=== PATIENT | male | born 1950 | race Caucasian/White ===

== ENCOUNTER 2024-09-27 13:03 | Inpatient (IN) ==
--- OUTSIDE RECORDS SUMMARY | 2024-09-27 13:09 | External Medical Summary | Summary of Care ---
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 documented in this encounter Nursing Notes * Taylor Bonilla NA - 09/12/2024 9:35 AM EST Rm Rothman presents for annual physical exam. Patient denies any concerns at this time. Medications & HM reviewed. documented in this encounter Plan of Treatment Upcoming Encounters Date Type Department Care Team (Late st Contact Info) Description 09/23/2024 8:20 AM EST Office Visit [facility] [address] [place] [id number] Lele Alanis MD [address] [place] [address] 09/25/2024 8:15 AM EST Cardiac Studies Cardiac Studies, [facility] [address] [place] [address] 12/29/2024 8:00 AM EDT Office Visit Cardiology, [facility] [address] [place] [address] Courtney Fonseca CRNP [address] [place] [address] 05/12/2025 10:30 AM EDT Appointment [facility] [address] [address] 05/12/2025 11:00 AM EDT Appointment Vascular Lab [address] [address] 05/12/2025 12:45 PM EDT Office Visit [facility] [address] [place] [address] Valentin Medina MD [address] [place] [address] Scheduled Procedures Name Priority Associated Diagnoses Date/Ti me COLONOSCOPY FLEXIBLE PROXIMAL DIAGNOSTIC Recall History of colon polyps Health Maintenance Due Date Last Done Comments Cologuard 1997 Fecal Occult Blood Test 1997 Sigmoidoscopy 1997 Adult Wellness Visit 2018 Colonoscopy 05/16/2021 05/16/2016, 05/01, 09/06/2007 COVID-19 Vaccine ( season) 2024 10/17/2021, 09/19/2021 Influenza Vaccine (FLU shot) (#1) 2024 Diabetic Eye Exam 12/18/2024 12/19/2023, (Done elsewhere), 11/16/2023, Additional history exists Diabetic Foot Exam 01/29/2025 01/30/2024, 1 , 08/13/2019, Additional history exists HbA1c 03/05/2025 09/04/2024, 01/29, 09/10/2023, Additional history exists Colorectal Cancer Screening 05/27/2025 Postponed from 1997 (Patient Declined After Education) DXA Scan 05/28/2025 Postponed from 1952 (Patient Declined After Education) Depression Screening 05/28/2025 05/28/2024 Zoster Vaccines (1 of 2) 05/28/2025 Pos tponed from 2002 (Patient Declined After Education) Albumin/Creatinine Ratio 09/04/2025 024, 06/11/2023, 11/21/2021, Additional history exists GFR 09/04/2025 09/04/2024, 01/31, 02/13/2024, Additional history exists DTap/Tdap Vaccines (3 - Td or Tdap) 03/07/2033 03/07/2023, 01/23/2013, 10/27/2002, Additional history exists RETIRED - COLONOSCOPY-EVERY 5 YRS AGES 18-100 Discontinued 05/16/2016, 05/16/2016, 09/06/2007 Pneumococcal Vaccine: 65+ Years Completed 11/21/2021, 09/12/2019, 12/27/2004 HPV (Gardasil) Vaccine Aged Out No lo nger eligible based on patient's age to complete this topic Hepatitis B Vaccine Aged Out No longe r eligible based on patient's age to complete this topic MENINGOCOCCAL (MENACTRA/MENVEO) Aged Out No longer eligible based on patient's age to complete this topic documented as of this encounter Medical Devices Not on filedocumented as of this encounter Procedures Procedure Name Priority Date/Time Associated Diagnosis Comments VISUAL ACUITY SCREEN, NURSE/TECH Routine 09/12/2024 Routine medical exam HEARING SCREEN Routine 09/12/2024 Routine medical exam documented in this encounter Results * VISUAL ACUITY SCREEN, NURSE/TECH (09/12/2024) 09/12/2024 Taylor Bradley NA - 09/12/2024 Vision: OD 20/20 OS 20/20 OU 20/20 Corrective Lenses readers Color Vision PASS Performed by LAM Quispe. us Valentin Poe III, MD MEDICINE Final Resul t * HEARING SCREEN (09/12/2024) 09/12/2024 Taylor Bradley NA - 09/12/2024 Hearing,Audiogram Results: Left Ear: 500Hz: No response 1000Hz: 20 decibels 2000Hz: 20 decibels 4000Hz: 20 decibels Right Ear: 500Hz: No response 1000Hz: 25 decibels 2000Hz: 25 decibels 4000Hz: No response Performed by LAM Quispe. us Valentin Poe III, MD MEDICINE Final Resul t documented in this encounter Visit Diagnoses Diagnosis Routine medical exam- Primary Routine general medical examination at a health care facility NSVT (nonsustained ventricular tachycardia) (HCC) Paroxysmal ventricular tachycardia Uncontrolled type 2 diabetes mellitus with hyperglycemia (HCC) DYSLIPIDEMIA, GOAL LDL BELOW 70 Other and unspecified hyperlipidemia Atherosclerosis of [place] coronary artery of [place] heart without angina pectoris Screening for tuberculosis Screening examination for pulmonary tuberculosis documented in this encounter Advance Directives * Full Code (Latest Code Status on File) Date Activated Date Inactivated Comments 03/27/2024 7:42 AM 03/27/2024 12:10 PM This order reflects the patients wishes and were consensually agreed upon. Question Answer Comments Discussion of Advance Directives occurred with: Patient * Full Code Date Activated Date Inactivated Comments 03/27/2024 6:06 AM 03/27/2024 7:42 AM This order r eflects the patients wishes and were consensually agreed upon. Question Answer Comments Discussion of Advance Directives occurred with: Patient * Full Code Date Activated Date Inactivated Comments 02/10/2019 11:15 PM 02/11/2019 6:39 PM This order reflects the patients wishes and were consensually agreed upon. Question Answer Comments Discussion of Advance Directives occurred with: Not Discussed Care Teams Oil Dispenser Relationship Specialty Start Date End Date Lele Alanis MD [address] [facility] [id number] PCP - General Family Medicine 11/09/18 documented as of this encounter
--- OUTSIDE RECORDS SUMMARY | 2024-09-27 13:09 | External Medical Summary | Summary of Care ---
Author Name Unknown Organization [facility] Address [address] [place] [address] Phone [phone] Care Team Providers Care String Top Sealer Name Role Phone Lele Alanis MD Primary Care Provider [phone] Reason for Referral * Evaluate & Treat - Unlimited Visits (Within 30 days (routine)) - Authorized Specialty Diagnoses / Procedures Referred By Michi young Referred To Contact Podiatry Diagnoses Type 2 diabetes mellitus with diabetic neuropathy, without long-term current use of insulin (HCC) Lele Alanis MD [address] [place] [address] [place] [address] Phone: tel: fax: Referral ID Status Reason Start Date Expiration Date Visits Requested Visits Authorized [id number] Authorized Specialty Services Required 4 [phone] Question Answer Referral Priority Within 30 days (routine) Where should this appointment be scheduled? [facility] Which condition are you referring this patient for? Diabetic foot care/pain Specific condition? Diabetic Foot care Medicare Patient? Yes Can Patient perform routine footcare without assistance? No Does patient have a chronic condition? Yes Has patient been seen in the past 6 months? Yes Date last seen for chronic condition: 09/23/2024 Who saw patient for chronic condition? Zeke Reason for Visit * Reason Comments Follow Up Pt states that he is here for a yearly visit Encounter Details Date Type Department Care Team (Late st Contact Info) Description 09/23/2024 8:20 AM EST [facility] [place] [facility] [address] [place] [phone] Lele Alanis MD [address] [place] [id number] Uncontrolled type 2 diabetes mellitus with hyperglycemia ([facility])*; Toe infection; PVD (peripheral vascular disease) ([facility]); OLD MYOCARDIAL INFARCT; Type 2 diabetes mellitus with diabetic neuropathy, without long-term current use of insulin ([facility]) Allergies Active Allergy Reactions Criticality Noted Date Comments Clarithromycin 02/22/2001 n/v Metformin Low 03/25/2013 Diarrhea documented as of this encounter (statuses as of 09/23/2024) Medications ASPIRIN 81 MG PO CHEW One pill by mouth once a day with food 100 5 01/20/20 08 Active ONETOUCH DELICA PLUS LANCETS MISC Use to test blood sugar up to 4 times daily dx e11.9 100 Each 5 06/13/20 19 Active Blood Glucose Monitoring Suppl (ACCU-CHEK GUIDE RI) w/Device KITIndications:Type 2 diabetes mellitus with hemoglobin A1c goal of less than 7.0% ([facility]) Use as directed. Use to check blood sugars up to 4 times a day DX:E11.9 1 Kit 06/16/20 19 Active Glucose Blood (ACCU-CHEK GUIDE) STRPIndications:Typ e 2 diabetes mellitus with hemoglobin A1c goal of less than 7.0% ([facility]) Use to check blood sugars up to [...] hemoglobin A1c goal of less than 7.0% ([facility]) Use with Lantus solostar pen up to 2 times daily e11.7 180 Each 3 11/27/19 24 Active Vitamin D3 50 MCG (1999 [place]) Oral CapsuleIndications: Vitamin D deficiency Take 1 Capsule by mouth in the morning. 90 Capsule 3 03/04/20 Active Additional Information Patient not taking.Reported on 09/23/2024 Clopidogrel Bisulfate 75 MG Oral Tablet (pLAVix)Indications :Atherosclerosis of [place] coronary artery of [place] heart without angina pectoris,Atheroscle rosis of coronary artery bypass graft of [place] heart with angina pectoris (HCC) Take 1 Tablet by mouth in the morning. 90 Tablet 1 04/15/20 Active Ranolazine ER 500 MG Oral Tablet Extended Release 12 Hour (Ranexa)Indications :Dyslipidemia, goal LDL below 70,DM type 2 nursing care encounter ([facility]),Type 2 diabetes mellitus with diabetic neuropathy, without long-term current use of insulin ([facility]),Atheroscleros is of coronary artery bypass graft of [place] heart with angina pectoris ([facility]) Take 1 Tablet by mouth in the morning and 1 Tablet before bedtime. 180 Tablet 1 04/15/20 Active Additional Information Patient taking differently:500 mg Oral,(No frequency reported), One tablet daily, every other day, Reported on 09/23/2024 Rosuvastatin Calcium 40 MG Oral Tablet (Crestor)Indication s:Dyslipidemia, goal LDL below 70,Atherosclerosis of coronary artery bypass graft of [place] heart with angina pectoris (HCC) Take 1 Tablet by mouth in the morning. 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 90 Tablet 3 04/15/20 Active Additional Information Patient taking differently:10 mg OralEVERY OTHER DAY, Reported on 09/23/2024 Gabapentin 300 MG Oral Capsule (Neurontin)Indicati ons:Type 2 diabetes mellitus with diabetic neuropathy, without long-term current use of insulin ([facility]) Take 1 Capsule by mouth in the morning and 1 Capsule before bedtime. E11.40. 180 Capsule 3 04/15/20 Active traMADol HCl 50 MG Oral Tablet (Ultram)Indications :Pain of toe, unspecified laterality Take 1 Tablet by mouth 3 times a day as needed for Pain, Moderate. 25 Tablet 07/16/20 24 Active Clotrimazole 1 % External Cream (Lotrimin) 02/28/20 24 Active Insulin Glargine Solostar 100 UNIT/ML Subcutaneous Solution Pen-injector (Lantus SoloStar)Indication s:Type 2 diabetes mellitus with hemoglobin A1c goal of less than 7.0% ([facility]) 44 units twice daily or as directed.E11.9 [...] goal LDL below 70,Coronary artery disease of [place] artery of [place] heart with stable angina pectoris ([facility]),HTN, goal below 130/80,NSVT (nonsustained ventricular tachycardia) ([facility]) Take 1 Tablet by mouth in the morning. 90 Tablet 3 08/29/20 24 Active Nitroglycerin 0.4 MG Sublingual Tablet Sublingual (Nitrostat)Indicati ons:Atherosclerosis of [place] coronary artery of [place] heart without angina pectoris Place 1 Tablet under the tongue every 5 minutes as needed for Pain, Chest. up to 3 doses in 15 minutes 25 Tablet 11 08/29/20 Active Potassium Chloride ER 10 MEQ Oral Capsule Extended ReleaseIndications: Old myocardial infarct Take 1 Capsule by mouth in the morning. 45 Capsule 3 09/23/20 24 Active documented as of this encounter (statuses as of 09/23/2024) Active Problems Problem Noted Date Diagnosed Date [...] INFARCT 04/22/2009 Overview (04/22/2009): Modified by [facility] Protocol [facility]5. 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 Study Titile: Genomic Markers for Patients with Cardiovascular Disease Project #[id number] PI: Kimmie Dubon MD Please call [phone] with study related questions Benign neoplasm of colon 09/06/2007 Overview (10/07/2007): adenomatous polyp--repeat 5 years EXAMINATION OF PARTICIPANT IN CLINICAL TRIAL 6 01/14/2010 Overview (01/14/2010): Renamed Per Clinical Trials Billing Project. [employer] Study #[id number] A clinical trial comparing treatment with cangrelor (in combination with usual care) to usual care, in subjects who require percutaneous coronary intervention Sales Advisor: Ephraim Bingham MD [phone] 1234ENTER Clinical Trial*[id number] 08/22/2006 02/15/2016 Overview (01/14/2010): Renamed Per Clinical Trials Billing Project. [employer] Study #[id number] A clinical trial comparing treatment with cangrelor (in combination with usual care) to usual care, in subjects who require percutaneous coronary intervention Sales Advisor: Ephraim Bingham MD [phone] ADVANCE DIRECTIVE INFORMATION 04/25/2005 08/04/2024 Overview (04/25/2005): Yes, Patient instructed to provide copy of advance directive for provider to review and to be scanned into Electronic Medical Record Mixed dyslipidemia 05/30/2002 9 Overview (09/15/2009): Per Lipid Taxonomy. Morbid obesity, BMI not known 05/30/2002 12/28/2009 Overview (12/28/2009): Per Obesity Taxonomy F/u of anterior myocardial infarction 05/30/2002 04/22/2009 Overview (04/22/2009): Modified by [facility] Protocol #5. Dyslipidemia, goal to be determined 05/15/2002 08/25/2009 Overview (08/25/2009): Per Lipid Taxonomy DM type 2, not at goal 02/17/200207/15 Overview (07/15/2009): Modified per Diabetes protocol #14. Type 2 diabetes mellitus wit h hemoglobin A1c goal of less than 7.0% 11/15/2007 Overview (01/25/2016): ICD-10 update of inactive term documented as of this encounter (statuses as of 09/23/2024) Immunizations Name Administration Dates Next Due COVID-19 mRNA, LNP-s, No Pre serve, 2-Dose Series (Moderna) 10/17/2021,09/19/2021 PPD 09/12/2024 Pneumococcal Conjugate Vacc, 13 Valent (Prevnar) 09/12/2019 Pneumococcal Polysaccharide PPV23 (Pneumovax) TDAP (age 10 and older)(Boostrix) 03/07/2023, documented as of this encounter Social History Tobacco Use Types Packs/Day Years Used Date Smoking Tobacco: Never Passive Smoke Exposure: Past Smokeless Tobacco: Never Tobacco Cessation:Counseling Given: Not Answered Alcohol Use Standard Drinks/Week Comments No 0 [...] 05/27/2024 Does the household have a re lar source of income? (Household - for ages [...] Sign Reading Time Taken Comments Blood Pressure 129/62 09/23/2024 7:40 AM EST Pulse 80 09/23/2024 7:40 AM EST Temperature 36.4 C (97.5 F) 09/23/2024 7:40 AM ES T Respiratory Rate 16 09/23/2024 7:40 AM EST Oxygen Saturation 96% 09/23/2024 7:40 AM EST Inhaled Oxygen Concentration - - Weight 101.2 kg (223 lb) 09/23/2024 7:40 AM EST Height 167.6 cm (5' 6") 09/23/2024 7:40 AM EST Body Mass Index 35.99 09/23/2024 7:40 AM EST documented in this encounter Functional [...] documented in this encounter Progress Notes * Lele Alanis MD - 09/23/2024 8:23 AM EST Subjective: Rm Rothman is a 74 year old male. Chief Complaint Patient presents with Follow Up Pt states that he is here for a yearly visit HPI: 74-year-old seen today for scheduled visit. When I saw him he was still having frequent episodes dizziness. That dizziness dates back to December of 2023. I let the dizziness was ultimately a result of a known cerebellar infarct it also had significant head trauma with the fall around November of 2023 in was thought to have suffered a significant concussion and postconcussion syndrome. The patientwas insistent that he will off of multiple medications in ultimately he did stop furosemide Jardiance vitamin-D and isosorbide. There was some question about him stopping metoprolol but ultimately Cardiology saw him in the end of August and documented that he was using the metoprolol and they wanted him to continue. He is scheduled for an echocardiogram as ordered by [facility] for in a few days time. Actually is doing quite well. The dizziness is not bothering him. His only concern is that his weight is up significantly today and he does not have a good explanation. His weight is up 7-9 lb. He is not aware of lower leg edema nor increased shortness of breath. His diabetes has not been controlled. His last hemoglobin A1c was over 10 and he has been off of Jardiance since last time I saw him. He worked with Dr. Thibodeaux in regards to an ulcer on the great toe of his right foot. Doing much better. He requests a referral for routine podiatry care in particular because of his history of diabetesas well as diabetic neuropathy. 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 ([facility]) Toe infection Aortocoronary bypass status Fall Poor historian Type 2 diabetes mellitus with diabetic neuropathy, without long-term current use of insulin ([facility]) Carotid stenosis, non-symptomatic, bilateral PVD (peripheral vascular disease) ([facility]) Cerebrovascular accident (CVA) ([facility]) NSVT (nonsustained ventricular tachycardia) ([facility]) Current Outpatient Medications Medication Sig Dispense Refill ASPIRIN 81 MG PO CHEW One pill by mouth once a day with food 100 5 ONETOUCH DELICA PLUS LANCETS [facility] Use to test blood sugar up to [...] 2 times daily e11.7 180 Each 3 Clopidogrel Bisulfate 75 MG Oral Tablet [...] doses in 15 minutes 25 Tablet 11 Vitamin D3 50 MCG (1999 [place]) Oral Capsule Take 1 Capsule by mouth in the morning. (Patient not taking: Reported on 09/23/2024) 90 Capsule 3 No current facility-administered medications for this visit. Review of patient's allergies indicates: Allergen Reactions Clarithromycin n/v Metformin Diarrhea Objective: BP 129/62 | Pulse 80 | Temp 97.5 F (36.4 C) (Tympanic) | Resp 16 | Ht 5' 6" (1.676 m) | Wt 223 lb (101.2 kg) | SpO2 96% | BMI 35.99 kg/m | BSA 2.17 m Physical Exam: His weight is up 9 lb compared to just 2 weeks ago. When we relayed him his weight was 221 that is still up 70 lb. CONST: alert, pleasant, no acute distress HEAD: normocephalic, atraumatic Eyes - PERRLA, EOM'I OROPHARYNX: clear, no swelling or erythema, moist CV: regular rate and rhythm, no murmur CHEST: clear to auscultation bilaterally, no rales or wheezing ABD: soft, non tender, non distended, no masses or hepatosplenomegaly EXT: no edema, no joint swelling or deformities, ASSESSMENT/PLAN: 1. Diabetes mellitus-suboptimal control. I recommended he start the Jardiance 25 mg once daily. If he develops same type of dizziness as before, will take him off the Jardiance and see if it resolves. If that is the case and will need to initiate more aggressive insulin Um treatment. 2. Weight gain-etiology is unclear although was such a quick rise in weight, fluid retention Um is thought most likely. He does not have a history of heart failure but he does have known ischemic heart disease and some decrease cardiac wall motion as well as grade 1 diastolic dysfunction. Will restart furosemide 20 mg but he will take it every other day along with potassium 10 mEq every other day. He will need to have a basic metabolic panel done as well as hemoglobin A1c before I see him againin 3 months Coronary artery disease-he is going to stay off of isosorbide as his blood pressure is at best marginal in Cardiology had already indicated the same Referral is made for [facility] for routine diabetic foot care. Check-out note: Please nikolai with [facility] Nurse visit for weight check about 1 week Lele Alanis MD documented in this encounter Nursing Notes * Ellie Solomon LPN - 09/23/2024 7:40 AM EST Rm Rothman is a 74 year old male who presents today for Chief Complaint Patient presents with Follow Up Pt states that he is here for a yearly visit documented in this encounter Plan of Treatment Upcoming Encounters Date Type Department Care Team (Late st Contact Info) Description 09/25/2024 8:15 AM EST Cardiac Studies Cardiac Studies, [facility] [address] [facility] [place] [address] 09/30/2024 1:30 PM EST Nurse Only Ancillary Department, Shayan Salazar [address] [facility] [place] [phone] Shayan, Nurse [address] [place] [address] 12/24/2024 7:40 AM EDT Office Visit [facility] [place] [facility] [address] [facility] [place] [phone] Lele Alanis MD [address] [facility] [place] [address] 12/29/2024 8:00 AM EDT Office Visit Cardiology, [facility] [address] [facility] [place] [address] Courtney Fonseca CRNP [address] [place] [address] [place] [address] 05/12/2025 10:30 AM EDT App[address]ment [facility] [address] [address] 05/12/2025 11:00 AM EDT Appointment Vascular Lab [place] [address] [place] [address] 05/12/2025 12:45 PM EDT Office Visit Vascular Surg [place] [address] [place] [address] Valentin Medina MD [address] [place] [address] Scheduled Orders Name Type Priority Associated Diagnoses Orde r Schedule HEMOGLOBIN A1C Lab Routine Uncontrolled type 2 diabetes mellitus with hyperglycemia (HCC) Expected: 09/23/2024 (Approximate), Expires: 09/23/2025 BASIC METABOLIC PANEL Lab Routine OLD MYOCARDIAL INFARCT Expected: 09/23/2024 (Approximate), Expires: 09/23/2025 Scheduled Procedures Name Priority Associated Diagnoses Date/Ti me COLONOSCOPY FLEXIBLE PROXIMAL DIAGNOSTIC Recall History of colon polyps Scheduled Referrals Name Type Priority Associated Diagnoses Orde r Schedule PODIATRY REFERRAL OP Referral Within 30 days (routine) Type 2 diabetes mellitus with diabetic neuropathy, without long-term current use of insulin (HCC) Ordered: 09/23/2024 Health Maintenance Due Date Last Done Comments [...] Not on filedocumented as of this encounter Visit Diagnoses Diagnosis Uncontrolled type 2 diabetes mellitus with hyperglycemia (HCC)- Primary Toe infection Unspecified local infection of skin and subcutaneous tissue PVD (peripheral vascular disease) (HCC) Peripheral vascular disease, unspecified OLD MYOCARDIAL INFARCT Old myocardial infarction Type 2 diabetes mellitus with diabetic neuropathy, without long-term current use of insulin (HCC) documented in this encounter Advance Directives * [...] Directives occurred with: Not Discussed Care Teams String Top Sealer Relationship Specialty Start Date End Date Lele Alanis MD PCP - General Family Medicine 11/09/18 documented as of this encounter
--- OUTSIDE RECORDS SUMMARY | 2024-09-27 13:10 | External Medical Summary | Summary of Care ---
Author Name Unknown Organization [facility] Address [address] [place] [address] Phone [phone] Care Team Providers Care Parole Board Member Name Role Phone Lele Alanis MD Primary Care Provider [phone] Reason for Visit * Reason Comments Follow Up Right foot plantar - -- left * Evaluate & Treat - Unlimited Visits (Within 10 days (routine)) - Authorized Specialty Diagnoses / Procedures Referred By Contac t Referred To Contact Wound Care Diagnoses Unspecified open wound, unspecified lower leg, initial encounter Lele Alanis MD [address] [place] [address] Phone: tel: fax: Referral ID Status Reason Start Date Expiration Date Visits Requested Visits Authorized [id number] Authorized Specialty Services Required 02/06/2024 [id number] Encounter Details Date Type Department Care Team (Late st Contact Info) Description 09/04/2024 1:20 PM EST Office Visit Wound Care, [facility] [address] [place] [address] Maria E Thibodeaux DPM [address] [place], [place] [id number] Diabetic ulcer of toe of right foot associated with type 2 diabetes mellitus, with fat layer exposed (HCC)*; Type 2 diabetes mellitus with diabetic neuropathy, without long-term current use of insulin ([facility]) Allergies Active Allergy Reactions Criticality Noted Date Comments Clarithromycin 02/22/2001 n/v Metformin Low 03/25/2013 Diarrhea documented as of this encounter (statuses as of 09/05/2024) Medications ASPIRIN 81 MG PO CHEW One pill by mouth once a day with food 100 5 01/20/20 08 Active ONETOUCH DELICA PLUS LANCETS [facility] Use to test blood sugar up to 4 times daily dx e11.9 100 Each 5 06/13/20 19 Active Blood Glucose Monitoring Suppl (ACCU-CHEK GUIDE OR) w/Device KITIndications:Type 2 diabetes mellitus with hemoglobin A1c goal of less than 7.0% ([facility]) Use as directed. Use to check blood sugars up to 4 times a day DX:E11.9 1 Kit 06/16/20 19 Active Glucose Blood (ACCU-CHEK GUIDE) STRPIndications:Typ e 2 diabetes mellitus with hemoglobin A1c goal of less than 7.0% ([facility]) Use to check blood sugars up to [...] hemoglobin A1c goal of less than 7.0% ([facility]) Use with Lantus solostar pen up to 2 times daily e11.7 180 Each 3 11/27/19 24 Active Vitamin D3 50 MCG (1999 UT) Oral CapsuleIndications: Vitamin D deficiency Take 1 Capsule by mouth in the morning. 90 Capsule 3 03/04/20 24 Active Clopidogrel Bisulfate 75 MG Oral Tablet (pLAVix)Indications :Atherosclerosis of kaibab coronary artery of kaibab heart without angina pectoris,Atheroscle rosis of coronary artery bypass graft of kaib[place] heart with angina pectoris ([facility]) Take 1 Tablet by mouth in the morning. 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 90 Tablet 3 08/29/20 24 Active Nitroglycerin 0.4 MG Sublingual Tablet Sublingual (Nitrostat)Indicati ons:Atherosclerosis of kaibab coronary artery of kaibab heart without angina pectoris Place 1 Tablet under the tongue every 5 minutes as needed for Pain, Chest. up to 3 doses in 15 minutes 25 Tablet 11 08/29/20 24 Active documented as of this encounter (statuses as of 09/05/2024) Active Problems Problem Noted Date Diagnosed Date Cerebrovascular accident (CVA) 08/29/2024 Carotid stenosis, non-symptomatic, [...] INFARCT 04/22/2009 Overview (04/22/2009): Modified by Acute CT Protocol #5. 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 Study Titile: Genomic Markers for Patients with Cardiovascular Disease Project #[id number] PI: Kimmie Dubon MD Please call [phone] with study related questions Benign neoplasm of colon 09/06/2007 Overview (10/07/2007): adenomatous polyp--repeat 5 years EXAMINATION OF PARTICIPANT IN CLINICAL TRIAL 6 01/14/2010 Overview (01/14/2010): Renamed Per Clinical Trials Billing Project. NUOFFER Study #[id number] A clinical trial comparing treatment with cangrelor (in combination with usual care) to usual care, in subjects who require percutaneous coronary intervention Chief Development Officer: Ephraim Bingham MD [phone] [employer] Clinical Trial*[id number] 08/22/2006 02/15/2016 Overview (01/14/2010): Renamed Per Clinical Trials Billing Project. NUOFFER Study # A clinical trial comparing treatment with cangrelor (in combination with usual care) to usual care, in subjects who require percutaneous coronary intervention Chief Development Officer: Ephraim Bingham MD [phone] ADVANCE DIRECTIVE INFORMATION 04/25/2005 08/04/2024 Overview (04/25/2005): Yes, Patient instructed to provide copy of advance directive for provider to review and to be scanned into Electronic Medical Record Mixed dyslipidemia 05/30/2002 9 Overview (09/15/2009): Per Lipid Taxonomy. Morbid obesity, BMI not known 05/30/2002 12/28/2009 Overview (12/28/2009): Per Obesity Taxonomy F/u of anterior myocardial infarction 05/30/2002 04/22/2009 Overview (04/22/2009): Modified by Acute CT Protocol #5. Dyslipidemia, goal to be determined 05/15/2002 08/25/2009 Overview (08/25/2009): Per Lipid Taxonomy DM type 2, not at goal 02/17/200207/15 Overview (07/15/2009): Modified per Diabetes protocol #14. Type 2 diabetes mellitus wit h hemoglobin A1c goal of less than 7.0% 11/15/2007 Overview (01/25/2016): ICD-10 update of inactive term documented as of this encounter (statuses as of 09/05/2024) Immunizations Name Administration Dates Next Due COVID-19 mRNA, LNP-s, No Pre serve, 2-Dose Series (Moderna) 10/17/2021,09/19/2021 Pneumococcal Conjugate Vacc, 13 Valent (Prevnar) 09/12/2019 Pneumococcal Polysaccharide PPV23 (Pneumovax) 11/21/2021 Seasonal Influenza Vac., MDV , IM, 0.5 mL (Fluzone) 11/09/2008(Deferred: Patient Refused) TDAP (age 10 and older)(Boostrix) 03/07/2023, documented [...] on file documented as of this encounter Functional Status * Are you [...] documented in this encounter Progress Notes * Maria E Thibodeaux DPM - 09/04/2024 10:00 AM EST Images from the original note were not included. [facility] Wound Care Follow-up Note [facility] Name: Rm Rothman : 1950 Date: 09/04/2024 REASON FOR VISIT: follow up - right first toe wound SUBJECTIVE: This patient is a 74 year old male who presents today for follow up of diabetic ulcer to the right first toe. I had met Rm on 08/19/2024. The wound had been improving, so we discussed continuing current treatment - antibiotic ointment and dry gauze bandage. We also provided him with a post- operative shoe to help offload this toe. He is wearing this shoe today. He does mention wearing a boot though to shovel snow. He offers no other concerns today. 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 adenomatous polyp--repeat 5 years Chronic ischemic heart disease Coronary atherosclerosis 10/01/99 cathed and stent placed/ stress test 12/02 old infarct mid anterior septum and anterior LV wall DM type 2, not at goal ([facility]) F/u of anterior myocardial infarction non Q wave mi in Impotence of organic origin 03-13-02 Mixed dyslipidemia Morbid obesity, BMI not known ([facility]) Sleep apnea 11/15/2007 Type 2 diabetes mellitus with hemoglobin A1c goal of less than 7.0% ([facility]) 07/15/2009 Modified per Diabetes protocol #14. ICD-10 update of inactive term ALLERGIES: Review of patient's allergies indicates: Allergen Reactions Clarithromycin n/v Metformin Diarrhea REVIEW OF SYSTEMS: N/A PROBLEM FOCUSED PODIATRIC EXAM Vascular: Pedal pulses palpable including dorsalis pedis and posterior tibial artery at 2/4 bilaterally. Capillary refill time is within normal limits to all toes. Mild non-pitting edema of both lower legs. Nosignificant swelling of the right great toe. Pedal hair growth is diminished. Neurologic: Sensation (light touch) intact to the bilateral lower extremities. Musculoskeletal: No pain is reported with palpation of either foot. 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 Dermatological: There is a discolored callus (purple) to the medial aspect of the right hallux. There is an open wound to the plantar proximal right first toe with overlying callus. There is no erythema. Current dressing: See Wound Assessment Dressing change frequency: every day RLE Compression: LLE Compression: RLE Wt Bearing Offloading: LLE Wt Bearing Offloading: RLE Non-Wt Bearing Offloading: LLE Non-Wt Bearing Offloading: Offloading Surface for Bed: Offloading Surface for Chair / Wheelchair: WOUND ASSESSMENT: Alteration in Skin Integrity Right;1st Toe Plantar (Active) Clinical Image 09/04/24 1301 Drainage none 09/04/24 1301 Odor (after cleansing wound) No 09/04/24 1301 Jaida-Wound (Surrounding Skin) Callus 09/04/24 1301 Alteration in Skin Integrity Left Foot Plantar (Active) Post-debridement measurements 0.2cm x 0.2cm x 0.1cm depth. Diagnostic Studies: No new PROCEDURE: Non OR time Out: Time out was initiated under direction and supervision of provider Maria E Thibodeaux. Correct patient identity - Yes Correct side and site - Yes Procedure matches verbalized consent -Yes Correct patient position - Yes Availability of correct implants and any special equipment or special requirements - Yes Time out occurred prior to procedure start - Yes Prophylactic antibiotic timing confirmed - N/A Witness present & agrees with the time out process. Wound location: right first toe Character of Wound/Ulcer Pre Debridement: Unchanged Indication for Debridement: Abnormal Wound Edge, Abnormal Wound Base, and Slough, Exudate Instrument Used: Scalpel Tissue and/or Material Removed: Non-Viable, Callus, Slough, and Subcutaneous Tissue Bleeding: Minimal Bleeding Controlled with: Pressure Specimen Taken: None Type of Debridement: Excisional: Subcutaneous Tissue Level of Debridement: Skin Epidermis, Skin Dermis, and Subcutaneous Tissue Anesthesia: None Bioengineered Tissue/Dermal Substrate Applied: No Character of Wound/Ulcer Post Debridement: Improved Total Measurement: Total wound surface are 0.04 cm Sq. Total area debrided was 0.04 cm Sq. Procedure Tolerated: Yes Assessment: ICD-10-CM 1. Diabetic ulcer of toe of right foot associated with type 2 diabetes mellitus, with fat layer exposed ([facility]) E11.621 L97.512 2. Type 2 diabetes mellitus with diabetic neuropathy, without long-term current use of insulin (HCC) E11.40 Plan: I performed excisional wound debridement as above. The wound size is relatively unchanged but this wound does not appear infected. There was a new area of blood blister near the base which I suspect is from him wearing boots and shoveling snow. He is to avoid this if possible. I recommended we continue the silvadene and DSD daily. Nurse will apply today. He is to continue the post-operative shoe for offloading. I will plan on seeing him in 2 weeks for debridement. He is to contact this office though if he has any questions or concerns. Follow-up: 2 weeks Maria E Thibodeaux DPM 09/04/2024 6:07 PM documented in this encounter Nursing Notes * Jany Mas LPN - 09/04/2024 1:51 PM EST Post exam provided treatment per order post debridement pictures were missed related to interruption in care as taking photo on patients phone. Right great toe-- TREATMENT OF SILVADENE - DSD - [place] to secure per his request. Assisted with socks to bilateral feet then Post op shoe to Right foot and regular shoe to left -- assisted to exit exam seating then guided to check out. * Jany Mas LPN - 09/04/2024 12:56 PM EST Images from the original note were not included. Assisted to sit safely on the exam seating aware to not rise unassisted for his safety. ASKED TO HAVE BOTH FEET LOOKED AT THIS DATE. Wound to Right great toe is with firm callus over site. No issues to not of tissue to Left toes or foot. Wound then foot washed with soap and water towel dried tolerated well. documented in this encounter Plan of Treatment Upcoming Encounters Date Type Department Care Team (Late st Contact Info) Description 09/16/2024 8:20 AM EST Office Visit Wound Care, [facility] [address] [place] [address] Maria E Thibodeaux DPM [address] [place] [address] 09/23/2024 8:20 AM EST Office Visit [facility] [address] [place] [phone] Lele Alanis MD [address] [place] [address] 09/25/2024 8:15 AM EST Cardiac Studies Cardiac Studies, [facility] [address] [place] [address] 12/29/2024 8:00 AM EDT Office Visit Cardiology, [facility] [address] [place] [address] Courtney Fonseca CRNP [address] [place] [address] 05/12/2025 10:30 AM EDT Appointment V[facility] Lab [address] [address] 05/12/2025 11:00 AM EDT Appointment Vascular Lab [address] [address] 05/12/2025 12:45 PM EDT Office Visit Vascular Surg [address] [address] Valentin Medina MD [address] [place] [address] Scheduled Procedures Name Priority Associated Diagnoses Date/Ti [...] as of this encounter Visit Diagnoses Diagnosis Diabetic ulcer of toe of right foot associated with type 2 diabetes mellitus, with fat layer exposed (HCC)- Primary Type 2 diabetes mellitus with diabetic neuropathy, [...] Directives occurred with: Not Discussed Care Teams Parole Board Member Relationship Specialty Start Date End Date Lele Alanis MD [address] [place] [address] PCP - General Family Medicine 11/09/18 documented as of this encounter
--- OUTSIDE RECORDS SUMMARY | 2024-09-27 13:10 | External Medical Summary | Summary of Care ---
Author Name Unknown Organization [facility] Address [address] [facility] [place] [address] Phone [phone] Care Team Providers Care Delicatessen Department Manager Name Role Phone Lele Alanis MD Primary Care Provider [phone] Reason for Visit * Reason Comments Follow Up RIGHT FOOT Encounter Details Date Type Department Care Team (Late st Contact Info) Description 09/16/2024 8:20 AM EST Office Visit Wound Care, [facility] [address] [place] [address] Maria E Thibodeaux, DPM [address] [place], [place] [id number] Healed wound*; Type 2 diabetes mellitus with diabetic neuropathy, without long-term current use of insulin (HCC); Callus of toe [L84] Allergies Active Allergy Reactions Criticality Noted Date [...] Active Blood Glucose Monitoring Suppl (ACCU-CHEK GUIDE IA) w/Device KITIndications:Type 2 diabetes mellitus with hemoglobin A1c goal of less than 7.0% ([facility]) Use as directed. Use to check blood sugars up to 4 times a day DX:E11.9 1 Kit 06/16/20 19 Active Glucose Blood (ACCU-CHEK GUIDE) STRPIndications:Typ e 2 diabetes mellitus with hemoglobin A1c goal of less than 7.0% ([facility]) Use to check blood sugars up to [...] hemoglobin A1c goal of less than 7.0% ([facility]) Use with Lantus solostar pen up to 2 times daily e11.7 180 Each 3 11/27/19 24 Active Vitamin D3 50 MCG (1999 UT) Oral CapsuleIndications: Vitamin D deficiency Take 1 Capsule by mouth in the morning. 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 90 Tablet 1 04/15/20 24 Active Ranolazine ER 500 MG Oral Tablet Extended Release 12 Hour (Ranexa)Indications :Dyslipidemia, goal LDL below 70,DM type 2 nursing care encounter ([facility]),Type 2 diabetes mellitus with diabetic neuropathy, without long-term current use of insulin ([facility]),Atheroscleros is of coronary artery bypass graft of tangirnaq heart with angina pectoris ([facility]) Take 1 Tablet by mouth in the morning and 1 Tablet before bedtime. 180 Tablet 1 04/15/20 24 Active Additional Information Patient taking differently:500 mg Oral,(No frequency reported), One tablet daily, every other day, Reported on 09/12/2024 Rosuvastatin Calcium 40 MG Oral Tablet (Crestor)Indication s:Dyslipidemia, goal LDL below 70,Atherosclerosis of coronary artery bypass graft of [place] heart with angina pectoris ([facility]) Take 1 Tablet by mouth in the morning. 90 Tablet 3 04/15/20 24 Active Additional Information Patient taking differently:40 mg OralEVERY OTHER DAY, Reported on 09/12/2024 Ezetimibe 10 MG Oral Tablet (Zetia)Indications: Dyslipidemia, goal LDL below 70,Atherosclerosis of coronary artery bypass graft of [place] heart with angina pectoris (HCC) Take 1 Tablet by mouth in the morning. 90 Tablet 3 04/15/20 24 Active Additional Information Patient taking differently:10 mg OralEVERY OTHER DAY, Reported on 09/12/2024 Gabapentin 300 MG Oral Capsule (Neurontin)Indicati ons:Type 2 diabetes mellitus with diabetic neuropathy, without long-term current use of insulin (HCC) Take 1 Capsule by mouth in the [...] hemoglobin A1c goal of less than 7.0% ([facility]) 44 units twice daily or as directed.E11.9 [...] goal LDL below 70,Coronary artery disease of [place] artery of [place] heart with stable angina pectoris (HCC),HTN, goal below 130/80,NSVT (nonsustained ventricular tachycardia) ([facility]) Take 1 Tablet by mouth in the morning. 90 Tablet 3 08/29/20 24 Active Nitroglycerin 0.4 MG Sublingual Tablet Sublingual (Nitrostat)Indicati ons:Atherosclerosis of [place] coronary artery of [place] heart without angina pectoris Place 1 Tablet [...] INFARCT 04/22/2009 Overview (04/22/2009): Modified by Acute DE Protocol #5. 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 Study Titile: Genomic Markers for Patients with Cardiovascular Disease Project #[id number] PI: Kimmie Dubon MD Please call [phone] with study related questions Benign neoplasm of colon 09/06/2007 Overview (10/07/2007): adenomatous polyp--repeat 5 years EXAMINATION OF PARTICIPANT IN CLINICAL TRIAL 01/14/2010 Overview (01/14/2010): Renamed Per Clinical Trials Billing Project. [employer] Study #[id number] A clinical trial comparing treatment with cangrelor (in combination with usual care) to usual care, in subjects who require percutaneous coronary intervention [employer] Outsoles: Ephraim Bingham MD [phone] [employer] Clinical Trial*[id number] 08/22/2006 02/15/2016 Overview (01/14/2010): Renamed Per Clinical Trials Billing Project. [employer] Study #[id number] A clinical trial comparing treatment with cangrelor (in combination with usual care) to usual care, in subjects who require percutaneous coronary intervention [employer] Outsoles: Ephraim Bingham MD [phone] ADVANCE DIRECTIVE INFORMATION 04/25/2005 08/04/2024 Overview (04/25/2005): Yes, Patient instructed to provide copy of advance directive for provider to review and to be scanned into Electronic Medical Record Mixed dyslipidemia 05/30/2002 9 Overview (09/15/2009): Per Lipid Taxonomy. Morbid obesity, BMI not known 05/30/2002 12/28/2009 Overview (12/28/2009): Per Obesity Taxonomy F/u of anterior myocardial infarction 05/30/2002 04/22/2009 Overview (04/22/2009): Modified by Acute DE Protocol #5. Dyslipidemia, goal to be determined [...] Notes * Maria E Thibodeaux DPM - 09/16/2024 8:20 AM EST Images from the original note were not included. [facility] Wound Care Follow-up Note [facility] Name: Rm Rothman : 1950 Date: 09/16/2024 REASON FOR VISIT: follow up - right first toe wound SUBJECTIVE: This patient is a 74 year old male who presents today for follow up of diabetic ulcer to the right first toe. I had met Rm on 09/04/24. The wound appeared similar after callus was removed and he also had additional callus and blood blister to the medial toe which was new. He notes significant pain following our last appointment. He required pain medications of which he had at home. This has resolved. He continues to apply antibiotic ointment and is using the post-operative shoe.He offers no other concerns today. 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 adenomatous polyp--repeat 5 years Chronic ischemic heart disease Coronary atherosclerosis 10/01/99 cathed and stent placed/ stress test 12/02 old infarct mid anterior septum and anterior LV wall DM type 2, not at goal ([facility]) F/u of anterior myocardial infarction non Q wave mi in Impotence of organic origin 03-13-02 Mixed dyslipidemia Morbid obesity, BMI not known ([facility]) Sleep apnea 11/15/2007 Type 2 diabetes mellitus with hemoglobin A1c goal of less than 7.0% ([facility]) 07/15/2009 Modified per Diabetes protocol #14. ICD-10 [...] amputation of the left 2nd toe. Dermatological: Callus noted to the right first toe, plantar aspect. Class Findings for Routine Foot Care Class A Findings: Non-traumatic amputation of foot or integral skeletal portion thereof Class B Findings: Advanced trophic changes (at least three of the following): hair growth (decreaseor absence) Class C Findings: Paresthesia (abnormal spontaneous sensations in feet) Modifier: Q7 - 1 Class A Finding Current dressing: See Wound Assessment Dressing change frequency: every day RLE Compression: LLE Compression: RLE Wt Bearing Offloading: LLE Wt Bearing Offloading: RLE Non-Wt Bearing Offloading: LLE Non-Wt Bearing Offloading: Offloading Surface for Bed: Offloading Surface for Chair / Wheelchair: WOUND ASSESSMENT: Alteration in Skin Integrity Right;1st Toe Plantar (Active) Clinical Image 09/16/24 08 Wound Length (cm) 2.5 cm 09/16/24 08 Wound Width (cm) 1.9 cm 09/16/24 08 Wound Depth (cm) -- (Callus) 09/16/24 0808 Drainage none 09/16/24 08 Odor (after cleansing wound) No 09/16/24 08 Jaida-Wound (Surrounding Skin) Intact 09/16/24 08 Wound Surface Area (cm^2) 4.75 cm^2 09/16/24 08 Alteration in Skin Integrity Left Foot Plantar (Active) Diagnostic Studies: No new PROCEDURE: Non OR [...] & agrees with the time out process. Procedure: After prepping the area with alcohol and allowing to dry, the hyperkeratotic lesion of the right plantar hallux was sharply pared of all hyperkeratotic skin without incident. This was performed with a #15 blade. Patient tolerated well and noted improvement following procedure. Assessment: ICD-10-CM 1. Healed wound Z87.828 2. Type 2 diabetes mellitus with diabetic neuropathy, without long-term current use of insulin (HCC) E11.40 3. Callus of toe [L84] L84 Plan: I pared the right first toe callus. The wound appears closed. No dressing required. He is to check this area and both feet daily. Nurse will apply vaseline today. He is to use cream nightly to both feet. Follow up: as needed Maria E Thibodeaux DPM 09/16/2024 9:37 AM Wound Care, [address] [address] documented in this encounter Nursing Notes * Jany Mas LPN - 09/16/2024 8:41 AM EST Post exam provided treatment as follows -- Vaseline to great toe tissue then provided information per his request of lotions also let him know this would be life long care for his feet as well. Fernie was assisted with socks and shoes then guided to check out. Aware to call if any further questions of concerns. * Jany Mas LPN - 09/16/2024 8:01 AM EST Images from the original note were not included. Assisted to sit safely on exam seating aware to not rise unassisted for his safety. Presents today with Post op shoe on right foot. Fernie has asked for left shoe and sock to be removed as well -- no open tissue is to note. Right great toe area has callused over -- no open tissue and not drainage to note. Wound washed with soap and water towel dried tolerated well. Photo and measurement of wound taken. Will alert provider of ready for care an provide tx per order post exam. documented in this encounter Plan of Treatment Upcoming Encounters Date Type Department Care Team (Late st Contact Info) Description 09/23/2024 8:20 AM EST Office Visit [facility] Mathew Resendiz [address] [place] [phone] Lele Alanis MD [address] [place] [address] 09/25/2024 8:15 AM EST Cardiac Studies Cardiac Studies, [facility] [address] [facility] [place] [address] 12/29/2024 8:00 AM EDT Office Visit Cardiology, [facility] [address] [facility] [place] [address] Courtney Fonseca CRNP [address] [place] [address] 05/12/2025 10:30 AM EDT Appointment Vascular Lab [facility] [address] [place] [address] 05/12/2025 11:00 AM EDT Appointment Vascular Lab [facility] [address] [place] [address] 05/12/2025 12:45 PM EDT Office Visit Vascular Surg [facility] [address] [place] [address] Valentin Medina MD [address] [place], [place] [id number] Scheduled Procedures Name Priority Associated Diagnoses Date/Ti [...] as of this encounter Visit Diagnoses Diagnosis Healed wound- Primary Type 2 diabetes mellitus with diabetic neuropathy, without long-term current use of insulin (HCC) Callus of toe [L84] documented in this encounter Advance Directives * [...] Directives occurred with: Not Discussed Care Teams Delicatessen Department Manager Relationship Specialty Start Date End Date Lele Alanis MD [address] [place] [address] PCP - General Family Medicine 11/09/18 documented as of this encounter
--- OUTSIDE RECORDS SUMMARY | 2024-09-27 13:10 | External Medical Summary ---
Author Name Unknown Address Unknown Organization K01:[facility] [address] [place] [address] Laboratory Report Ordering Provider Test Date Status ROSALVA HARRINGTON 09/04/2024 08:22:54 Final Normal: <30 mg/g creatinine< br/>High: 30-300 mg/g creatinine
Very High: >300 mg/g creatinine
Nephrotic: >2200 mg/g creatinine Observation Date Value Abnormality Reference (Units ) Status Albumin, Urine 09/04/2024 08:22:54 <1.20 (mg/dL) Final Creatinine, Urine 09/04/2024 08:22:54 71 (mg/dL) Final Albumin/Creatinine [Mass Ratio] in Urine 09/04/2024 08:22:54 <17 <30 (mg/g Creat) Final Performing Location [facility] [address] [place] [address]
--- OUTSIDE RECORDS SUMMARY | 2024-09-27 13:10 | External Medical Summary | Summary of Care ---
Author Name Unknown Organization [facility] Address [address] [facility] [place] [address] Phone [phone] Care Team Providers Care Capacity Planner Name Role Phone Lele Alanis MD Primary Care Provider [phone] Reason for Visit * Reason Onset Date Comments TB Test [place] 09/15/2024 Encounter Details Date Type Department Care Team (Late st Contact Info) Description 09/15/2024 8:30 AM EST Nurse Only Ancillary [facility] [address] [place] [address] [place], Nurse Fam [facility] [address] [place] [address] TB Test [place] Allergies Active Allergy Reactions Criticality Noted Date Comments Clarithromycin 02/22/2001 n/v Metformin Low 03/25/2013 Diarrhea documented as of this encounter (statuses as of 09/15/2024) Medications ASPIRIN 81 MG PO CHEW One pill by mouth once a day with food 100 5 01/20/20 08 Active ONETOUCH DELICA PLUS LANCETS MISC Use to test blood sugar up to 4 times daily dx e11.9 100 Each 5 06/13/20 19 Active Blood Glucose Monitoring Suppl (ACCU-CHEK GUIDE ME) w/Device KITIndications:Type 2 diabetes mellitus with hemoglobin A1c goal of less than 7.0% ([facility]) Use as directed. Use to check blood sugars up to 4 times a day DX:E11.9 1 Kit 06/16/20 19 Active Glucose Blood (ACCU-CHEK GUIDE) STRPIndications:Typ e 2 diabetes mellitus with hemoglobin A1c goal of less than 7.0% ([facility]) Use to check blood sugars up to [...] goal of less than 7.0% ([facility]) Use with Lantus solostar pen up to 2 times daily e11.7 180 Each 3 11/27/19 24 Active Vitamin D3 50 MCG (1999 UT) Oral CapsuleIndications: Vitamin D deficiency Take 1 Capsule by mouth in the morning. 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 180 Tablet 1 04/15/20 24 Active Additional Information Patient taking differently:500 mg Oral,(No frequency reported), One tablet daily, every other day, Reported on 09/12/2024 Rosuvastatin Calcium 40 MG Oral Tablet (Crestor)Indication s:Dyslipidemia, goal LDL below 70,Atherosclerosis of coronary artery bypass graft of [place] heart with angina pectoris (HCC) Take 1 Tablet by mouth in the morning. 90 Tablet 3 04/15/20 24 Active Additional Information Patient taking differently:40 mg OralEVERY OTHER DAY, Reported on 09/12/2024 Ezetimibe 10 MG Oral Tablet (Zetia)Indications: Dyslipidemia, goal LDL below 70,Atherosclerosis of coronary artery bypass graft of [place] heart with angina pectoris (HCC) Take 1 Tablet by mouth in the morning. 90 Tablet 3 04/15/20 24 Active Additional Information Patient taking differently:10 mg OralEVERY OTHER DAY, Reported on 09/12/2024 Gabapentin 300 MG Oral Capsule (Neurontin)Indicati ons:Type 2 diabetes mellitus with diabetic neuropathy, without long-term current use of insulin ([facility]) Take 1 Capsule by mouth in the [...] goal of less than 7.0% ([facility]) 44 units twice daily or as directed.E11.9 [...] goal LDL below 70,Coronary artery disease of [place] artery of [place] heart with stable angina pectoris ([facility]),HTN, goal below 130/80,NSVT (nonsustained ventricular tachycardia) ([facility]) Take 1 Tablet by mouth in the morning. 90 Tablet 3 08/29/20 24 Active Nitroglycerin 0.4 MG Sublingual Tablet Sublingual (Nitrostat)Indicati ons:Atherosclerosis of [place] coronary artery of [place] heart without angina pectoris Place 1 Tablet under the tongue every 5 minutes as needed for Pain, Chest. up to 3 doses in 15 minutes 25 Tablet 20 24 Active documented as of this encounter (statuses as of 09/15/2024) Active Problems Problem Noted Date Diagnosed Date [...] INFARCT 04/22/2009 Overview (04/22/2009): Modified by Acute MD Protocol #5. 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 Study Titile: Gen[employer] Markers for Patients with Cardiovascular Disease Project #[id number] PI: Kimmie Dubon MD Please call [phone] with study related questions Benign neoplasm of colon 09/06/2007 Overview (10/07/2007): adenomatous polyp--repeat 5 years EXAMINATION OF PARTICIPANT IN CLINICAL TRIAL 6 01/14/2010 Overview (01/14/2010): Renamed Per Clinical Trials Billing Project. [employer] Study #[id number] A clinical trial comparing treatment with cangrelor (in combination with usual care) to usual care, in subjects who require percutaneous coronary intervention Matte Cutter: Ephraim Bingham MD [phone] [employer] Clinical Trial*[id number] 08/22/2006 02/15/2016 Overview (01/14/2010): Renamed Per Clinical Trials Billing Project. [employer] Study # A clinical trial comparing treatment with cangrelor (in combination with usual care) to usual care, in subjects who require percutaneous coronary intervention Matte Cutter: Ephraim Bingham MD [phone] ADVANCE DIRECTIVE INFORMATION 04/25/2005 08/04/2024 Overview (04/25/2005): Yes, Patient instructed to provide copy of advance directive for provider to review and to be scanned into Electronic Medical Record Mixed dyslipidemia 05/30/2002 9 Overview (09/15/2009): Per Lipid Taxonomy. Morbid obesity, BMI not known 05/30/2002 12/28/2009 Overview (12/28/2009): Per Obesity Taxonomy F/u of anterior myocardial infarction 05/30/2002 04/22/2009 Overview (04/22/2009): Modified by Acute MD Protocol #5. Dyslipidemia, goal to be determined 05/15/2002 08/25/2009 Overview (08/25/2009): Per Lipid Taxonomy DM type 2, not at goal 02/17/200207/15 Overview (07/15/2009): Modified per Diabetes protocol #14. Type 2 diabetes mellitus wit h hemoglobin A1c goal of less than 7.0% 11/15/2007 Overview (01/25/2016): ICD-10 update of inactive term documented as of this encounter (statuses as of 09/15/2024) Immunizations Name Administration Dates Next Due COVID-19 mRNA, LNP-s, No Pre serve, 2-Dose Series (Moderna) 10/17/2021,09/19/2021 Diptheria/Tetanus (Adult) 06/01/1990 PPD 09/12/2024 Pneumococcal Conjugate Vacc, 13 Valent (Prevnar) 09/12/2019 Pneumococcal Polysaccharide PPV23 (Pneumovax) ,12/27/2004 TD - Tetanus/Diptheria (ADULT) 10/27/2002 TDAP (age 10 and older)(Boostrix) 03/07/2023, documented [...] documented in this encounter Progress Notes * Keri Marin LPN - 09/15/2024 8:31 AM EST Patient here for PPD reading. PPD Results: 0 mm documented in this encounter Plan of Treatment Upcoming Encounters Date Type Department Care Team (Late st Contact Info) Description 09/16/2024 8:20 AM EST Office Visit Wound Care, [address] [place] [address] Maria E Thibodeaux DPM [address] [place] [address] 09/23/2024 8:20 AM EST Office Visit [facility] [address] [place] [phone] Lele Alanis MD [address] [place] [address] 09/25/2024 8:15 AM EST Cardiac Studies Cardiac Studies, [facility] [address] [place] [address] 12/29/2024 8:00 AM EDT Office Visit Cardiology, [address] [address] Courtney Fonseca CRNP [address] [place] [address] 05/12/2025 10:30 AM EDT Appointment Vascular Lab [address] [address] 05/12/2025 11:00 AM EDT Appointment Vascular Lab [address] [address] 05/12/2025 12:45 PM EDT Office Visit Vascular Surg [address] [address] Valentin Medina MD [address] [place] [address] Scheduled Procedures Name Priority Associated Diagnoses Date/Ti [...] Not on filedocumented as of this encounter Advance Directives * Full Code [...] Directives occurred with: Not Discussed Care Teams Capacity Planner Relationship Specialty Start Date End Date Lele Alanis MD [address] [place] [address] PCP - General Family Medicine 11/09/18 documented as of this encounter
--- OUTSIDE RECORDS SUMMARY | 2024-09-27 13:10 | External Medical Summary | Summary of Care ---
Author Name Unknown Organization [facility] Address [address] [place] [address] Phone [phone] Care Team Providers Care Advertising Sales Associate Name Role Phone Lele Alanis MD Primary Care Provider [phone] Reason for Visit * Reason Comments Wound Care Wound noted to the p lantar right hallux * Evaluate & Treat - Unlimited Visits (Within 10 days (routine)) - Authorized Specialty Diagnoses / Procedures Referred By Contac t Referred To Contact Podiatry Diagnoses Uncontrolled type 2 diabetes mellitus with hyperglycemia (HCC) Diabetic ulcer of toe of right foot associated with type 2 diabetes mellitus, unspecified ulcer stage (HCC) Janes Mcgee MD [address] [place] [address] Phone: tel: fax: Referral ID Status Reason Start Date Expiration Date Visits Requested Visits Authorized [id number] Authorized Specialty Services Required 08/05/2024 [id number] Encounter Details Date Type Department Care Team (Late st Contact Info) Description 08/19/2024 10:00 AM EST Office Visit Wound Care, [facility] [address] [place] [address] Maria E Thibodeaux DPM [address] [place] [address] Diabetic ulcer of toe of right foot associated with type 2 diabetes mellitus, with fat layer exposed (HCC)*; Callus of toe; Type 2 diabetes mellitus with diabetic neuropathy, without long-term current use of insulin ([facility]); Diabetic ulcer of toe of right foot associated with type 2 diabetes mellitus, unspecified ulcer stage ([facility]) [E11.621, L97.519] Allergies Active Allergy Reactions Criticality Noted Date Comments Clarithromycin 02/22/2001 n/v Metformin Low 03/25/2013 Diarrhea documented as of this encounter (statuses as of 09/05/2024) Medications ASPIRIN 81 MG PO CHEW One pill by mouth once a day with food 100 5 01/20/20 08 Active ONETOUCH DELICA PLUS LANCETS [facility] Use to test blood sugar up to 4 times daily dx e11.9 100 Each 5 06/13/20 19 Active Blood Glucose Monitoring Suppl (ACCU-CHEK GUIDE [place]) w/Device KITIndications:Type 2 diabetes mellitus with hemoglobin A1c goal of less than 7.0% ([facility]) Use as directed. Use to check blood sugars up to 4 times a day DX:E11.9 1 Kit 06/16/20 19 Active Glucose Blood (ACCU-CHEK GUIDE) STRPIndications:Typ e 2 diabetes mellitus with hemoglobin A1c goal of less than 7.0% ([facility]) Use to check blood sugars [...] hemoglobin A1c goal of less than 7.0% ([facility]) Use with Lantus solostar pen up to 2 times daily e11.7 180 Each 3 11/27/19 24 Active Vitamin D3 50 MCG (1999 UT) Oral CapsuleIndications: Vitamin D deficiency Take 1 Capsule by mouth in the morning. 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 90 Tablet 04/15/20 24 Active Additional Information Patient taking differently:10 mg OralEVERY OTHER DAY, Reported on 08/29/2024 Gabapentin 300 MG Oral Capsule (Neurontin)Indicati ons:Type 2 diabetes mellitus with diabetic neuropathy, without long-term current use of insulin ([facility]) Take 1 Capsule by mouth [...] hemoglobin A1c goal of less than 7.0% ([facility]) 44 units twice daily or as directed.E11.9 75 mL 3 04/17/20 24 Active hydrocortisone 1%/clotrimazole 1% 1:1 (Clotrimazole) cream Apply topically to affected area 2 times a day. 180 g 1 08/05/20 24 Active Furosemide 20 MG Oral Tablet (Lasix)Indications: Edema, unspecified type TAKE 1 TABLET BY MOUTH EVERY DAY 90 Tablet 3 03/20/20 24 024 Discontin ued(Patie nt preferenc e/discont inuation) oxyCODONE HCl 5 MG Oral Tablet (Oxy IR) Take 1 Tablet by mouth every 6 hours as needed for Pain, Severe. 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 90 Tablet 3 04/15/20 24 024 Discontin ued(Patie nt preferenc e/discont inuation) Nitroglycerin 0.4 MG Sublingual Tablet Sublingual (Nitrostat)Indicati ons:Atherosclerosis of elim ira coronary artery of elim ira heart without angina pectoris Place 1 Tablet under the tongue every 5 minutes as needed for Pain, Chest. up to 3 doses in 15 minutes 150 Tablet 1 08/13/20 24 024 Discontin ued(Refil l) documented as of this encounter (statuses as [...] INFARCT 04/22/2009 Overview (04/22/2009): Modified by Acute MS Protocol #5. 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 Study Titile: Genomic Markers for Patients with Cardiovascular Disease Project #[id number] PI: Kimmie Dubon MD Please call [phone] with study related questions Benign neoplasm of colon 09/06/2007 Overview (10/07/2007): adenomatous polyp--repeat 5 years EXAMINATION OF PARTICIPANT IN CLINICAL TRIAL 6 01/14/2010 Overview (01/14/2010): Renamed Per Clinical Trials Billing Project. [employer] Study #[id number] A clinical trial comparing treatment with cangrelor (in combination with usual care) to usual care, in subjects who require percutaneous coronary intervention Transport Rn: Ephraim Bingham MD [phone] [employer] Clinical Trial*[id number] 08/22/2006 02/15/2016 Overview (01/14/2010): Renamed Per Clinical Trials Billing Project. [employer] Study #[id number] A clinical trial comparing treatment with cangrelor (in combination with usual care) to usual care, in subjects who require percutaneous coronary intervention Transport Rn: Ephraim Bingham MD [phone] ADVANCE DIRECTIVE INFORMATION 04/25/2005 08/04/2024 Overview (04/25/2005): Yes, Patient instructed to provide copy of advance directive for provider to review and to be scanned into Electronic Medical Record Mixed dyslipidemia 05/30/2002 9 Overview (09/15/2009): Per Lipid Taxonomy. Morbid obesity, BMI not known 05/30/2002 12/28/2009 Overview (12/28/2009): Per Obesity Taxonomy F/u of anterior myocardial infarction 05/30/2002 04/22/2009 Overview (04/22/2009): Modified by Acute MS Protocol #5. Dyslipidemia, goal to be determined [...] 2-Dose Series (Moderna) 10/17/2021,09/19/2021 Diptheria/Tetanus (Adult) 06/01/1990 Pneumococcal Conjugate Vacc, 13 Valent (Prevnar) 09/12/2019 Pneumococcal Polysaccharide PPV23 (Pneumovax) 11/21/2021,12/27/2004 Seasonal Influenza Vac., MDV , IM, 0.5 mL (Fluzone) 11/09/2008(Deferred: Patient Refused) TD - Tetanus/Diptheria (ADULT) 10/27/2002 TDAP (age [...] Notes * Maria E Thibodeaux DPM - 08/20/2024 8:47 AM EST Images from the original note were not included. [facility] Wound Care Initial Consult [facility] Name: Rm Rothman : 1950 Date: 08/19/2024 CHIEF COMPLAINT: right first toe wound HISTORY OF PRESENT ILLNESS: Patient is a 74 year old male who presents today unaccompanied. He presents in normal supportive shoes. He reports a significant foot history. He has a wound to the bottomof the right great toe for about 3 weeks. He recently saw my colleague Dr. Grant who recommended antibiotic ointment of which he has been doing. He also notes issues with the end of this left third toe - appears thickened. He also mentions issues with a callus to the bottom of the left foot which currently ok. Rm had a partial amputation of the left second toe in March (Dr. Cummins [facility]) which has healed. He also reports seeing other podiatrists in the past. He denies foot pain today. PMH and medications reviewed. He does have type 2 DM. 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 adenomatous polyp--repeat 5 years Chronic ischemic heart disease Coronary atherosclerosis 10/01/99 cathed and stent placed/ stress test 12/02 old infarct mid anterior septum and anterior LV wall DM type 2, not at goal ([facility]) F/u of anterior myocardial infarction non Q wave mi in Impotence of organic origin 03-13-02 Mixed dyslipidemia Morbid obesity, BMI not known ([facility]) Sleep apnea 11/15/2007 Type 2 diabetes mellitus with hemoglobin A1c goal of less than 7.0% ([facility]) 07/15/2009 Modified per Diabetes protocol #14. ICD-10 update of inactive term Past Surgical History: Procedure Laterality Date ALVEOPLASTY W/ EXTRACTION Bilateral 12/12/2019 ALVEOLOPLASTY IN CONJUNCTION W/EXT - PER QUAD performed by Radha Melgar DMD at OR [facility] CABG, ARTERIAL, SINGLE 11/26/06 CORONARY ARTERY BYPASS GRAFT USING ARTERY 1 GRAFT performed by SMOOTH GUERRERO at [facility] CABG, ARTERY-VEIN, THREE 11/26/06 CORONARY ARTERY BYPASS GRAFT ARTERIAL AND VENOUS 3 GRAFTS performed by SMOOTH GUERRERO at OR [facility] COLONOSCOPY THRU STOMA, W/BIOPSY 09/06/07 adenomatous polyp--repeat 5 years COLONOSCOPY, DIAGNOSTIC (RECTUM) 05/16/2016 diverticulosis, repeat 5 yrs/COLONOSCOPY FLEXIBLE PROXIMAL DIAGNOSTIC performed by Bishop Spear MD at ENDOSCOPY [facility] CORONARY ARTERY DILATION, BALLOON PTCA with stent CORONARY ARTERY DILATION, BALLOON ptca with stent ENDO,VIDEO ASSIST HARVEST HARSH 11/26/06 ENDOSCOPY VIDEO ASSISTED HARVEST VEIN performed by SMOOTH GUERRERO at OR [facility] MISCELLANEOUS ORDER ([facility] ONLY) Exam under anestheia for adhesive capsulitis PARTIAL AMPUTATION OF TOE Left 03/27/2024 AMPUTATION TOE INTERPHALANGEAL JOINT performed by Spike Cummins MD at OR [facility] REMOVAL OF TONSILS, UNDER AGE 14 age9 REPAIR/GRAFT ACHILLES TENDON Achilles Tendon Repair/Graft left SURGICAL REMOVAL, ERUPTED TOOTH AND BONE Bilateral 12/12/2019 SURGICAL EXTRACTION ERUPTED TOOTH performed by Radha Melgar DMD at OR [facility] VASECTOMY 03/02 malina Family History Problem Relation Name Age of Onset Diabetes Mother Diabetes Grandmother (Maternal) Heart Disorder Father of heart attack @ 47 Stroke Mother just had a stroke @ 73 No Past Hx Son No Past Hx Daughter Social History Socioeconomic History Marital status: Number of children: 2 Years of education: 12 Occupational History 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 Social Needs Financial Resource Strain: Low Risk (05/27/2024) Financial Resource Strain Do you have any trouble paying for your medications, or do you think you might in the future? (Adult - for ages 18 years and over): No Food Insecurity: No Food Insecurity (05/27/2024) Food Insecurity Do you need food for this week? (Adult - for ages 18 years and over): No Transportation Needs: No Transportation Needs (05/27/2024) Transportation Needs Has lack of transportation kept you from medical appointments, meetings, work, or from getting things needed for daily living? Check all that apply. (Adult - for ages 18 years and over): No Social Connections: Socially Integrated (05/27/2024) Social Connections How often do you feel lonely or isolated from those around you? (Adult - for ages 18 years and over): Never Housing Stability: Low Risk (05/27/2024) Housing Stability Do you currently live in a usp or have no steady place to sleep at night? (Adult - for ages 18 years and over): No Are you homeless or worried that you might be in the future? (Adult - for ages 18 years and over): No Current Outpatient Medications Medication Sig Dispense Refill ASPIRIN 81 MG PO CHEW One pill by mouth once a day with food 100 5 ONETOUCH DELICA PLUS LANCETS MISC Use to test blood sugar up to 4 times daily dx e11.9 100 Each 5 Blood Glucose Monitoring Suppl (ACCU-CHEK GUIDE ME) w/Device KIT Use as directed. Use to check blood sugars up to 4 times a day DX:E11.9 1 Kit 0 Glucose Blood (ACCU-CHEK GUIDE) STRP Use to check blood sugars up to 4 times a day DX:E11.9 150 Strip 11 acetaminophen (TYLENOL) 500 MG Tablet Take 1 Tab by mouth every 6 hours as needed for Pain. (Patient not taking: Reported on 08/13/2024) 30 Tab 0 BD Pen Needle Short U/F 31G X 8 MM (Insulin Pen Needle) Use with Lantus solostar pen up to 2 times daily e11.7 180 Each 3 Vitamin D3 50 MCG (2000 UT) Oral Capsule Take 1 Capsule by mouth in the morning. 90 Capsule 3 Furosemide 20 MG Oral Tablet (Lasix) TAKE 1 TABLET BY MOUTH EVERY DAY (Patient not taking: Reportedon 08/13/2024) 90 Tablet 3 oxyCODONE HCl 5 MG Oral Tablet (Oxy IR) Take 1 Tablet by mouth every 6 hours as needed for Pain, Severe. 8 Tablet 0 Metoprolol Tartrate 37.5 MG Oral Tablet Take 37.5 mg by mouth in the morning and 37.5 mg before bedtime. 60 Tablet 1 Clopidogrel Bisulfate 75 MG Oral Tablet (pLAVix) Take 1 Tablet by mouth in the morning. 90 Tablet 1 Isosorbide Mononitrate ER 60 MG Oral Tablet Extended Release 24 Hour (Imdur) Take 1 Tablet by mouthin the morning. 90 Tablet 1 Ranolazine ER 500 MG Oral Tablet Extended Release 12 Hour (Ranexa) Take 1 Tablet by mouth in the morning and 1 Tablet before bedtime. 180 Tablet 1 Rosuvastatin Calcium 40 MG Oral Tablet (Crestor) Take 1 Tablet by mouth in the morning. (Patient not taking: Reported on 08/13/2024) 90 Tablet 3 Ezetimibe 10 MG Oral Tablet (Zetia) Take 1 Tablet by mouth in the morning. 90 Tablet 3 Empagliflozin 25 MG Oral Tablet (Jardiance) Take 1 Tablet by mouth in the morning. (Patient not taking: Reported on 08/13/2024) 90 Tablet 3 Gabapentin 300 MG Oral [...] area 2 timesa day. 180 g 1 Nitroglycerin 0.4 MG Sublingual Tablet Sublingual (Nitrostat) Place 1 Tablet under the tongue every5 minutes as needed for Pain, Chest. up to 3 doses in 15 minutes 150 Tablet 1 No current facility-administered medications for this visit. ALLERGIES: Review of patient's allergies indicates: Allergen Reactions Clarithromycin n/v Metformin Diarrhea REVIEW OF SYSTEMS: CONSTITUTIONAL: No fevers, sweats, or chills PROBLEM FOCUSED PODIATRIC EXAM Vascular: Pedal pulses [...] is a discolored callus (purple) to the distal aspect of the left third toe. There is an open wound to the plantar proximal right first toe. Base red granular. Boards are discolored/hyperkeratotic. There is no erythema, drainage, or odor. Current dressing: See Wound Assessment Dressing change frequency: every day RLE Compression: LLE Compression: RLE Wt Bearing Offloading: LLE Wt Bearing Offloading: RLE Non-Wt Bearing Offloading: LLE Non-Wt Bearing Offloading: Offloading Surface for Bed: Offloading Surface for Chair / Wheelchair: WOUND ASSESSMENT: Alteration in Skin Integrity Right;1st Toe Plantar (Active) Clinical Image 08/19/24 1027 Wound Length (cm) 0.2 cm 08/19/24 1027 Wound Width (cm) 0.2 cm 08/19/24 1027 Wound Depth (cm) 0.2 cm 08/19/24 1027 Granulation Tissue (%) 100% 08/19/24 0951 Granulation Tissue Color pale/pink 08/19/24 0951 Drainage serous, mild 08/19/24 0951 Odor (after cleansing wound) No 08/19/24 0951 Jaida-Wound (Surrounding Skin) Callus 08/19/24 0951 Wound Surface Area (cm^2) 0.04 cm^2 08/19/24 1027 Wound Volume (cm^3) 0.008 cm^3 08/19/24 1027 Alteration in Skin Integrity Left Foot Plantar (Active) Clinical Image 08/19/24 0954 Diagnostic Studies: Hemoglobin AIC Results: Lab Results Component Value Date/Time HEMOGLOBIN A1C - [facility] 11.0 (H) 02/13/2024 09:16 AM HEMOGLOBIN A1C - [facility] 10.1 (H) 09/10/2023 08:51 AM HEMOGLOBIN A1C - [facility] 9.8 (H) 05/28/2023 10:04 AM HEMOGLOBIN A1C - [facility] 8.8 (H) 07/31/2020 09:13 AM HEMOGLOBIN A1C - [facility] 12.4 (H) 04/07/2020 09:10 AM HEMOGLOBIN A1C - [facility] 8.8 (H) 11/25/2019 08:05 AM PROCEDURE: Non OR time Out: Time out [...] first toe Character of Wound/Ulcer Pre Debridement: Improved Indication for Debridement: Abnormal Wound Edge Instrument Used: Scalpel Tissue and/or Material Removed: Non-Viable, Callus, and Skin Bleeding: Minimal Bleeding Controlled with: Pressure Specimen Taken: None Type of Debridement: Non-Excisional (Open Wound): Skin, Non-viable Level of Debridement: Skin Epidermis and Skin Dermis Anesthesia: None Bioengineered Tissue/Dermal Substrate Applied: No Character of Wound/Ulcer Post Debridement: Improved Total Measurement: Total wound surface are 0.04 cm Sq. Total area debrided was 0.04 cm Sq. Procedure Tolerated: Yes Procedure: After prepping the area with alcohol and allowing to dry, the hyperkeratotic lesion of the left third toe distal aspect was sharply pared of all hyperkeratotic skin without incident. This was performed with a #15 blade. Class Findings for Routine Foot Care Class A Findings: Non-traumatic amputation of foot or integral skeletal portion thereof Class B Findings: Advanced trophic changes (at least three of the following): hair growth (decreaseor absence) and nail changes (thickening) Class C Findings: Edema and Paresthesia (abnormal spontaneous sensations in feet) Modifier: Q7 - 1 Class A Finding Assessment: 1. Diabetic ulcer of toe of right foot associated with type 2 diabetes mellitus, with fat layer exposed (HCC) (Primary) 2. Callus of toe 3. Type 2 diabetes mellitus with diabetic neuropathy, without long-term current use of insulin (HCC) Plan: I pared the left third toe callus which does not appear open. I discussed likely hammertoe and neuropathy contributing to callus formation. I also performed open wound debridement as above of the right great toe wound. Rm did show me a photo of this wound and it does appear improved. Because of this, I recommended we continue bacitracin or similar ointment with a dry gauze bandage. Nurse will apply today and he is to change daily.I also discussed option of offloading this wound with a post-operative show which we will dispense.He is to not drive in this device. I reviewed most recent [id number] which was elevated. I discussed that high blood sugars can contribute to neuropathy and other complications including delayed wound healing. He is to contact this office with any questions or concerns. Follow-up: 2 weeks Maria E Thibodeaux DPM 08/20/2024 8:47 AM documented in this encounter Nursing Notes * Nicole Gonzalez CMA - 08/19/2024 12:24 PM EST Images from the original note were not included. Treatment done as ordered by Dr. Thibodeaux Post-debridement photo taken Bacitracin applied to R/great toe wound, covered with 2x2 and then wrapped with Coban * Nicole Gonzalez CMA - 08/19/2024 10:03 AM EST Images from the original note were not included. * Thais Cedillo LPN - 08/19/2024 9:42 AM EST Patient was instructed to not get up on the exam table/exam chair until directed and assisted by their provider; patient is to remain seated in the chair/ wheelchair/ exam table/ exam chair for fall prevention and safety reasons. Patient is aware to have assistance to step down off exam table/exam chair with personnel. Patient voiced full comprehension of instructions. Presents for wound on right great toe X 3 weeks. Pt has applied OTC ointment on right foot. Callous on dorsum of left 4th metatarsal X months. Skin on lower extremities cleansed with soap and water then dried. Pictures to document areas. Thais Mullins LPN documented in this encounter Miscellaneous Notes * Addendum Note - Huong Gonsalez LPN - 09/05/2024 9:01 AM ESTAddended by: HUONG GONSALEZ on: 09/05/2024 09:01 AM Modules accepted: Orders documented in this encounter Plan of Treatment Upcoming Encounters Date Type Department Care Team (Late st Contact Info) Description 09/16/2024 8:20 AM EST Office Visit Wound Care, [facility] [address] [place] [address] Maria E Thibodeaux DPM [address] [place] [address] 09/23/2024 8:20 AM EST Office Visit [facility] [address] [facility] [place] [phone] Lele Alanis MD [address] [facility] [place] [address] 09/25/2024 8:15 AM EST Cardiac Studies Cardiac Studies, [facility] [address] [facility] [place] [address] 12/29/2024 8:00 AM EDT Office Visit Cardiology, [facility] [address] [place] [address] Courtney Fonseca CRNP [address] [place] [address] 05/12/2025 10:30 AM EDT Appointment Vascular Lab [address] [address] 05/12/2025 11:00 AM EDT Appointment Vascular Lab [address] [address] 05/12/2025 12:45 PM EDT Office Visit Vascular [facility] [place] [address] [place] [address] Valentin Medina MD [address] [place] [address] Scheduled Procedures Name Priority Associated Diagnoses Date/Ti [...] foot associated with type 2 diabetes mellitus, unspecified ulcer stage (HCC) [E11.621, L97.519] Callus of toe Type 2 diabetes mellitus with diabetic neuropathy, [...] Directives occurred with: Not Discussed Care Teams Advertising Sales Associate Relationship Specialty Start Date End Date Lele Alanis MD [address] [place] [address] PCP - General Family Medicine 11/09/18 documented as of this encounter
--- OUTSIDE RECORDS SUMMARY | 2024-09-27 13:10 | External Medical Summary | Summary of Care ---
Author Name Unknown Organization [facility] Address [address] [facility] [place] [address] Phone [phone] Care Team Providers Care Remelt Furnace Expediter Name Role Phone Lele Alanis MD Primary Care Provider [phone] Encounter Details Date Type Department Care Team (Late st Contact Info) Description 07/01/2024 Result Scan Unspecified Department <No scans attached> Allergies Active Allergy Reactions Criticality Noted Date Comments Clarithromycin 02/22/2001 n/v Metformin Low 03/25/2013 Diarrhea documented as of this encounter (statuses as of 09/01/2024) Medications ASPIRIN 81 MG PO CHEW One pill by mouth once a day with food 100 5 01/20/20 08 Active ONETOUCH DELICA PLUS LANCETS MISC Use to test blood sugar up to 4 times daily dx e11.9 100 Each 5 06/13/20 19 Active Blood Glucose Monitoring Suppl (ACCU-CHEK GUIDE CA) w/Device KITIndications:Type 2 diabetes mellitus with hemoglobin A1c goal of less than 7.0% ([facility]) Use as directed. 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 180 Tablet 1 04/15/20 24 Active Additional Information Patient taking differently:500 mg Oral,(No frequency reported), One tablet daily, every other day, Reported on 08/29/2024 Rosuvastatin Calcium 40 MG Oral Tablet (Crestor)Indication s:Dyslipidemia, goal LDL below 70,Atherosclerosis of coronary artery bypass graft of [place] heart with angina pectoris ([facility]) Take 1 Tablet by mouth in the morning. 90 Tablet 3 04/15/20 24 Active Additional Information Patient taking differently:40 mg OralEVERY OTHER DAY, Reported on 08/29/2024 Ezetimibe 10 MG Oral Tablet (Zetia)Indications: Dyslipidemia, goal LDL below 70,Atherosclerosis of coronary artery bypass graft of [place] heart with angina pectoris ([facility]) [...] A1c goal of less than 7.0% (HCC) 44 units twice daily or as directed.E11.9 75 mL 3 04/17/20 24 Active documented as of this encounter (statuses as of 09/01/2024) Active Problems Problem Noted Date Diagnosed Date [...] INFARCT 04/22/2009 Overview (04/22/2009): Modified by Acute [place] Protocol #5. 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 Study Titile: Genomic Markers for Patients with Cardiovascular Disease Project #[id number] PI: Kimmie Dubon MD Please call [phone] with study related questions Benign neoplasm of colon 09/06/2007 Overview (10/07/2007): adenomatous polyp--repeat 5 years EXAMINATION OF PARTICIPANT IN CLINICAL TRIAL 6 01/14/2010 Overview (01/14/2010): Renamed Per Clinical Trials Billing Project. [employer] Study #[id number] A clinical trial comparing treatment with cangrelor (in combination with usual care) to usual care, in subjects who require percutaneous coronary intervention Neurodiagnostic Tech: Ephraim Bingham MD [phone] [email or web address] Clinical Trial*[id number] 08/22/2006 02/15/2016 Overview (01/14/2010): Renamed Per Clinical Trials Billing Project. [employer] Study #[id number] A clinical trial comparing treatment with cangrelor (in combination with usual care) to usual care, in subjects who require percutaneous coronary intervention Neurodiagnostic Tech: Ephraim Bingham MD [phone] ADVANCE DIRECTIVE INFORMATION 04/25/2005 08/04/2024 Overview (04/25/2005): Yes, Patient instructed to provide copy of advance directive for provider to review and to be scanned into Electronic Medical Record Mixed dyslipidemia 05/30/2002 9 Overview (09/15/2009): Per Lipid Taxonomy. Morbid obesity, BMI not known 05/30/2002 12/28/2009 Overview (12/28/2009): Per Obesity Taxonomy F/u of anterior myocardial infarction 05/30/2002 04/22/2009 Overview (04/22/2009): Modified by Acute [place] Protocol #5. Dyslipidemia, goal to be determined 05/15/2002 08/25/2009 Overview (08/25/2009): Per Lipid Taxonomy DM type 2, not at goal 02/17/200207/15 Overview (07/15/2009): Modified per Diabetes protocol #14. Type 2 diabetes mellitus wit h hemoglobin A1c goal of less than 7.0% 11/15/2007 Overview (01/25/2016): ICD-10 update of inactive term documented as of this encounter (statuses as of 09/01/2024) Immunizations Name Administration Dates Next Due COVID-19 [...] Entry Date Author No 02/11/2019 1:19 AM EDT Phoebe Bansal RN documented in this encounter Plan of Treatment Upcoming Encounters Date Type Department Care Team (Late st Contact Info) Description 09/04/2024 10:00 AM EST Office Visit Wound Care, [facility] [address] [place] [address] Maria E Thibodeaux DPM [address] [place] [address] 09/23/2024 8:20 AM EST Office Visit [facility] [address] [place] [address] Lele Alanis MD [address] [place] [address] 09/25/2024 8:15 AM EST Cardiac Studies Cardiac Studies, [facility] [address] [place] [address] 12/29/2024 8:00 AM EDT Office Visit Cardiology, [facility] [address] [place] [address] Courtney Fonseca CRNP [address] [place] [address] 05/12/2025 10:30 AM EDT Appointment Vascular Lab [address] [address] 05/12/2025 11:00 AM EDT Appointment Vascular Lab [address] [address] 05/12/2025 12:45 PM EDT Office Visit Vascular Surg [address] [address] Valentin Medina MD [facility] [place] [address] Scheduled Procedures Name Priority Associated Diagnoses Date/Ti me COLONOSCOPY FLEXIBLE PROXIMAL DIAGNOSTIC Recall History of colon polyps Health Maintenance Due Date Last Done Comments Cologuard 1997 Fecal Occult Blood Test 1997 Sigmoidoscopy 1997 Adult Wellness Visit 2018 Colonoscopy 05/16/2021 05/16/2016, 05/01, 09/06/2007 COVID-19 Vaccine ( season) 2024 10/17/2021, 09/19/2021 Influenza Vaccine (FLU shot) (#1) 2024 Albumin/Creatinine Ratio 06/11/2024 023, 11/21/2021, 09/07/2016, Additional history exists HbA1c 08/15/2024 02/13/2024, 08/31, 05/28/2023, Additional history exists Diabetic Eye Exam 12/18/2024 12/19/2023, (Done elsewhere), 11/16/2023, Additional history exists Diabetic Foot Exam 01/29/2025 01/30/2024, 1 , 08/13/2019, Additional history exists GFR 02/27/2025 02/28/2024, 01/29, 09/10/2023, Additional history exists Colorectal Cancer Screening 05/27/2025 Postponed from 1997 (Patient Declined After Education) DXA Scan 05/28/2025 Postponed from 1952 (Patient Declined After Education) Depression Screening 05/28/2025 05/28/2024 Zoster Vaccines (1 of 2) 05/28/2025 Pos tponed from 2002 (Patient Declined After Education) DTap/Tdap Vaccines (3 - Td or Tdap) [...] Procedure Name Priority Date/Time Associated Diagnosis Comments EKG SCANNED RESULT 07/01/2024 documented in this encounter Results * EKG SCANNED RESULT (07/01/2024) 07/01/2024 us No Physician Data Unknown EKG Final Result documented in this encounter Advance Directives * [...] Directives occurred with: Not Discussed Care Teams Remelt Furnace Expediter Relationship Specialty Start Date End Date Lele Alanis MD [address] [place] [address] PCP - General Family Medicine 11/09/18 documented as of this encounter
--- OUTSIDE RECORDS SUMMARY | 2024-09-27 13:10 | External Medical Summary | Summary of Care ---
Author Name Unknown Organization [facility] Address [address] [facility] [place] [address] Phone [phone] Care Team Providers Care International Trade Teacher Name Role Phone Lele Alanis MD Primary Care Provider [phone] Reason for Visit * Reason Onset Date Comments TB Test Reading 09/15/2024 Encounter Details Date Type Department Care Team (Late st Contact Info) Description 09/15/2024 8:30 AM EST Nurse Only Ancillary [facility] [address] [place] [address] [place], Nurse Fam [facility] [address] [place] [address] TB Test Reading Allergies Active Allergy Reactions [...] hemoglobin A1c goal of less than 7.0% ([facility]) Use as directed. Use to check blood sugars up to 4 times a day DX:E11.9 1 Kit 06/16/20 19 Active Glucose Blood (ACCU-CHEK GUIDE) STRPIndications:Typ e 2 diabetes mellitus with hemoglobin A1c goal of less than 7.0% ([facility]) Use to check blood sugars up [...] hemoglobin A1c goal of less than 7.0% ([facility]) Use with Lantus solostar pen up to 2 times daily e11.7 180 Each 3 11/27/19 24 Active Vitamin D3 50 MCG (1999 [place]) Oral CapsuleIndications: Vitamin D deficiency Take 1 Capsule by mouth in the morning. 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 180 Tablet 1 04/15/20 24 Active Additional Information Patient taking differently:500 mg Oral,(No frequency reported), One tablet daily, every other day, Reported on 09/12/2024 Rosuvastatin Calcium 40 MG Oral Tablet (Crestor)Indication s:Dyslipidemia, goal LDL below 70,Atherosclerosis of coronary artery bypass graft of [place] heart with angina pectoris (HCC) Take 1 Tablet by mouth in the morning. 90 Tablet 3 04/15/20 24 Active Additional Information Patient taking differently:40 mg OralEVERY OTHER DAY, Reported on 09/12/2024 Ezetimibe 10 MG Oral Tablet (Zetia)Indications: Dyslipidemia, goal LDL below 70,Atherosclerosis of coronary artery bypass graft of [place] heart with angina pectoris (HCC) Take 1 Tablet by mouth in the morning. 90 Tablet 3 04/15/20 24 Active Additional Information Patient taking differently:10 mg OralEVERY OTHER DAY, Reported on 09/12/2024 Gabapentin 300 MG Oral Capsule (Neurontin)Indicati ons:Type 2 diabetes mellitus with diabetic neuropathy, without long-term current use of insulin ([facility]) Take 1 Capsule by mouth in [...] hemoglobin A1c goal of less than 7.0% ([facility]) 44 units twice daily or as [...] goal LDL below 70,Coronary artery disease of [place] artery of [place] heart with stable angina pectoris ([facility]),HTN, goal below 130/80,NSVT (nonsustained ventricular tachycardia) ([facility]) Take 1 Tablet by mouth in the morning. 90 Tablet 3 08/29/20 24 Active Nitroglycerin 0.4 MG Sublingual Tablet Sublingual (Nitrostat)Indicati ons:Atherosclerosis of [place] coronary artery of [place] heart without angina pectoris Place 1 Tablet [...] INFARCT 04/22/2009 Overview (04/22/2009): Modified by Acute [place] Protocol #5. 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 Study Titile: Genomic Markers for Patients with Cardiovascular Disease Project #[id number] PI: Kimmie Dubon MD Please call [phone] with study related questions Benign neoplasm of colon 09/06/2007 Overview (10/07/2007): adenomatous polyp--repeat 5 years EXAMINATION OF PARTICIPANT IN CLINICAL TRIAL 6 01/14/2010 Overview (01/14/2010): Renamed Per Clinical Trials Billing Project. [employer] Study #[id number] A clinical trial comparing treatment with cangrelor (in combination with usual care) to usual care, in subjects who require percutaneous coronary intervention Doweler: Ephraim Bingham MD [phone] [employer] Clinical Trial*[id number] 08/22/2006 02/15/2016 Overview (01/14/2010): Renamed Per Clinical Trials Billing Project. [employer] Study # A clinical trial comparing treatment with cangrelor (in combination with usual care) to usual care, in subjects who require percutaneous coronary intervention Doweler: Ephraim Bingham MD [phone] ADVANCE DIRECTIVE INFORMATION 04/25/2005 08/04/2024 Overview (04/25/2005): Yes, Patient instructed to provide copy of advance directive for provider to review and to be scanned into Electronic Medical Record Mixed dyslipidemia 05/30/2002 9 Overview (09/15/2009): Per Lipid Taxonomy. Morbid obesity, BMI not known 05/30/2002 12/28/2009 Overview (12/28/2009): Per Obesity Taxonomy F/u of anterior myocardial infarction 05/30/2002 04/22/2009 Overview (04/22/2009): Modified by Acute [place] Protocol #5. Dyslipidemia, goal to be determined [...] 8:20 AM EST Office Visit Wound Care, [address] [place] [address] Maria E Thibodeaux DPM [address] [place] [address] 09/23/2024 8:20 AM EST Office Visit [facility] [address] [place] [id number] Lele Alanis MD [address] [place] [address] 09/25/2024 8:15 AM EST Cardiac Studies Cardiac Studies, [facility] [address] [place] [address] 12/29/2024 8:00 AM EDT Office Visit Cardiology, [address] [address] Courtney Fonseca CRNP [address] [place] [address] 05/12/2025 10:30 AM EDT Appointment Vascular Lab [address] [address] 05/12/2025 11:00 AM EDT Appointment Vascular Lab [address] [address] 05/12/2025 12:45 PM EDT Office Visit Vascular Surg [address] [address] Valentin Medina MD [address] [place] [address] Scheduled Procedures Name Priority Associated Diagnoses Date/Ti [...] Directives occurred with: Not Discussed Care Teams International Trade Teacher Relationship Specialty Start Date End Date Lele Alanis MD [address] [place] [address] PCP - General Family Medicine 11/09/18 documented as of this encounter
--- OUTSIDE RECORDS SUMMARY | 2024-09-27 13:10 | External Medical Summary | Summary of Care ---
Author Name Unknown Organization [facility] Address [address] [facility] [place] [address] Phone [phone] Care Team Providers Care Lifestyle Director Name Role Phone Lele Alanis MD Primary Care Provider Reason for Visit * Reason Onset Date Comments Appointment 09/11/2024 Encounter Details Date Type Department Care Team (Late st Contact Info) Description 09/11/2024 Telephone [facility] [address] [place] [address] Lele Alanis MD [address] [place] [address] Appointment Allergies Active Allergy Reactions Criticality Noted Date Comments Clarithromycin 02/22/2001 n/v Metformin Low 03/25/2013 Diarrhea documented as of this encounter (statuses as of 09/12/2024) Medications ASPIRIN 81 MG PO CHEW One [...] goal of less than 7.0% ([facility]) Use as directed. Use to check blood sugars up to 4 times a day DX:E11.9 1 Kit 06/16/20 19 Active Glucose Blood (ACCU-CHEK GUIDE) STRPIndications:Typ e 2 diabetes mellitus with hemoglobin A1c goal of less than 7.0% ([facility]) Use to check blood sugars up [...] goal of less than 7.0% ([facility]) Use with Lantus solostar pen up to 2 times daily e11.7 180 Each 3 11/27/19 24 Active Vitamin D3 50 MCG (1999) Oral CapsuleIndications: Vitamin D deficiency Take 1 Capsule by mouth in the morning. 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 180 Tablet 1 04/15/20 24 Active Additional Information Patient taking differently:500 mg Oral,(No frequency reported), One tablet daily, every other day, Reported on 08/29/2024 Rosuvastatin Calcium 40 MG Oral Tablet (Crestor)Indication s:Dyslipidemia, goal LDL below 70,Atherosclerosis of coronary artery bypass graft of [place] heart with angina pectoris (HCC) Take 1 Tablet by mouth in the morning. 90 Tablet 3 04/15/20 24 Active Additional Information Patient taking differently:40 mg OralEVERY OTHER DAY, Reported on 08/29/2024 Ezetimibe 10 MG Oral Tablet (Zetia)Indications: Dyslipidemia, goal LDL below 70,Atherosclerosis of coronary artery bypass graft of [place] heart with angina pectoris ([facility]) Take 1 Tablet by mouth in the morning. 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 90 Tablet 3 08/29/20 24 Active Nitroglycerin 0.4 MG Sublingual Tablet Sublingual (Nitrostat)Indicati ons:Atherosclerosis of [place] coronary artery of [place] heart without angina pectoris Place 1 Tablet under the tongue every 5 minutes as needed for Pain, Chest. up to 3 doses in 15 minutes 25 Tablet 08/29/20 24 Active documented as of this encounter (statuses as of 09/12/2024) Active Problems Problem Noted Date Diagnosed Date [...] INFARCT 04/22/2009 Overview (04/22/2009): Modified by [facility] [place] Protocol #5. 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 Study Titile: Genomic Markers for Patients with Cardiovascular Disease Project #[id number] PI: Kimmie Dubon MD Please call [phone] with study related questions Benign neoplasm of colon 09/06/2007 Overview (10/07/2007): adenomatous polyp--repeat 5 years EXAMINATION OF PARTICIPANT IN CLINICAL TRIAL 01/14/2010 Overview (01/14/2010): Renamed Per Clinical Trials Billing Project. [employer] Study # A clinical trial comparing treatment with cangrelor (in combination with usual care) to usual care, in subjects who require percutaneous coronary intervention Housing Installer: Ephraim Bingham MD [phone] [employer] Clinical Trial*[id number] 08/22/2006 02/15/2016 Overview (01/14/2010): Renamed Per Clinical Trials Billing Project. [employer] Study #[id number] A clinical trial comparing treatment with cangrelor (in combination with usual care) to usual care, in subjects who require percutaneous coronary intervention Housing Installer: Ephraim Bingham MD [phone] ADVANCE DIRECTIVE INFORMATION 04/25/2005 08/04/2024 Overview (04/25/2005): Yes, Patient instructed to provide copy of advance directive for provider to review and to be scanned into Electronic Medical Record Mixed dyslipidemia 05/30/2002 9 Overview (09/15/2009): Per Lipid Taxonomy. Morbid obesity, BMI not known 05/30/2002 12/28/2009 Overview (12/28/2009): Per Obesity Taxonomy F/u of anterior myocardial infarction 05/30/2002 04/22/2009 Overview (04/22/2009): Modified by [place] Protocol #5. Dyslipidemia, goal to be determined 05/15/2002 08/25/2009 Overview (08/25/2009): Per Lipid Taxonomy DM type 2, not at goal 02/17/200207/15 Overview (07/15/2009): Modified per Diabetes protocol #14. Type 2 diabetes mellitus wit h hemoglobin A1c goal of less than 7.0% 11/15/2007 Overview (01/25/2016): ICD-10 update of inactive term documented as of this encounter (statuses as of 09/12/2024) Immunizations Name Administration Dates Next Due COVID-19 [...] of Assessment Author No 02/11/2019 1:19 AM EDT Phoebe Bansal RN * Are you blind or do you have serious difficulty seeing, even when wearing glasses? Answer Date of Assessment Author No 02/11/2019 1:19 AM JORDANT Phoebe Bansal RN * Do you have serious difficulty walking or climbing stairs? (5 years old or older) Answer Date of Assessment Author No 02/11/2019 1:19 AM JORDANT Phoebe Bansal RN * Do you have difficulty dressing [...] of Assessment Author No 02/11/2019 1:19 AM JORDANT Phoebe Bansal RN documented as of this encounter Mental Status * Because of a physical, mental, or emotional condition, do you have serious difficulty concentrating, remembering, or making decisions? (5 years old or older) Answer Entry Date Author No 02/11/2019 1:19 AM Phoebe Leon RN documented in this encounter Miscellaneous Notes * Telephone Encounter - Elin Hayden OSA - 09/12/2024 9:34 AM EST Patient already scheduled. 09/12/2024 * Telephone Encounter - Harleen Garner OSA - 09/11/2024 10:51 AM EST Patient calling in to check on the status of previous message. Patient Called within 48 hour timeframe. Reminded patient of 48 hour turn-around time. Patient states that the physical is a physical and TB test that he needs for work. Patient would like to have an appointment on 09/11/24. * Telephone Encounter - Lucy Gonzalez OSA - 09/11/2024 9:56 AM EST No Appointments Available Patient declined appointments?: Yes What Visit Type is needed? Complete Physical If Acute Visit Type is needed, were surrounding clinics offered to patient (Yes/No)? N/A Was patient offered appointments with other available providers (Yes/No)? N/A See Call Details? (Yes or No): No, offered appt for next week but wants to be seen this week. Says he has paperwork that needs to be filled out. Also mentioned something about having man toe. documented in this encounter Plan of Treatment Upcoming Encounters Date Type Department Care Team (Late st Contact Info) Description 09/12/2024 10:00 AM EST Office Visit [facility] [address] [place] [address] Valentin Poe III, MD [address] [place] [address] Arrived 09/16/2024 8:20 AM EST Office Visit Wound Care, [facility] [address] [place] [address] Maria E Thibodeaux DPM [address] [place] [address] 09/23/2024 8:20 AM EST Office Visit [facility] [place] [address] [place] [address] Lele Alanis MD [address] [place] [address] 09/25/2024 8:15 AM EST Cardiac Studies Cardiac Studies, [facility] [address] [place] [address] 12/29/2024 8:00 AM EDT Office Visit Cardiology, [facility] [address] [place] [address] Courtney Fonseca, LEEANNE [address] [place] [address] 05/12/2025 10:30 AM EDT Appointment Vascular [facility] [place] [address] [place] [address] 05/12/2025 11:00 AM EDT Appointment [facility] [place] [address] [place] [address] 05/12/2025 12:45 PM EDT Office Visit Vascular Surg [place] [address] [place] [address] Valentin Medina MD [address] [place] [address] Scheduled Procedures Name Priority Associated Diagnoses Date/Ti [...] Directives occurred with: Not Discussed Care Teams Lifestyle Director Relationship Specialty Start Date End Date Lele Alanis MD [address] [place] [address] PCP - General Family Medicine 11/09/18 documented as of this encounter
--- OUTSIDE RECORDS SUMMARY | 2024-09-27 13:10 | External Medical Summary | Summary of Care ---
Author Name Unknown Organization [facility] Address [address] [facility] [place] [address] Phone [phone] Care Team Providers Care Dispute Specialist Name Role Phone Lele lAanis MD Primary Care Provider [phone] Reason for Visit * Reason Comments Outpatient Testing Encounter Details Date Type Department Care Team (Late st Contact Info) Description 09/04/2024 11:40 AM EST Laboratory Laboratory, [facility] [address] [place] [id number] [facility] [address] [place] [address] Cerebellar stroke ([facility]); Type 2 diabetes mellitus with hemoglobin A1c goal of less than 7.0% ([facility]); DYSLIPIDEMIA, GOAL LDL BELOW 70; Atherosclerosis of cabaz[place] coronary artery of cabaz[place] heart without angina pectoris; Type 2 diabetes mellitus with diabetic neuropathy, without long-term current use of insulin ([facility]) Allergies Active Allergy Reactions Criticality Noted Date Comments Clarithromycin 02/22/2001 n/v Metformin Low 03/25/2013 Diarrhea documented as of this encounter (statuses as of 09/04/2024) Medications ASPIRIN 81 MG PO CHEW One pill by mouth once a day with food 100 5 01/20/20 08 Active ONETOUCH DELICA PLUS LANCETS MISC Use to test blood sugar up to 4 times daily dx e11.9 100 Each 5 06/13/20 19 Active Blood Glucose Monitoring Suppl (ACCU-CHEK GUIDE DE) w/Device KITIndications:Type 2 diabetes mellitus with hemoglobin A1c goal of less than 7.0% ([facility]) Use as directed. Use to check blood sugars up to 4 times a day DX:E11.9 1 Kit 06/16/20 19 Active Glucose Blood (ACCU-CHEK GUIDE) STRPIndications:Typ e 2 diabetes mellitus with hemoglobin A1c goal of less than 7.0% ([facility]) Use to check blood sugars [...] hemoglobin A1c goal of less than 7.0% ([facility]) Use with Lantus solostar pen up to 2 times daily e11.7 180 Each 3 11/27/19 24 Active Vitamin D3 50 MCG (1999 [place]) Oral CapsuleIndications: Vitamin D deficiency Take 1 Capsule by mouth in the morning. 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 180 Tablet 1 04/15/20 24 Active Additional Information Patient taking differently:500 mg Oral,(No frequency reported), One tablet daily, every other day, Reported on 08/29/2024 Rosuvastatin Calcium 40 MG Oral Tablet (Crestor)Indication s:Dyslipidemia, goal LDL below 70,Atherosclerosis of coronary artery bypass graft of [place] heart with angina pectoris ([facility]) Take 1 Tablet by mouth in the morning. 90 Tablet 3 04/15/20 24 Active Additional Information Patient taking differently:40 mg OralEVERY OTHER DAY, Reported on 08/29/2024 Ezetimibe 10 MG Oral Tablet (Zetia)Indications: Dyslipidemia, goal LDL below 70,Atherosclerosis of coronary artery bypass graft of [place] heart with angina pectoris ([facility]) Take 1 Tablet by mouth in the morning. 90 Tablet 3 04/15/20 24 Active Additional Information Patient taking differently:10 mg OralEVERY OTHER DAY, Reported on 08/29/2024 Gabapentin 300 MG Oral Capsule (Neurontin)Indicati ons:Type 2 diabetes mellitus with diabetic neuropathy, without long-term current use of insulin ([facility]) Take 1 Capsule by mouth [...] hemoglobin A1c goal of less than 7.0% ([facility]) 44 units twice daily or [...] goal LDL below 70,Coronary artery disease of [place] artery of [place] heart with stable angina pectoris ([facility]),HTN, goal below 130/80,NSVT (nonsustained ventricular tachycardia) ([facility]) Take 1 Tablet by mouth in the morning. 90 Tablet 3 08/29/20 24 Active Nitroglycerin 0.4 MG Sublingual Tablet Sublingual (Nitrostat)Indicati ons:Atherosclerosis of [place] coronary artery of [place] heart without angina pectoris Place 1 Tablet under the tongue every 5 minutes as needed for Pain, Chest. up to 3 doses in 15 minutes 25 Tablet 11 08/29/20 24 Active documented as of this encounter (statuses as of 09/04/2024) Active Problems Problem Noted Date Diagnosed Date [...] INFARCT 04/22/2009 Overview (04/22/2009): Modified by [facility] [place] Protocol #5. 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 Study Titile: Genomic Markers for Patients with Cardiovascular Disease Project #[id number] PI: Kimmie Dubon MD Please call [phone] with study related questions Benign neoplasm of colon 09/06/2007 Overview (10/07/2007): adenomatous polyp--repeat 5 years EXAMINATION OF PARTICIPANT IN CLINICAL TRIAL 01/14/2010 Overview (01/14/2010): Renamed Per Clinical Trials Billing Project. [employer] Study #[id number] A clinical trial comparing treatment with cangrelor (in combination with usual care) to usual care, in subjects who require percutaneous coronary intervention Utility Bag Assembler: Ephraim Bingham MD [phone] [employer] Clinical Trial*[id number] 08/22/2006 02/15/2016 Overview (01/14/2010): Renamed Per Clinical Trials Billing Project. [facility] Study #[id number] A clinical trial comparing treatment with cangrelor (in combination with usual care) to usual care, in subjects who require percutaneous coronary intervention Utility Bag Assembler: Ephraim Bingham MD [phone] ADVANCE DIRECTIVE INFORMATION 04/25/2005 08/04/2024 Overview (04/25/2005): Yes, Patient instructed to provide copy of advance directive for provider to review and to be scanned into Electronic Medical Record Mixed dyslipidemia 05/30/2002 9 Overview (09/15/2009): Per Lipid Taxonomy. Morbid obesity, BMI not known 05/30/2002 12/28/2009 Overview (12/28/2009): Per Obesity Taxonomy F/u of anterior myocardial infarction 05/30/2002 04/22/2009 Overview (04/22/2009): Modified by [place] Protocol #5. Dyslipidemia, goal to be determined 05/15/2002 08/25/2009 Overview (08/25/2009): Per Lipid Taxonomy DM type 2, not at goal 02/17/200207/15 Overview (07/15/2009): Modified per Diabetes protocol #14. Type 2 diabetes mellitus wit h hemoglobin A1c goal of less than 7.0% 11/15/2007 Overview (01/25/2016): ICD-10 update of inactive term documented as of this encounter (statuses as of 09/04/2024) Immunizations Name Administration Dates Next Due COVID-19 [...] Phoebe Leon RN documented in this encounter Plan of Treatment Upcoming Encounters Date Type Department Care Team (Late st Contact Info) Description 09/04/2024 1:20 PM EST Office Visit [facility], [facility] [address] [facility] [place] [address] Maria E [facility]odeaux DPM [address] [facility] [address] 09/23/2024 8:20 AM EST Office Visit Family [facility], [place] [facility] [address] [facility] [address] [place] [phone] Lele Alanis MD [address] [facility] [place] [address] 09/25/2024 8:15 AM EST Cardiac Studies Cardiac Studies, [facility] [address] [facility] [place] [address] 12/29/2024 8:00 AM EDT Office Visit Cardiology, [address] [address] Courtney Fonseca, [facility] [address] [place] [address] 05/12/2025 10:30 AM EDT Appointment Vascular Lab [address] [address] 05/12/2025 11:00 AM EDT Appointment Vascular Lab [address] [address] 05/12/2025 12:45 PM EDT Office Visit Vascular Surg [address] [address] Valentin Medina MD [address] [place] [address] Pending Results Name Type Priority Associated Diagnoses Date /Time HEMOGLOBIN A1C Lab Routine Type 2 diabetes mellitus with hemoglobin A1c goal of less than 7.0% ([facility]) 09/04/2024 8:22 AM EST COMPREHENSIVE METABOLIC PANEL Lab Routine Type 2 diabetes mellitus with hemoglobin A1c goal of less than 7.0% ([facility]) DYSLIPIDEMIA, GOAL LDL BELOW 70 Atherosclerosis of [place]az[place] coronary artery of cabaz[place] heart without angina pectoris 09/04/2024 8:22 AM EST LIPID PANEL WITH DIRECT LDL IF TG IS HIGH Lab Routine DYSLIPIDEMIA, GOAL LDL BELOW 70 09/04/2024 8:22 AM EST ALBUMIN / CREATININE RATIO, URINE Lab Routine Type 2 diabetes mellitus with diabetic neuropathy, without long-term current use of insulin (HCC) 09/04/2024 8:22 AM EST Scheduled Procedures Name Priority Associated Diagnoses Date/Ti [...] as of this encounter Visit Diagnoses Diagnosis Cerebellar stroke (HCC) Type 2 diabetes mellitus with hemoglobin A1c goal of less than 7.0% (HCC) DYSLIPIDEMIA, GOAL LDL BELOW 70 Other and unspecified hyperlipidemia Atherosclerosis of [place] coronary artery of [place] heart without angina pectoris Type 2 diabetes mellitus with diabetic neuropathy, [...] Directives occurred with: Not Discussed Care Teams Dispute Specialist Relationship Specialty Start Date End Date Lele Alanis MD [address] [place] [address] PCP - General Family Medicine 11/09/18 documented as of this encounter
--- OUTSIDE RECORDS SUMMARY | 2024-09-27 13:10 | External Medical Summary ---
Author Name Unknown Address Unknown Organization [id number]:[facility] [place] [address] [place] [address] Laboratory Report Ordering Provider Test Date Status ROSALVA HARRINGTON 09/04/2024 08:22:37 Final Observation Date Value Abnormality Reference (Units ) Status BUN 09/04/2024 08:22:37 10 6-20 (mg/dL) Final Creatinine 09/04/2024 08:22:37 0.9 0.6-1.2 (mg/dL) Final Glomerular filtration rate/1.73 sq M.predicted [Volume Rate/Area] in Serum, Plasma or Blood by Creatinine-based formula (CKD-EPI) 09/04/2024 08:22:37 >90 >=60 (mL/min) Final eGFR is calculated based on the CKD-EPI 2020 equation. Sodium 09/04/2024 08:22:37 142 135-146 (m mol/L) Final Potassium 09/04/2024 08:22:37 4.2 3.5-5.1 (m mol/L) Final Cl 09/04/2024 08:22:37 106 98-107 (mm ol/L) Final CO2 09/04/2024 08:22:37 26 22-32 (mmo l/L) Final Anion gap 09/04/2024 08:22:37 10 7-15 (mmol /L) Final Glucose 09/04/2024 08:22:37 177 Above high normal 70 -120 (mg/dL) Final Albumin 09/04/2024 08:22:37 4.3 3.8-5.0 (g /dL) Final AST (Aspartate aminotransferase) 09/04/2024 08:22:37 15 10-50 (U/L) Fin al Alk Phos 09/04/2024 08:22:37 85 35-130 (U/ L) Final Bilirubin, Total 09/04/2024 08:22:37 0.6 <=1 .2 (mg/dL) Final Calcium 09/04/2024 08:22:37 9.2 8.4-10.2 ( mg/dL) Final Protein 09/04/2024 08:22:37 6.7 6.0-8.3 (g /dL) Final ALT (Alanine aminotransferase) 09/04/2024 08:22:37 17 10-50 (U/L) Raphael greco Performing Location [facility] [place] [facility] [address] [place] [facility] [address]
--- OUTSIDE RECORDS SUMMARY | 2024-09-27 13:10 | External Medical Summary ---
Author Name Unknown Address Unknown Organization [id number][place] [place] [address] [facility] [place] [address] Laboratory Report Ordering Provider Test Date Status ROSALVA HARRINGTON 09/04/2024 08:22:37 Final Observation Date Value Abnormality Reference (Units ) Status Triglyceride 09/04/2024 08:22:37 257 Above high normal <=174 (mg/dL) Final Triglyceride Reference Range s (mg/dL):
<150 Acceptable
150-174 Borderline high
175-499 High
>=500 Very high Cholesterol 09/04/2024 08:22:37 193 <200 (mg /dL) Final Total Cholesterol Reference Ranges (mg/dL):
<200 Desirable
200-239 Borderline high
>=240 High HDL 09/04/2024 08:22:37 41 >39 (mg/dL ) Final HDL Cholesterol Reference Ra nges (mg/dL):
>=60 High (Desirable)
<50 Low (Undesirable) For Females
<40 Low (Undesirable) For Males NON-HDL CHOLESTEROL 09/04/2024 08:22:37 152 <=159 (mg/dL) Final Non-HDL Cholesterol Referenc e Range (mg/dL):
<100 Target level for high risk ASCVD patient
<130 Optimal for general population
130-159 Near optimal for general population
160-189 Borderline High
190-219 High
>=220 Very High LDL, (calculated) 09/04/2024 08:22:37 101 <= 129 (mg/dL) Final LDL Cholesterol Reference Ra nges (mg/dL):
<70 Target level for high risk ASCVD patient
<100 Optimal for general population
100-129 Near optimal for general population
130-159 Borderline high
160-189 High
>=190 Very high Performing Location [facility] [place] [address] [place] [address]
--- OUTSIDE RECORDS SUMMARY | 2024-09-27 13:10 | External Medical Summary | Summary of Care ---
Author Name Unknown Organization [facility] Address [address] [place] [address] Phone [phone] Care Team Providers Care Study Coordinator Name Role Phone Lele Alanis MD Primary Care Provider [phone] Reason for Visit * Reason Comments Follow Up Right foot plantar - -- left * Evaluate & Treat - Unlimited Visits (Within 10 days (routine)) - Authorized Specialty Diagnoses / Procedures Referred By Contac t Referred To Contact Wound Care Diagnoses Unspecified open wound, unspecified lower leg, initial encounter Lele Alanis MD [address] [place] [address] Phone: tel: fax: Referral ID Status Reason Start Date Expiration Date Visits Requested Visits Authorized [id number] Authorized Specialty Services Required 02/06/2024 [id number] Encounter Details Date Type Department Care Team (Late st Contact Info) Description 09/04/2024 1:20 PM EST Office Visit Wound Care, [facility] [address] [place] [address] Maria E Thibodeaux DPM [address], [place] [id number] Diabetic ulcer of toe of right foot associated with type 2 diabetes mellitus, with fat layer exposed (HCC)*; Type 2 diabetes mellitus with diabetic neuropathy, without long-term current use of insulin ([facility]) Allergies Active Allergy Reactions Criticality Noted Date Comments Clarithromycin 02/22/2001 n/v Metformin Low 03/25/2013 Diarrhea documented as of this encounter (statuses as of 09/04/2024) Medications ASPIRIN 81 MG PO CHEW One pill by mouth once a day with food 100 5 01/20/20 08 Active ONETOUCH DELICA PLUS LANCETS [facility] Use to test blood sugar up to 4 times daily dx e11.9 100 Each 5 06/13/20 19 Active Blood Glucose Monitoring Suppl (ACCU-CHEK GUIDE [place]) w/Device KITIndications:Type 2 diabetes mellitus with hemoglobin A1c goal of less than 7.0% ([facility]) Use as directed. Use to check blood sugars up to 4 times a day DX:E11.9 1 Kit 06/16/20 19 Active Glucose Blood (ACCU-CHEK GUIDE) STRPIndications:Typ e 2 diabetes mellitus with hemoglobin A1c goal of less than 7.0% ([facility]) Use to check blood sugars up to [...] A1c goal of less than 7.0% ([facility]) Use with Lantus solostar pen up to 2 times daily e11.7 180 Each 3 11/27/19 24 Active Vitamin D3 50 MCG (1999 [place]) Oral CapsuleIndications: Vitamin D deficiency Take 1 Capsule by mouth in the morning. 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 180 Tablet 1 04/15/20 24 Active Additional Information Patient taking differently:500 mg Oral,(No frequency reported), One tablet daily, every other day, Reported on 08/29/2024 Rosuvastatin Calcium 40 MG Oral Tablet (Crestor)Indication s:Dyslipidemia, goal LDL below 70,Atherosclerosis of coronary artery bypass graft of [place] heart with angina pectoris (HCC) Take 1 Tablet by mouth in the morning. 90 Tablet 3 04/15/20 24 Active Additional Information Patient taking differently:40 mg OralEVERY OTHER DAY, Reported on 08/29/2024 Ezetimibe 10 MG Oral Tablet (Zetia)Indications: Dyslipidemia, goal LDL below 70,Atherosclerosis of coronary artery bypass graft of [place] heart with angina pectoris (HCC) Take 1 Tablet by mouth in the morning. 90 Tablet 3 04/15/20 24 Active Additional Information Patient taking differently:10 mg OralEVERY OTHER DAY, Reported on 08/29/2024 Gabapentin 300 MG Oral Capsule (Neurontin)Indicati ons:Type 2 diabetes mellitus with diabetic neuropathy, without long-term current use of insulin ([facility]) Take 1 Capsule by mouth in the [...] A1c goal of less than 7.0% ([facility]) 44 units twice daily or as directed.E11.9 [...] LDL below 70,Coronary artery disease of [place] artery of [place] heart with stable angina pectoris (HCC),HTN, goal below 130/80,NSVT (nonsustained ventricular tachycardia) (HCC) Take 1 Tablet by mouth in the morning. 90 Tablet 3 08/29/20 24 Active Nitroglycerin 0.4 MG Sublingual Tablet Sublingual (Nitrostat)Indicati ons:Atherosclerosis of [place] coronary artery of [place] heart without angina pectoris Place 1 Tablet [...] INFARCT 04/22/2009 Overview (04/22/2009): Modified by Acute [place] Protocol #5. 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 Study Titile: Genomic Markers for Patients with Cardiovascular Disease Project #[id number] PI: Kimmie Dubon MD Please call [phone] with study related questions Benign neoplasm of colon 09/06/2007 Overview (10/07/2007): adenomatous polyp--repeat 5 years EXAMINATION OF PARTICIPANT IN CLINICAL TRIAL 6 01/14/2010 Overview (01/14/2010): Renamed Per Clinical Trials Billing Project. [employer] Study #[id number] A clinical trial comparing treatment with cangrelor (in combination with usual care) to usual care, in subjects who require percutaneous coronary intervention Alteration Hand: Ephraim Bingham MD [phone] [employer] Clinical Trial*[id number] 08/22/2006 02/15/2016 Overview (01/14/2010): Renamed Per Clinical Trials Billing Project. [employer] Study # A clinical trial comparing treatment with cangrelor (in combination with usual care) to usual care, in subjects who require percutaneous coronary intervention Alteration Hand: Ephraim Bingham MD [phone] ADVANCE DIRECTIVE INFORMATION 04/25/2005 08/04/2024 Overview (04/25/2005): Yes, Patient instructed to provide copy of advance directive for provider to review and to be scanned into Electronic Medical Record Mixed dyslipidemia 05/30/2002 9 Overview (09/15/2009): Per Lipid Taxonomy. Morbid obesity, BMI not known 05/30/2002 12/28/2009 Overview (12/28/2009): Per Obesity Taxonomy F/u of anterior myocardial infarction 05/30/2002 04/22/2009 Overview (04/22/2009): Modified by Acute [place] Protocol #5. Dyslipidemia, goal to be determined [...] from the original note were not included. [facility] Wound Care Follow-up Note [facility] Name: Rm Rothman : 1950 Date: 09/04/2024 [...] wall DM type 2, not at goal ([facility]) F/u of anterior myocardial infarction non Q wave mi in Impotence of organic origin 03-13-02 Mixed dyslipidemia Morbid obesity, BMI not known ([facility]) Sleep apnea 11/15/2007 Type 2 diabetes mellitus with hemoglobin A1c goal of less than 7.0% ([facility]) 07/15/2009 Modified per Diabetes protocol #14. ICD-10 [...] 2 diabetes mellitus, with fat layer exposed ([facility]) E11.621 L97.512 2. Type 2 diabetes mellitus [...] Wound Care, [facility] [address] [place] [address] Maria E Thibodeaux DPM [address] [place] [address] 09/23/2024 8:20 AM EST Office Visit [facility] [address] [place] [address] Lele Alanis MD [address] [place] [address] 09/25/2024 8:15 AM EST Cardiac Studies Cardiac Studies, [facility] [address] [place] [address] 12/29/2024 8:00 AM EDT Office Visit Cardiology, [facility] [address] [place] [address] Courtney oFnseca CRNP [address] [place] [address] 05/12/2025 10:30 AM EDT Appointment Vascular Lab [address] [address] 05/12/2025 11:00 AM EDT Appointment Vascular Lab [address] [address] 05/12/2025 12:45 PM EDT Office Visit Vascular Surg [address] [address] Valentin Medina MD [address] [place] [address] Scheduled Procedures Name Priority Associated Diagnoses Date/Ti [...] Directives occurred with: Not Discussed Care Teams Study Coordinator Relationship Specialty Start Date End Date Lele Alanis MD [address] [place] [address] PCP - General Family Medicine 11/09/18 documented as of this encounter
--- OUTSIDE RECORDS SUMMARY | 2024-09-27 13:11 | External Medical Summary | Summary of Care ---
Author Name Unknown Organization [facility] Address [address] [facility] [place] [address] Phone [phone] Care Team Providers Care Remote Sensing Advisor Name Role Phone Lele Alanis MD Primary Care Provider Reason for Visit * Reason Onset Date Comments Call Back 08/20/2024 Patient requesti ng call back from primary or nurse concerning dizziness last 2 days, medication is not working Encounter Details Date Type Department Care Team (Late st Contact Info) Description 08/20/2024 Telephone [facility] [address] [place] [address] Lele Alanis MD [address] [place] [address] Call Back (Patient requesting call back fr... Allergies Active Allergy Reactions Criticality Noted Date Comments Clarithromycin 02/22/2001 n/v Metformin Low 03/25/2013 Diarrhea documented as of this encounter (statuses as of 08/22/2024) Medications ASPIRIN 81 MG PO CHEW One pill by mouth once a day with food 100 5 01/20/20 08 Active ONETOUCH DELICA PLUS LANCETS MISC Use to test blood sugar up to 4 times daily dx e11.9 100 Each 5 06/13/20 19 Active Blood Glucose Monitoring Suppl (ACCU-CHEK GUIDE [place]) w/Device KITIndications:Type 2 diabetes mellitus with hemoglobin A1c goal of less than 7.0% ([facility]) Use as directed. Use to [...] as needed for Pain. 30 Tab 12/12/19 Active Additional Information Patient not taking.Reported on 08/13/2024 BD Pen Needle Short U/F 31G X 8 MM (Insulin Pen Needle)Indications: Type 2 diabetes mellitus with hemoglobin A1c goal of less than 7.0% (HCC) Use with Lantus solostar pen up to 2 times daily e11.7 180 Each 3 11/27/19 24 Active Vitamin D3 50 MCG (1999) Oral CapsuleIndications: Vitamin D deficiency Take 1 Capsule by mouth in the morning. 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 90 Tablet 1 04/15/20 24 Active Isosorbide Mononitrate ER 60 MG Oral Tablet Extended Release 24 Hour (Imdur)Indications: Atherosclerosis of coronary artery bypass graft of [place] heart with angina pectoris (HCC) Take 1 Tablet by mouth in the morning. 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 180 Tablet 1 04/15/20 24 Active Rosuvastatin Calcium 40 MG Oral Tablet (Crestor)Indication s:Dyslipidemia, goal LDL below 70,Atherosclerosis of coronary artery bypass graft of [place] heart with angina pectoris (HCC) Take 1 Tablet by mouth in the morning. 90 Tablet 3 04/15/20 24 Active Additional Information Patient not taking.Reported on 08/13/2024 Ezetimibe 10 MG Oral Tablet (Zetia)Indications: Dyslipidemia, goal LDL below 70,Atherosclerosis of coronary artery bypass graft of [place] heart with angina pectoris ([facility]) Take 1 Tablet by mouth in the morning. 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 90 Tablet 3 04/15/20 24 Active Additional Information Patient not taking.Reported on 08/13/2024 Gabapentin 300 MG Oral Capsule (Neurontin)Indicati ons:Type 2 diabetes mellitus with diabetic neuropathy, without long-term current use of insulin ([facility]) Take 1 Capsule by mouth [...] hemoglobin A1c goal of less than 7.0% ([facility]) 44 units twice daily or as directed.E11.9 75 mL 3 04/17/20 24 Active hydrocortisone 1%/clotrimazole 1% 1:1 (Clotrimazole) cream Apply topically to affected area 2 times a day. 180 g 1 08/05/20 24 Active Nitroglycerin 0.4 MG Sublingual Tablet Sublingual (Nitrostat)Indicati ons:Atherosclerosis of [place] coronary artery of [place] heart without angina pectoris Place 1 Tablet under the tongue every 5 minutes as needed for Pain, Chest. up to 3 doses in 15 minutes 150 Tablet 1 08/13/20 24 Active oxyCODONE HCl 5 MG Oral Tablet (Oxy IR)Indications:Prim tanya localized osteoarthrosis of shoulder region, unspecified laterality Take 1 Tablet by mouth every 6 hours as needed for Pain, Severe. 10 Tablet 08/22/20 24 Active oxyCODONE HCl 5 MG Oral Tablet (Oxy IR) Take 1 Tablet by mouth every 6 hours as needed for Pain, Severe. 8 Tablet 03/27/20 24 024 Discontin ued(Refil l) documented as of this encounter (statuses as of 08/22/2024) Active Problems Problem Noted Date Diagnosed Date Carotid stenosis, non-symptomatic, bilateral 06/2024 PVD (peripheral [...] INFARCT 04/22/2009 Overview (04/22/2009): Modified by Acute [place] Protocol #5. 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 Study Titile: Genomic Markers for Patients with Cardiovascular Disease Project #[id number] PI: Kimmie Dubon MD Please call [phone] with study related questions Benign neoplasm of colon 09/06/2007 Overview (10/07/2007): adenomatous polyp--repeat 5 years EXAMINATION OF PARTICIPANT IN CLINICAL TRIAL 6 01/14/2010 Overview (01/14/2010): Renamed Per Clinical Trials Billing Project. [employer] Study #[id number] A clinical trial comparing treatment with cangrelor (in combination with usual care) to usual care, in subjects who require percutaneous coronary intervention [employer] Operator: Ephraim Bingham MD [phone] [employer] Clinical Trial*[id number] 08/22/2006 02/15/2016 Overview (01/14/2010): Renamed Per Clinical Trials Billing Project. [employer] Study #[id number] A clinical trial comparing treatment with cangrelor (in combination with usual care) to usual care, in subjects who require percutaneous coronary intervention [place] Operator: Ephraim Bingham MD [phone] ADVANCE DIRECTIVE INFORMATION 04/25/2005 08/04/2024 Overview (04/25/2005): Yes, Patient instructed to provide copy of advance directive for provider to review and to be scanned into Electronic Medical Record Mixed dyslipidemia 05/30/2002 9 Overview (09/15/2009): Per Lipid Taxonomy. Morbid obesity, BMI not known 05/30/2002 12/28/2009 Overview (12/28/2009): Per Obesity Taxonomy F/u of anterior myocardial infarction 05/30/2002 04/22/2009 Overview (04/22/2009): Modified by Acute [place] Protocol #5. Dyslipidemia, goal to be determined 05/15/2002 08/25/2009 Overview (08/25/2009): Per Lipid Taxonomy DM type 2, not at goal 02/17/200207/15 Overview (07/15/2009): Modified per Diabetes protocol #14. Type 2 diabetes mellitus wit h hemoglobin A1c goal of less than 7.0% 11/15/2007 Overview (01/25/2016): ICD-10 update of inactive term documented as of this encounter (statuses as of 08/22/2024) Immunizations Name Administration Dates Next Due COVID-19 [...] Entry Date Author No 02/11/2019 1:19 AM JORDANT Phoebe Bansal RN documented in this encounter Miscellaneous Notes * Telephone Encounter - Shaji Diazjoel Graves LPN - 08/21/2024 3:43 PM EST Pt stated he stopped taking one of his medication, but couldn't tell me which one because it was making him dizzy. He also said to tell the provider he is out of his pain medication. Did you pend patient's preferred pharmacy and medication before forwarding?yes Pharmacy: [id number] [address] [facility] Pending Prescriptions: Disp Refills oxyCODONE HCl 5 MG Oral Tablet (Oxy IR) 8 Tabl*0 Sig: Take 1 Tablet by mouth every 6 hours as needed for Pain, Severe. Last Visit: 08/13/2024 (in office), Visit date not found (telemedicine) Next Visit: Visit date not found If no future appointments scheduled, and last appointment is greater than a year ago, please schedule patient for a follow-up appointment Last date the medication was ordered: 03/27/2024 Is this request for a controlled substance?Yes, What was the last refill date 03/27/2024 w/ quantity 8 and dosage 5 mg and Urine Drug Screen Not completed Urine Drug Screen: Results for orders placed or performed in visit on 03/07/23 TOXICOLOGY, URINE SCREEN W/ CONFIRMATION Result Value Amphetamines Screen, U Negative Benzodiazepines Screen, U Negative Cannabinoids Screen, U Negative Cocaine Metabolite Screen, U Negative Fentanyl Screen, U Negative Hydrocodone Screen, U Negative Methadone Metabolite Screen, U Negative Morphine/Codeine Screen, U Negative Oxycodone Screen, U Negative Narrative Cutoff Concentrations: Drug Level Amphetamines 500 ng/mL Benzodiazepines 100 ng/mL Cannabinoids 50 ng/mL Cocaine Metabolite 150 ng/mL Fentanyl 1 ng/mL Hydrocodone / Hydromorphone 300 ng/mL Methadone Metabolite 100 ng/mL Morphine / Codeine 300 ng/mL Oxycodone / Oxymorphone 100 ng/mL Screening results are presumptive and can only be used for medical purposes. Positive screening results are reflexed to confirmatory testing. *Note: Due to a large number of results and/or encounters for the requested time period, some results have not been displayed. A complete set of results can be found in Results Review. Patient Phone Numbers Labs: Lab Results Component Value Date/Time CREAT 1.0 02/28/2024 04:26 PM CREAT 0.9 04/07/2020 09:10 AM POTASSIUM 4.0 02/28/2024 04:26 PM POTASSIUM 4.5 04/07/2020 09:10 AM POTASSIUM 4.2 12/11/1996 04:00 PM TSH 1.84 04/13/2016 10:35 AM TSH 3.03 12/11/1996 04:00 PM LDL 82 02/13/2024 09:16 AM LDL 88 03/30/2022 09:02 AM LDL 08/08/2019 03:50 PM Uninterpretable, recommend direct LDL cholesterol testing. LDL 132. (H) 12/11/1996 04:00 PM ALT 20 02/13/2024 09:16 AM ALT 17 02/10/2019 09:48 PM HGBA1C 11.0 (H) 02/13/2024 09:16 AM HGBA1C 8.8 (H) 07/31/2020 09:13 AM * Telephone Encounter - Lele Alanis MD - 08/20/2024 8:34 PM EST Notify: I do not have anything more to offer. I do think he should try to stay on the medications as I outlined at his office visit. He is going to see fluctuations with the dizziness. Good days and bad days. * Telephone Encounter - Farhana Dang OSA - 08/20/2024 1:29 PM EST Patient requesting call back from primary or nurse concerning dizziness last 2 days, medication is not working. Please assist. documented in this encounter Plan of Treatment Upcoming Encounters Date Type Department Care Team (Late st Contact Info) Description 08/29/2024 8:30 AM EST Office Visit Cardiology, [facility] [address] [facility] [place] [address] Agata Saenz PA-C [address] [place] [address] 09/04/2024 10:00 AM EST Office Visit Wound Care, [facility] [address] [place] [address] Maria E Thibodeaux DPM [address] [place] [address] 09/23/2024 8:20 AM EST Office Visit [facility] [address] [place] [address] Lele Alanis MD [address] [place] [address] 05/12/2025 10:30 AM EDT Appointment Vascular Lab [address] [address] 05/12/2025 11:00 AM EDT Appointment Vascular Lab [facility] [address] [place] [address] 05/12/2025 12:45 PM EDT Office Visit Vascular Surg [facility] [address] [place] [address] Valentin Medina MD [address] [place] [address] Scheduled Procedures Name Priority Associated Diagnoses Date/Ti me COLONOSCOPY FLEXIBLE PROXIMAL DIAGNOSTIC Recall History of colon polyps Health Maintenance Due Date Last Done Comments Cologuard 1997 Fecal Occult Blood Test 1997 Sigmoidoscopy 1997 Adult Wellness Visit 2018 Colonoscopy 05/16/2021 05/16/2016, 05/01, 09/06/2007 COVID-19 Vaccine (3 - season) 2024 10/17/2021, 09/19/2021 Influenza Vaccine (FLU [...] as of this encounter Visit Diagnoses Diagnosis Primary localized osteoarthrosis of shoulder region, unspecified laterality- Primary documented in this encounter Advance Directives * [...] Directives occurred with: Not Discussed Care Teams Remote Sensing Advisor Relationship Specialty Start Date End Date Lele Alanis MD [address] [place] [address] PCP - General Family Medicine 11/09/18 documented as of this encounter
--- OUTSIDE RECORDS SUMMARY | 2024-09-27 13:11 | External Medical Summary | Summary of Care ---
Author Name Unknown Organization [facility] Address [address] [facility] [place] [address] Phone [phone] Care Team Providers Care Pharmacy Operations Coordinator Name Role Phone Lele Alanis MD Primary Care Provider [phone] Reason for Visit * Reason Onset Date Comments Test Results 08/29/2024 Encounter Details Date Type Department Care Team (Late st Contact Info) Description 08/29/2024 Telephone Cardiology, [facility] [address] [place] [address] Agata Saenz PA-C [address] [place] [id number] Test Results Allergies Active Allergy Reactions Criticality Noted Date Comments Clarithromycin 02/22/2001 n/v Metformin Low 03/25/2013 Diarrhea documented as of this encounter (statuses as of 08/29/2024) Medications ASPIRIN 81 MG PO CHEW One pill by mouth once a day with food 100 5 008 Active ONETOUCH DELICA PLUS LANCETS MISC Use to test blood sugar up to 4 times daily dx e11.9 100 Each 5 019 Active Blood Glucose Monitoring Suppl (ACCU-CHEK GUIDE ME) w/Device KITIndications:Typ e 2 diabetes mellitus with hemoglobin A1c goal of less than 7.0% ([facility]) Use as directed. Use to check blood sugars up to 4 times a day DX:E11.9 1 Kit 019 Active Glucose Blood (ACCU-CHEK GUIDE) STRPIndications:Ty pe 2 diabetes mellitus with hemoglobin A1c goal of less than 7.0% ([facility]) Use to check blood sugars up to 4 times a day DX:E11.9 150 Strip 11 019 Active acetaminophen (TYLENOL) 500 MG Tablet Take 1 Tab by mouth every 6 hours as needed for Pain. 30 Tab 020 Active BD Pen Needle Short U/F 31G X 8 MM (Insulin Pen Needle)Indications :Type 2 diabetes mellitus with hemoglobin A1c goal of less than 7.0% ([facility]) Use with Lantus solostar pen up to 2 times daily e11.7 180 Each 3 024 Active Vitamin D3 50 MCG (1999) Oral CapsuleIndications :Vitamin D deficiency Take 1 Capsule by mouth in the morning. 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 180 Tablet 1 024 Active Additional Information Patient taking differently:500 mg Oral,(No frequency reported), One tablet daily, every other day, Reported on 08/29/2024 Rosuvastatin Calcium 40 MG Oral Tablet (Crestor)Indicatio ns:Dyslipidemia, goal LDL below 70,Atherosclerosis of coronary artery bypass graft of [place] heart with angina pectoris ([facility]) Take 1 Tablet by mouth in the morning. 90 Tablet 3 024 Active Additional Information Patient taking differently:40 mg OralEVERY OTHER DAY, Reported on 08/29/2024 Ezetimibe 10 MG Oral Tablet (Zetia)Indications :Dyslipidemia, goal LDL below 70,Atherosclerosis of coronary artery bypass graft of [place] heart with angina pectoris ([facility]) Take 1 Tablet by mouth in the morning. 90 Tablet 3 Active Additional Information Patient taking differently:10 mg OralEVERY OTHER DAY, Reported on 08/29/2024 Gabapentin 300 MG Oral Capsule (Neurontin)Indicat ions:Type 2 diabetes mellitus with diabetic neuropathy, without long-term current use of insulin ([facility]) Take 1 Capsule by mouth in the morning and 1 Capsule before bedtime. E11.40. 180 Capsule 3 024 Active traMADol HCl 50 MG Oral Tablet (Ultram)Indication s:Pain of toe, unspecified laterality Take 1 Tablet by mouth 3 times a day as needed for Pain, Moderate. 25 Tablet 024 Active Clotrimazole 1 % External Cream (Lotrimin) 024 Active Insulin Glargine Solostar 100 UNIT/ML Subcutaneous Solution Pen-injector (Lantus SoloStar)Indicatio ns:Type 2 diabetes mellitus with hemoglobin A1c goal of less than 7.0% ([facility]) 44 units twice daily or as directed.E11.9 75 mL 3 024 Active hydrocortisone 1%/clotrimazole 1% 1:1 (Clotrimazole) cream Apply topically to affected area 2 times a day. 180 g 1 024 Active oxyCODONE HCl 5 MG Oral Tablet (Oxy IR)Indications:Rose jany localized osteoarthrosis of shoulder region, unspecified laterality Take 1 Tablet by mouth every 6 hours as needed for Pain, Severe. 10 Tablet 024 Active Metoprolol Succinate ER 25 MG Oral Tablet Extended Release 24 Hour (toPROL XL)Indications:Dys lipidemia, goal LDL below 70,Coronary artery disease of [place] artery of [place] heart with stable angina pectoris ([facility]),HTN, goal below 130/80,NSVT (nonsustained ventricular tachycardia) ([facility]) Take 1 Tablet by mouth in the morning. 90 Tablet 3 024 Active Nitroglycerin 0.4 MG Sublingual Tablet Sublingual (Nitrostat)Indicat ions:Atheroscleros is of [place] coronary artery of [place] heart without angina pectoris Place 1 Tablet under the tongue every 5 minutes as needed for Pain, Chest. up to 3 doses in 15 minutes 25 Tablet 11 Active Metoprolol Tartrate 37.5 MG Oral TabletIndications: Atherosclerosis of coronary artery bypass graft of [place] heart with angina pectoris (HCC) Take 37.5 mg by mouth in the morning and 37.5 mg before bedtime. 60 Tablet 1 024 2023 Discontinued(M edication/Dose Changed) Isosorbide Mononitrate ER 60 MG Oral Tablet Extended Release 24 Hour (Imdur)Indications :Atherosclerosis of coronary artery bypass graft of [place] heart with angina pectoris (HCC) Take 1 Tablet by mouth in the morning. 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 90 Tablet 3 024 2023 Discontinued(P atient preference/dis continuation) Nitroglycerin 0.4 MG Sublingual Tablet Sublingual (Nitrostat)Indicat ions:Atheroscleros is of [place] coronary artery of [place] heart without angina pectoris Place 1 Tablet under the tongue every 5 minutes as needed for Pain, Chest. up to 3 doses in 15 minutes 150 Tablet 1 024 2023 Discontinued documented as of this encounter (statuses as of 08/29/2024) Active Problems Problem Noted Date Diagnosed Date [...] INFARCT 04/22/2009 Overview (04/22/2009): Modified by Acute [place] Protocol #5. 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 [employer] Study #[id number] A clinical trial comparing treatment with cangrelor (in combination with usual care) to usual care, in subjects who require percutaneous coronary intervention Reclamation Furnace Operator: Ephraim Bingham MD [phone] Clinical Trial*[id number] 08/22/2006 02/15/2016 Overview (01/14/2010): Renamed Per Clinical Trials Billing Project. [employer] Study #[id number] A clinical trial comparing treatment with cangrelor (in combination with usual care) to usual care, in subjects who require percutaneous coronary intervention Reclamation Furnace Operator: Ephraim Bingham MD [phone] ADVANCE DIRECTIVE INFORMATION 04/25/2005 08/04/2024 Overview (04/25/2005): Yes, Patient instructed to provide copy of advance directive for provider to review and to be scanned into Electronic Medical Record Mixed dyslipidemia 05/30/2002 9 Overview (09/15/2009): Per Lipid Taxonomy. Morbid obesity, BMI not known 05/30/2002 12/28/2009 Overview (12/28/2009): Per Obesity Taxonomy F/u of anterior myocardial infarction 05/30/2002 04/22/2009 Overview (04/22/2009): Modified by Acute [place] Protocol #5. Dyslipidemia, goal to be determined 05/15/2002 08/25/2009 Overview (08/25/2009): Per Lipid Taxonomy DM type 2, not at goal 02/17/200207/15 Overview (07/15/2009): Modified per Diabetes protocol #14. Type 2 diabetes mellitus wit h hemoglobin A1c goal of less than 7.0% 11/15/2007 Overview (01/25/2016): ICD-10 update of inactive term documented as of this encounter (statuses as of 08/29/2024) Immunizations Name Administration Dates Next Due COVID-19 [...] No 05/27/2024 Does the household have a [facility] specialty hospital[facility] source of income? (Household - for ages [...] 1:19 AM EDT Phoebe Bansal RN * Because of a physical, mental, or emotional condition, do you have difficulty doing errands alone such as visiting a doctors office or shopping? (15 years old or older) Answer Date of Assessment Author No 02/11/2019 1:19 AM EDT Phoebe Bansal RN documented as of this encounter Mental Status * Because of a physical, mental, or emotional condition, do you have serious difficulty concentrating, remembering, or making decisions? (5 years old or older) Answer Entry Date Author No 02/11/2019 1:19 AM Phoebe Leon RN documented in this encounter Miscellaneous Notes * Telephone Encounter - Agata Saenz PA-C - 08/29/2024 3:20 PM EST Noted. Thanks Orders signed as requested. * Telephone Encounter - Isabelle Rose CMA - 08/29/2024 3:11 PM EST Pt aware of recommendations. Instructions repeated back to me. Rx sent for approval. * Telephone Encounter - Agata Saenz PA-C - 08/29/2024 1:31 PM EST Med lists reviewed Patient reported he retried jardiance with worsening dizziness, so this he may remain off. WIll remove from med list Zetia and rosuvastatin for cholesterol - he may continue this every other day for now. Repeat lipids (order in place) and will determine if we need to increase dose He remain off isosorbide due to lower BP and no chest pain. This will be removed from med list Stop metoprolol tartrate. In it's place - start metoprolol succinate 25 mg daily (this is a lower dose, but I want him to take 1 per day) Ranolazine may remain at 1 tablet per day (rather than 2) but I would like him to take this every day, not every OTHER * Telephone Encounter - Isabelle Rose CMA - 08/29/2024 1:24 PM EST Spoke with pt regarding medications. Pt taking the following medications. Tylenol- daily ASA 81mg- one tab daily Plavix 75mg- once daily Jardiance 25mg- NOT TAKING Zetia 10mg- once every other day Furosemide 20mg- NOT TAKING Gabapentin 300mg- bid Isosorbide 60mg- NOT TAKING Metoprolol 37.5mg-not started, but will molded goods spot picker and start at twice daily Ranolazine 500mg- one tab every other day Rosuvastatin 40mg- every other day Vit D- 2000iu daily Med list updated to reflect these changes documented in this encounter Plan of Treatment Upcoming Encounters Date Type Department Care Team (Late st Contact Info) Description 09/04/2024 10:00 AM EST Office Visit Wound Care, [facility] [address] [place] [address] Maria E Thibodeaux DPM [address] [place] [address] 09/23/2024 8:20 AM EST [facility] [address] [place] [address] Lele Alanis MD [address] [place] [place] [address] 09/25/2024 8:15 AM EST Cardiac Studies Cardiac Studies, [facility] [place] [address] 12/29/2024 8:00 AM EDT Office Visit Cardiology, [facility] [address] [facility] [place] [address] Courtney Fonseca CRNP [address] [facility] [place] [address] 05/12/2025 10:30 AM EDT Appointment Vascular Lab [facility] [address] [place] [address] 05/12/2025 11:00 AM EDT Appointment Vascular Lab [facility] [address] [place] [address] 05/12/2025 12:45 PM EDT Office Visit Vascular Surg [place] [address] [place] [address] Valenitn Medina MD [address] [place] [address] Scheduled Procedures Name Priority Associated Diagnoses Date/Ti [...] as of this encounter Visit Diagnoses Diagnosis Dyslipidemia, goal LDL below 70- Primary Other and unspecified hyperlipidemia Coronary artery disease of [place] artery of [place] heart with stable angina pectoris (HCC) HTN, goal below 130/80 Unspecified essential hypertension NSVT (nonsustained ventricular tachycardia) (HCC) Paroxysmal ventricular tachycardia Atherosclerosis of [place] coronary artery of [place] heart without angina pectoris documented in this encounter Advance Directives * [...] Directives occurred with: Not Discussed Care Teams Pharmacy Operations Coordinator Relationship Specialty Start Date End Date Lele Alanis MD [address] [place] [address] PCP - General Family Medicine 11/09/18 documented as of this encounter
--- OUTSIDE RECORDS SUMMARY | 2024-09-27 13:11 | External Medical Summary | Summary of Care ---
Author Name Unknown Organization [facility] Address [address] [facility] [place] [address] Phone [phone] Care Team Providers Care Door Frame Builder Name Role Phone Lele Alanis MD Primary Care Provider [phone] Reason for Referral * Evaluate & Treat - Unlimited Visits (Within 30 days (routine)) - Authorized Specialty Diagnoses / Procedures Referred By Contact Referred To Contact Cardiovascular Medicine / Cardiology Diagnoses Atherosclerosis of [place] coronary artery of [place] heart without angina pectoris Old myocardial infarct Aortocoronary bypass status Lele Alanis MD [address] [place] [address] Phone: tel: fax: Referral ID Status Reason Start Date Expiration Date Visits Requested Visits Authorized [id number] Authorized Specialty Services Required 4 [phone] Question Answer Referral Priority Within 30 days (routine) Where should this appointment be scheduled? [facility] To which of the following clinics are you referring your patient? General Cardiology Clinic Reason for Visit * Reason Onset Date Comments Referral 08/18/2024 Encounter Details Date Type Department Care Team ([facility] st Contact Info) Description 08/18/2024 Telephone [facility] [address] [place] [facility] [place] [address] Lele Alanis MD [address] [place] [address] Referral Allergies Active Allergy Reactions Criticality Noted Date Comments Clarithromycin 02/22/2001 n/v Metformin Low 03/25/2013 Diarrhea documented as of this encounter (statuses as of 08/18/2024) Medications ASPIRIN 81 MG PO CHEW One pill by mouth once a day with food 100 5 01/20/20 08 Active ONETOUCH DELICA PLUS LANCETS MISC Use to test blood sugar up to 4 times daily dx e11.9 100 Each 5 06/13/20 19 Active Blood Glucose Monitoring Suppl (ACCU-CHEK GUIDE WI) w/Device KITIndications:Type 2 diabetes mellitus with hemoglobin A1c goal of less than 7.0% (HCC) Use as directed. Use to check blood sugars up to 4 times a day DX:E11.9 1 Kit 06/16/20 19 Active Glucose Blood (ACCU-CHEK GUIDE) STRPIndications:Typ e 2 diabetes mellitus with hemoglobin A1c goal of less than 7.0% (HCC) Use to check blood sugars up to 4 times a day DX:E11.9 150 Strip 11 06/16/20 Active acetaminophen (TYLENOL) 500 MG Tablet Take [...] Additional Information Patient not taking.Reported on 08/13/2024 oxyCODONE HCl 5 MG Oral Tablet (Oxy IR) Take 1 Tablet by mouth every 6 hours as needed for Pain, Severe. 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 60 Tablet 04/15/20 24 Active Clopidogrel Bisulfate 75 MG Oral Tablet (pLAVix)Indications :Atherosclerosis of [place] coronary artery of [place] heart without angina pectoris,Atheroscle rosis of coronary artery bypass graft of [place] heart with angina pectoris (HCC) Take 1 Tablet by mouth in the morning. 90 Tablet 04/15/20 24 Active Isosorbide Mononitrate ER 60 MG Oral Tablet Extended Release 24 Hour (Imdur)Indications: Atherosclerosis of coronary artery bypass graft of [place] heart with angina pectoris (HCC) Take 1 Tablet by mouth in the morning. 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 180 Tablet 04/15/20 24 Active Rosuvastatin Calcium 40 MG Oral Tablet (Crestor)Indication s:Dyslipidemia, goal LDL below 70,Atherosclerosis of coronary artery bypass graft of [place] heart with angina pectoris (HCC) Take 1 Tablet by mouth in the morning. 90 Tablet 04/15/20 24 Active Additional Information Patient not taking.Reported on 08/13/2024 Ezetimibe 10 MG Oral Tablet (Zetia)Indications: Dyslipidemia, goal LDL below 70,Atherosclerosis of coronary artery bypass graft of [place] heart with angina pectoris (HCC) Take 1 Tablet by mouth in the morning. 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 90 Tablet 04/15/20 24 Active Additional Information Patient not [...] MG Sublingual Tablet Sublingual (Nitrostat)Indicati ons:Atherosclerosis of [place] coronary artery of [place] heart without angina pectoris Place 1 Tablet under the tongue every 5 minutes as needed for Pain, Chest. up to 3 doses in 15 minutes 150 Tablet 1 08/13/20 24 Active documented as of this encounter (statuses as of 08/18/2024) Active Problems Problem Noted Date Diagnosed Date [...] CORONARY ATHEROSCLEROSIS OF UNSPECIFIED TYPE OF VESSEL, [place] OR GRAFT documented as of this encounter (statuses as of 08/18/2024) Resolved Problems Problem Noted Date Diagnosed Date [...] Markers for Patients with Cardiovascular Disease Project #[id number] PI: Kimmie Dubon MD Please call [phone] with study related questions GENOMICS CARDIO RESEARCH OTHER*[id number] 10/14/2007 11/07/2016 Overview (01/14/2010): Renamed Per Clinical Trials Billing Project. Study Titile: Genomic Markers for Patients with Cardiovascular Disease Project #[id number] PI: Kimmie Dubon MD Please call [phone] with study related questions Benign neoplasm of colon 09/06/2007 Overview (10/07/2007): adenomatous polyp--repeat 5 years EXAMINATION OF PARTICIPANT IN CLINICAL TRIAL 6 01/14/2010 Overview (01/14/2010): Renamed Per Clinical Indexing Billing Project. [employer] Study #[id number] A clinical trial comparing treatment with cangrelor (in combination with usual care) to usual care, in subjects who require percutaneous coronary intervention Customer Support Advisor: Ephraim Bingham MD [phone] [employer] Clinical Trial*[id number] 08/22/2006 02/15/2016 Overview (01/14/2010): Renamed Per Clinical Indexing Billing Project. [employer] Study #[id number] A clinical trial comparing treatment with cangrelor (in combination with usual care) to usual care, in subjects who require percutaneous coronary intervention Customer Support Advisor: Ephraim Bingham MD [phone] ADVANCE DIRECTIVE INFORMATION 04/25/2005 08/04/2024 Overview (04/25/2005): [...] as of this encounter (statuses as of 08/18/2024) Immunizations Name Administration Dates Next Due COVID-19 [...] encounter Miscellaneous Notes * Telephone Encounter - Savana Akhtar RN - 08/18/2024 11:38 AM EST Patient's insurance requires updated referral for upcoming Cardiology evaluation 08/29/24. Referral pended, please sign if agreeable. Once signed, please route to scheduling to link with appointment. Thank you. documented in this encounter Plan of Treatment Upcoming Encounters Date Type Department Care Team (Late st Contact Info) Description 08/19/2024 10:00 AM EST Office Visit Wound Care, [facility] [address] [place] [address] Maria E Thibodeaux DPM [address] [place] [address] 08/29/2024 8:30 AM EST Office Visit Cardiology, [facility] [address] [place] [address] Agata Saenz PA-C [address] [place] [address] 09/23/2024 8:20 AM EST Office Visit [facility] [address] [place], [place] [id number] Lele Alanis MD [address] [place] [address] 05/12/2025 10:30 AM EDT Appointment Vascular Lab [place] [address] [place] [address] 05/12/2025 11:00 AM EDT Appointment Vascular Lab [place] [address] [place] [address] 05/12/2025 12:45 PM EDT Office Visit Vascular Surg [place] [address] [place] [address] Valentin Medina MD [address] [place] [address] Scheduled Procedures Name Priority Associated Diagnoses Date/Ti me COLONOSCOPY FLEXIBLE PROXIMAL DIAGNOSTIC Recall History of colon polyps Scheduled Referrals Name Type Priority Associated Diagnoses Orde r Schedule CARDIOLOGY REFERRAL OP Referral Within 30 days (routine) Atherosclerosis of [place] coronary artery of [place] heart without angina pectoris OLD MYOCARDIAL INFARCT Aortocoronary bypass status Ordered: 08/18/2024 Health Maintenance Due Date Last Done Comments [...] as of this encounter Visit Diagnoses Diagnosis Atherosclerosis of [place] coronary artery of [place] heart without angina pectoris- Primary OLD MYOCARDIAL INFARCT Old myocardial infarction Aortocoronary bypass status Postsurgical aortocoronary bypass status documented in this encounter Advance Directives * [...] Directives occurred with: Not Discussed Care Teams Door Frame Builder Relationship Specialty Start Date End Date Lele Alanis MD [address] [place] [address] PCP - General Family Medicine 11/09/18 documented as of this encounter
--- OUTSIDE RECORDS SUMMARY | 2024-09-27 13:11 | External Medical Summary | Summary of Care ---
Author Name Unknown Organization [facility] Address [address] [place] [address] Phone [phone] Care Team Providers Care Shift Leader Name Role Phone Lele Alanis MD Primary Care Provider [phone] Reason for Visit * Reason Comments Wound [...] stage (HCC) Janes Mcgee MD [address] [place] [address] Phone: tel: fax: Referral ID Status Reason Start Date Expiration Date Visits Requested Visits Authorized [id number] Authorized Specialty Services Required 08/05/[id number] Encounter Details Date Type Department Care Team (Late st Contact Info) Description 08/19/2024 10:00 AM EST Office Visit Wound Care, [facility] [address] [place] [address] Maria E Thibodeaux DPM [address] [place] [address] Diabetic ulcer of toe of right foot associated with type 2 diabetes mellitus, with fat layer exposed (HCC)*; Callus of toe; Type 2 diabetes mellitus with diabetic neuropathy, without long-term current use of insulin (HCC); Diabetic ulcer of toe of right foot associated with type 2 diabetes mellitus, unspecified ulcer stage ([facility]) [E11.621, L97.519] Allergies Active Allergy Reactions Criticality Noted Date Comments Clarithromycin 02/22/2001 n/v Metformin Low 03/25/2013 Diarrhea documented as of this encounter (statuses as of 08/20/2024) Medications ASPIRIN 81 MG PO CHEW One pill by mouth once a day with food 100 5 01/20/20 08 Active ONETOUCH DELICA PLUS LANCETS MIS Use to test blood sugar up to 4 times daily dx e11.9 100 Each 5 06/13/20 19 Active Blood Glucose Monitoring Suppl (ACCU-CHEK GUIDE PR) w/Device KITIndications:Type 2 diabetes mellitus with hemoglobin A1c goal of less than 7.0% ([facility]) Use as directed. 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 180 g 1 08/05/20 24 Active Nitroglycerin 0.4 MG Sublingual Tablet Sublingual (Nitrostat)Indicati ons:Atherosclerosis of [place] coronary artery of [place] heart without angina pectoris Place 1 Tablet under the tongue every 5 minutes as needed for Pain, Chest. up to 3 doses in 15 minutes 150 Tablet 1 08/13/20 24 Active documented as of this encounter (statuses as of 08/20/2024) Active Problems Problem Noted Date Diagnosed Date [...] INFARCT 04/22/2009 Overview (04/22/2009): Modified by [facility] [place] Protocol #5. 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 Study Titile: Genomic Markers for Patients with Cardiovascular Disease Project #[id number] PI: Kimmie Dubon MD Please call [phone] with study related questions Benign neoplasm of colon 09/06/2007 Overview (10/07/2007): adenomatous polyp--repeat 5 years EXAMINATION OF PARTICIPANT IN CLINICAL TRIAL 6 01/14/2010 Overview (01/14/2010): Renamed Per Clinical Trials Billing Project. [employer] Study #[id number] A clinical trial comparing treatment with cangrelor (in combination with usual care) to usual care, in subjects who require percutaneous coronary intervention Produce Specialist: Ephraim Bingham MD [phone] [employer] Clinical Trial*[id number] 08/22/2006 02/15/2016 Overview (01/14/2010): Renamed Per Clinical Trials Billing Project. [employer] Study #[id number] A clinical trial comparing treatment with cangrelor (in combination with usual care) to usual care, in subjects who require percutaneous coronary intervention Produce Specialist: Ephraim Bingham MD [phone] ADVANCE DIRECTIVE INFORMATION 04/25/2005 08/04/2024 Overview (04/25/2005): Yes, Patient instructed to provide copy of advance directive for provider to review and to be scanned into Electronic Medical Record Mixed dyslipidemia 05/30/2002 9 Overview (09/15/2009): Per Lipid Taxonomy. Morbid obesity, BMI not known 05/30/2002 12/28/2009 Overview (12/28/2009): Per Obesity Taxonomy F/u of anterior myocardial infarction 05/30/2002 04/22/2009 Overview (04/22/2009): Modified by [facility] [place] Protocol #5. Dyslipidemia, goal to be determined 05/15/2002 08/25/2009 Overview (08/25/2009): Per Lipid Taxonomy DM type 2, not at goal 02/17/200207/15 Overview (07/15/2009): Modified per Diabetes protocol #14. Type 2 diabetes mellitus wit h hemoglobin A1c goal of less than 7.0% 11/15/2007 Overview (01/25/2016): ICD-10 update of inactive term documented as of this encounter (statuses as of 08/20/2024) Immunizations Name Administration Dates Next Due COVID-19 [...] No 05/27/2024 Does the household have a [facility] source of income? (Household - for [...] this encounter Progress Notes * Maria E Thibodeaux, DPStar - 08/20/2024 8:47 AM EST Images from the original note were not included. [facility] Wound Care Initial Consult [facility] [place] Name: Rm Rothman : 1950 Date: 08/19/2024 [...] left second toe in March (Dr. Cummins [place]) which has healed. He also reports seeing [...] wall DM type 2, not at goal (HCC) F/u of anterior myocardial infarction non Q wave mi in Impotence of organic origin 03-13-02 Mixed dyslipidemia Morbid obesity, BMI not known ([facility]) Sleep apnea 11/15/2007 Type 2 diabetes mellitus with hemoglobin A1c goal of less than 7.0% ([facility]) 07/15/2009 Modified per Diabetes protocol #14. ICD-10 update of inactive term Past Surgical History: Procedure Laterality Date ALVEOPLASTY W/ EXTRACTION Bilateral 12/12/2019 ALVEOLOPLASTY IN CONJUNCTION W/EXT - PER QUAD performed by Radha Melgar DMD at [facility] [place] CABG, ARTERIAL, SINGLE 11/26/06 CORONARY ARTERY BYPASS GRAFT USING ARTERY 1 GRAFT performed by SMOOTH GUERRERO at [facility] [place] CABG, ARTERY-VEIN, THREE 11/26/06 CORONARY ARTERY BYPASS GRAFT ARTERIAL AND VENOUS 3 GRAFTS performed by SMOOTH GUERRERO at [facility] [place] COLONOSCOPY THRU STOMA, W/BIOPSY 09/06/07 adenomatous polyp--repeat 5 years COLONOSCOPY, DIAGNOSTIC (RECTUM) 05/16/2016 diverticulosis, repeat 5 yrs/COLONOSCOPY FLEXIBLE PROXIMAL DIAGNOSTIC performed by Bishop Spear MD at ENDOSCOPY [facility] CORONARY ARTERY DILATION, BALLOON PTCA with stent CORONARY ARTERY DILATION, BALLOON ptca with stent ENDO,VIDEO ASSIST HARVEST HARSH 11/26/06 ENDOSCOPY VIDEO ASSISTED HARVEST VEIN performed by SMOOTH GUERRERO at [place] MISCELLANEOUS ORDER ([facility] ONLY) Exam under anestheia for adhesive capsulitis PARTIAL AMPUTATION OF TOE Left 03/27/2024 AMPUTATION TOE INTERPHALANGEAL JOINT performed by Spike Cummins MD at OR [facility] REMOVAL OF TONSILS, UNDER AGE 14 age9 REPAIR/GRAFT ACHILLES TENDON Achilles Tendon Repair/Graft left SURGICAL REMOVAL, ERUPTED TOOTH AND BONE Bilateral 12/12/2019 SURGICAL EXTRACTION ERUPTED TOOTH performed by Radha Melgar DMD at [facility] [place] VASECTOMY 03/02 malina Family History Problem Relation [...] Disability secondary to heart disease Worked a [employer] for 30+ years. Social Needs Financial Resource [...] Stability Do you currently live in a snf or have no steady place to sleep [...] 5 Blood Glucose Monitoring Suppl (ACCU-CHEK GUIDE PR) w/Device KIT Use as directed. Use to [...] 180 Each 3 Vitamin D3 50 MCG (1999 [place]) Oral [...] without long-term current use of insulin ([facility]) Plan: I pared the left third toe [...] in this device. I reviewed most recent [id number] which was elevated. I discussed that high [...] Thais Mullins LPN documented in this encounter Plan of Treatment Upcoming Encounters Date Type Department Care Team (Late st Contact Info) Description 08/29/2024 8:30 AM EST Office Visit Cardiology, [facility] [address] [place] [address] Agata [facility]enz [facility]C [address] [facility] [id number] 09/04/2024 10:00 AM EST Office Visit Wound Care, [facility] [address] [place] [address] Maria E Thibodeaux DPM [address] [place] [address] 09/23/2024 8:20 AM EST Office Visit [facility] [address] [place] [address] Lele Alanis MD [facility] [place] [address] 05/12/2025 10:30 AM EDT Appointment Vascular Lab [address] [address] 05/12/2025 11:00 AM EDT Appointment Vascular Lab [address] [address] 05/12/2025 12:45 PM EDT Office Visit Vascular Surg [facility], [address] [address] Valentin Medina MD [address] [place] [address] Scheduled Procedures Name Priority Associated Diagnoses Date/Ti me COLONOSCOPY FLEXIBLE PROXIMAL DIAGNOSTIC Recall History of colon polyps Scheduled Referrals Name Type Priority Associated Diagnoses Orde r Schedule PODIATRY REFERRAL OP Referral Within 10 days (routine) Uncontrolled type 2 diabetes mellitus with hyperglycemia (HCC) Diabetic ulcer of toe of right foot associated with type 2 diabetes mellitus, unspecified ulcer stage (HCC) Ordered: 08/05/2024 Health Maintenance Due Date Last Done Comments [...] Directives occurred with: Not Discussed Care Teams Shift Leader Relationship Specialty Start Date End Date Lele Alanis MD [address] [place] [facility] [place] [facility] [place] [address] PCP - General Family Medicine 11/09/18 documented as of this encounter
--- OUTSIDE RECORDS SUMMARY | 2024-09-27 13:11 | External Medical Summary | Summary of Care ---
Author Name Unknown Organization [facility] Address [address] [facility] [place] [address] Phone [phone] Care Team Providers Care Roll Operator Name Role Phone Lele Alanis MD Primary Care Provider [phone] Reason for Visit * Reason Onset Date Comments Advice 08/19/2024 Encounter Details Date Type Department Care Team (Late st Contact Info) Description 08/19/[address] [address] Lele Alanis MD [address] [place] [id number] Advice Allergies Active Allergy Reactions Criticality Noted Date Comments Clarithromycin 02/22/2001 n/v Metformin Low 03/25/2013 Diarrhea documented as of this encounter (statuses as of 08/25/2024) Medications ASPIRIN 81 MG PO CHEW One pill by mouth once a day with food 100 5 01/20/20 08 Active ONETOUCH DELICA PLUS LANCETS MISC Use to test blood sugar up to 4 times daily dx e11.9 100 Each 5 06/13/20 19 Active Blood Glucose Monitoring Suppl (ACCU-CHEK GUIDE ME) w/Device KITIndications:Type 2 diabetes mellitus with hemoglobin A1c goal of less than 7.0% ([facility]) Use as directed. 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 90 Tablet 3 04/15/20 24 Active Additional Information Patient not taking.Reported on 08/13/2024 Ezetimibe 10 MG Oral Tablet (Zetia)Indications: Dyslipidemia, goal LDL below 70,Atherosclerosis of coronary artery bypass graft of [place] heart with angina pectoris ([facility]) Take 1 Tablet by mouth in the morning. 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 90 Tablet 3 04/15/20 24 Active Additional Information Patient not taking.Reported on 08/13/2024 Gabapentin 300 MG Oral Capsule (Neurontin)Indicati ons:Type 2 diabetes mellitus with diabetic neuropathy, without long-term current use of insulin ([facility]) Take 1 Capsule by mouth [...] hemoglobin A1c goal of less than 7.0% ([facility]) 44 units twice daily or as directed.E11.9 75 mL 3 04/17/20 24 Active hydrocortisone 1%/clotrimazole 1% 1:1 (Clotrimazole) cream Apply topically to affected area 2 times a day. 180 g 1 08/05/20 24 Active Nitroglycerin 0.4 MG Sublingual Tablet Sublingual (Nitrostat)Indicati ons:Atherosclerosis of [place] coronary artery of [place] heart without angina pectoris Place 1 Tablet under the tongue every 5 minutes as needed for Pain, Chest. up to 3 doses in 15 minutes 150 Tablet 1 08/13/20 24 Active documented as of this encounter (statuses as of 08/25/2024) Active Problems Problem Noted Date Diagnosed Date [...] INFARCT 04/22/2009 Overview (04/22/2009): Modified by [facility] [place] Protocol #5. 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 Study Titile: Genomic Markers for Patients with Cardiovascular Disease Project #[id number] PI: Kimmie Dubon MD Please call [phone] with study related questions Benign neoplasm of colon 09/06/2007 Overview (10/07/2007): adenomatous polyp--repeat 5 years EXAMINATION OF PARTICIPANT IN CLINICAL TRIAL 01/14/2010 Overview (01/14/2010): Renamed Per Clinical Trials Billing Project. [employer] Study #[id number] A clinical trial comparing treatment with cangrelor (in combination with usual care) to usual care, in subjects who require percutaneous coronary intervention Manager Etl: Ephraim Bingham MD [phone] [employer] Clinical Trial*[id number] 08/22/2006 02/15/2016 Overview (01/14/2010): Renamed Per Clinical Trials Billing Project. [employer] Study #[id number] A clinical trial comparing treatment with cangrelor (in combination with usual care) to usual care, in subjects who require percutaneous coronary intervention Manager Etl: Ephraim Bingham MD [phone] ADVANCE DIRECTIVE INFORMATION 04/25/2005 08/04/2024 Overview (04/25/2005): Yes, Patient instructed to provide copy of advance directive for provider to review and to be scanned into Electronic Medical Record Mixed dyslipidemia 05/30/2002 9 Overview (09/15/2009): Per Lipid Taxonomy. Morbid obesity, BMI not known 05/30/2002 12/28/2009 Overview (12/28/2009): Per Obesity Taxonomy F/u of anterior myocardial infarction 05/30/2002 04/22/2009 Overview (04/22/2009): Modified by [facility] [place] Protocol #5. Dyslipidemia, goal to be determined 05/15/2002 08/25/2009 Overview (08/25/2009): Per Lipid Taxonomy DM type 2, not at goal 02/17/200207/15 Overview (07/15/2009): Modified per Diabetes protocol #14. Type 2 diabetes mellitus wit h hemoglobin A1c goal of less than 7.0% 11/15/2007 Overview (01/25/2016): ICD-10 update of inactive term documented as of this encounter (statuses as of 08/25/2024) Immunizations Name Administration Dates Next Due COVID-19 [...] do you feel lonely or isolated from ose around you? Never 05/27/2024 Financial Resource [...] 1:19 AM JORDANT Phoebe Bansal RN * Are you blind [...] encounter Miscellaneous Notes * Telephone Encounter - Harleen Walls LPN - 08/25/2024 12:10 PM EST Refill given on 08/22 * Telephone Encounter - Joceline Knapp OSA - 08/19/2024 3:59 PM EST Patient called states that he saw dr alanis last week and was told to let him know when he ran out of his pain pills, oxycontin. Patient states that he ran out last Sunday and is requesting a refill. [facility] Phone for patient, documented in this encounter Plan of Treatment Upcoming Encounters Date Type Department Care Team (Late st Contact Info) Description 08/29/2024 8:30 AM EST Office Visit Cardiology, [facility] [address] [facility] [place] [address] Agata Saenz PA-C [address] [facility] [place] [address] 09/04/2024 10:00 AM EST Office Visit Wound Care, [facility] [address] [place] [address] Maria E Thibodeaux DPM [address] [place] [address] 09/23/2024 8:20 AM EST Office Visit [facility] [address] [place] [id number] Lele Alanis MD [address] [place] [address] 05/12/2025 10:30 AM EDT Appointment Vascular Lab [address] [address] 05/12/2025 11:00 AM EDT Appointment Vascular Lab [address] [address] 05/12/2025 12:45 PM EDT Office Visit Vascular Surg [facility], [address] [address] Valentin Medina MD [address] [place], [place] [id number] Scheduled Procedures Name Priority Associated Diagnoses Date/Ti [...] Directives occurred with: Not Discussed Care Teams Roll Operator Relationship Specialty Start Date End Date Lele Alanis MD [address] [place] [address] PCP - General Family Medicine 11/09/18 documented as of this encounter
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
--- OUTSIDE RECORDS SUMMARY | 2024-09-27 13:11 | External Medical Summary | Summary of Care ---
Author Name Unknown Organization [facility] Address [address] [facility] [place] [address] Phone [phone] Care Team Providers Care Tibco Developer Name Role Phone Lele Alanis MD Primary Care Provider [phone] Reason for Visit * Reason Comments Follow Up 2 month check up Encounter Details Date Type Department Care Team (Late st Contact Info) Description 08/13/2024 6:20 PM EST Office Visit [place] [address] [place] [address] Lele Alanis MD [address] [place] [address] Type 2 diabetes mellitus with hemoglobin A1c goal of less than 7.0% ([facility])*; DYSLIPIDEMIA, GOAL LDL BELOW 70; 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 90 Tablet 1 04/15/20 24 Active Ranolazine ER 500 MG Oral Tablet Extended Release 12 Hour (Ranexa)Indications :Dyslipidemia, goal LDL below 70,DM type 2 nursing care encounter ([facility]),Type 2 diabetes mellitus with diabetic neuropathy, without long-term current use of insulin ([facility]),Atheroscleros is of coronary artery bypass graft of zuni heart with angina pectoris ([facility]) Take 1 Tablet by mouth in the morning and 1 Tablet before bedtime. 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 90 Tablet 3 04/15/20 24 Active Empagliflozin 25 MG Oral Tablet (Jardiance)Indicati ons:Type 2 diabetes mellitus with diabetic neuropathy, without long-term current use of insulin ([facility]),Atheroscleros is of coronary artery bypass graft of zuni heart with angina pectoris ([facility]) Take 1 Tablet by mouth in the morning. 90 Tablet 3 04/15/20 24 Active Additional Information Patient not taking.Reported on 08/13/2024 Gabapentin 300 MG Oral Capsule (Neurontin)Indicati ons:Type 2 diabetes mellitus with diabetic neuropathy, without long-term current use of insulin ([facility]) Take 1 Capsule by mouth in [...] hemoglobin A1c goal of less than 7.0% ([facility]) 44 units twice daily or as directed.E11.9 75 mL 3 04/17/20 24 Active hydrocortisone 1%/clotrimazole 1% 1:1 (Clotrimazole) cream Apply topically to affected area 2 times a day. 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 up to 3 doses in 15 minutes 150 Tablet 1 08/13/20 24 Active Nitroglycerin 0.4 MG Sublingual Tablet Sublingual (Nitrostat) PLACE 1 TAB UNDER THE TONGUE EVERY 5 MINUTES NEEDED FOR PAIN, CHEST. UP TO 3 DOSES IN 15 MINUTES 150 Tablet 1 11/14/19 22 024 Discontin ued(Refil l) documented as of this encounter (statuses as of 08/13/2024) Active Problems Problem Noted Date Diagnosed Date [...] INFARCT 04/22/2009 Overview (04/22/2009): Modified by Acute OR Protocol #5. 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 Study Titile: Genomic Markers for Patients with Cardiovascular Disease Project #[id number] PI: Kimmie Dubon MD Please call [phone] with study related questions Benign neoplasm of colon 09/06/2007 Overview (10/07/2007): adenomatous polyp--repeat 5 years EXAMINATION OF PARTICIPANT IN CLINICAL TRIAL 6 01/14/2010 Overview (01/14/2010): Renamed Per Clinical Trials Billing Project. [employer] Study #[id number] A clinical trial comparing treatment with cangrelor (in combination with usual care) to usual care, in subjects who require percutaneous coronary intervention Can Striper: Ephraim Bingham MD [phone] Where's Up Clinical Trial*[id number] 08/22/2006 02/15/2016 Overview (01/14/2010): Renamed Per Clinical Trials Billing Project. [employer] Study #[id number] A clinical trial comparing treatment with cangrelor (in combination with usual care) to usual care, in subjects who require percutaneous coronary intervention Can Striper: Ephraim Bingham MD [phone] ADVANCE DIRECTIVE INFORMATION 04/25/2005 08/04/2024 Overview (04/25/2005): Yes, Patient instructed to provide copy of advance directive for provider to review and to be scanned into Electronic Medical Record Mixed dyslipidemia 05/30/2002 9 Overview (09/15/2009): Per Lipid Taxonomy. Morbid obesity, BMI not known 05/30/2002 12/28/2009 Overview (12/28/2009): Per Obesity Taxonomy F/u of anterior myocardial infarction 05/30/2002 04/22/2009 Overview (04/22/2009): Modified by Acute OR Protocol #5. Dyslipidemia, goal to be determined 05/15/2002 08/25/2009 Overview (08/25/2009): Per Lipid Taxonomy DM type 2, not at goal 02/17/200207/15 Overview (07/15/2009): Modified per Diabetes protocol #14. Type 2 diabetes mellitus wit h hemoglobin A1c goal of less than 7.0% 11/15/2007 Overview (01/25/2016): ICD-10 update of inactive term documented as of this encounter (statuses as of 08/13/2024) Immunizations Name Administration Dates Next Due COVID-19 [...] Sign Reading Time Taken Comments Blood Pressure 118/58 08/13/2024 5:57 PM EST Pulse 79 08/13/2024 5:57 PM EST Temperature 35.7 C (96.2 F) 08/13/2024 5:57 PM ES T Respiratory Rate 16 08/13/2024 5:57 PM EST Oxygen Saturation - - Inhaled Oxygen Concentration - - Weight 97.8 kg (215 lb 9.6 oz) 08/13/2024 5:57 P M EST Height 167.6 cm (5' 6") 08/13/2024 5:57 PM EST Body Mass Index 34.8 08/13/2024 5:57 PM EST documented in this [...] Progress Notes * Lele Alanis MD - 08/13/2024 6:46 PM EST Subjective: Rm Rothman is a 74 year old male. Chief Complaint Patient presents with Follow Up 2 month check up HPI: 74-year-old seen and I basically for the 1st time by myself in 6 months. He has seen a number of other providers in that timeframe. When I saw him 6 months ago it was primarily related to significant dizziness he was happened. These spells were occurring 3 times a week when he would get Um they would be incapacitating. The etiology was unclear. Also a month or 2 before ice Um he had a significant fall at home which he came down in hit the right temporal side of his head certainly hard enough to cause concussion. It was unclear whether that fall may have caused concussion and postconcussion syndrome contributing to dizziness. The imaging that was done 6 months ago showed least 3 age inde terminate prior strokes including 1 in the right cerebellar area. After I saw him 6 months ago he ultimately discontinued a number of medications it because he saw on the package inserts that they can cause dizziness. He also saw Vascular Surgery who weighed in on things indicating that they believed that his carotid vascular disease had nothing to do with his dizziness but felt that his cerebellar stroke probably was the cause. For the last 3 months he has not been taking all of his medications trying to avoid meds that causedizziness. It was his impression that eliminating these medications including Jardiance and Lasix and rosuvastatin was helping to lessen is dizzy spells. I am not sure that there was any cause affect. His dizzy spells have improved and now he is typically having 1 dizzy spell every month maybe which is a significant improvement. But Um not convinced it is because he went off of medications in particular the ones I mentioned. Of note is he also is on ranolazine for ischemic heart disease which definitely can cause dizziness but he never went off of that he currently is on metoprolol 37.5 mg taking it every other day. We have no idea where he stands as far as control of his diabetes but we know he has not taken Jardiance and has not for number. His last hemoglobin A1c 6 months ago was very high 10.5. He also is working with wound clinic [facility] who debrided the great toe of the right what in it revealed an ulcer underneath Um. 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 ([facility]) Toe infection Aortocoronary bypass status Fall Poor historian Type 2 diabetes mellitus with diabetic neuropathy, without long-term current use of insulin ([facility]) Carotid stenosis, non-symptomatic, bilateral PVD (peripheral vascular disease) ([facility]) Current Outpatient Medications Medication Sig Dispense Refill ASPIRIN 81 MG PO CHEW One pill by mouth once a day with food 100 5 ONETOUCH DELICA PLUS LANCETS [facility] Use to test blood sugar up to 4 times daily dx e11.9 100 Each 5 Blood Glucose Monitoring Suppl (ACCU-CHEK GUIDE DE) w/Device KIT Use as directed. Use to check blood sugars up to 4 times a day DX:E11.9 1 Kit 0 Glucose Blood (ACCU-CHEK GUIDE) STR Use to check blood sugars up to 4 times a day DX:E11.9 150 Strip 11 Nitroglycerin 0.4 MG Sublingual Tablet Sublingual (Nitrostat) PLACE 1 TAB UNDER THE TONGUE EVERY 5 MINUTES NEEDED FOR PAIN, CHEST. UP TO 3 DOSES IN 15 MINUTES 150 Tablet 1 BD Pen Needle Short U/F 31G X 8 MM (Insulin Pen Needle) Use with Lantus solostar pen up to 2 times daily e11.7 180 Each 3 Vitamin D3 50 MCG (2000 UT) Oral Capsule Take 1 Capsule by mouth in the morning. 90 Capsule 3 oxyCODONE HCl 5 MG Oral Tablet [...] area 2 timesa day. 180 g 1 acetaminophen (TYLENOL) 500 MG Tablet Take 1 Tab by mouth every 6 hours as needed for Pain. (Patient not taking: Reported on 08/13/2024) 30 Tab 0 Furosemide 20 MG Oral Tablet (Lasix) TAKE 1 TABLET BY MOUTH EVERY DAY (Patient not taking: Reportedon 08/13/2024) 90 Tablet 3 Rosuvastatin Calcium 40 MG Oral Tablet (Crestor) Take 1 Tablet by mouth in the morning. (Patient not taking: Reported on 08/13/2024) 90 Tablet 3 Empagliflozin 25 MG Oral Tablet (Jardiance) Take 1 Tablet by mouth in the morning. (Patient not taking: Reported on 08/13/2024) 90 Tablet 3 No current facility-administered medications for this visit. Review of patient's allergies indicates: Allergen Reactions Clarithromycin n/v Metformin Diarrhea Objective: BP 118/58 | Pulse 79 | Temp 35.7 C (96.2 F) | Resp 16 | Ht 1.676 m (5' 6") | Wt 97.8 kg (215 lb9.6 oz) | BMI 34.80 kg/m | BSA 2.13 m Physical Exam: CONST: alert, pleasant, no acute distress HEAD: normocephalic, atraumatic NECK: supple, soft, no adenopathy Eyes - PERRLA, EOM'I OROPHARYNX: clear, no swelling or erythema, moist CV: regular rate and rhythm, no murmur CHEST: clear to auscultation bilaterally, no rales or wheezing ABD: soft, non tender, non distended, no masses or hepatosplenomegaly EXT: no edema, no joint swelling or deformities, ASSESSMENT/PLAN: 1. Recurrent dizziness-I think the most likely etiology is prior cerebellar stroke. I think the improvement that he has seen over the last 6 months may just be an effect of time from the original onset of stroke. Certainly a number of his medications might worse dizziness. Nonetheless, I tried to convince him to go back on all his medications. He does not want to do that. But he assured me that he would restart Jardiance and rosuvastatin and he is not going to stop the ranolazine. He may take the Jardiance rosuvastatin every other day for awhile as that is his plan although I recommend every day. I warned him that he could get a dizzy spell whether he takes the medication or if he does not take the medication and that he should make drastic changes with a 1 episode. 2. Diabetic foot ulcer right great toe-continue follow wound clinic 3. Ischemic heart disease-he needs to be on the beta-tuan i.e. metoprolol as well as the ranolazine. I will see him again in a month Lele Alanis MD documented in this encounter Nursing Notes * Yoli Luong LPN - 08/13/2024 6:08 PM EST The patient has been properly identified by confirmation of name and date of . Chief Complaint Patient presents with Follow Up 2 month check up documented in this encounter Plan of Treatment Upcoming Encounters Date Type Department Care Team (Late st Contact Info) Description 08/19/2024 10:00 AM EST Office Visit Wound Care, [facility] [address] [place] [address] Maria E Thibodeaux DPM [address] [place] [address] 08/29/2024 8:30 AM EST Office Visit [facility] [address] [facility] [address] Agata Saenz PA-C [address] [place] [address] 09/23/2024 8:20 AM EST Office Visit [facility] [address] [place] [address] Lele Alanis MD [facility] [place] [address] 05/12/2025 10:30 AM EDT Appointment Vascular Lab [address] [address] 05/12/2025 11:00 AM EDT Appointment Vascular Lab [address] [address] 05/12/2025 12:45 PM EDT Office Visit Vascular Surg [facility] [address] [place] [address] Valentin Medina MD [address] [place] [address] Scheduled Orders Name Type Priority Associated Diagnoses Orde r Schedule HEMOGLOBIN A1C Lab Routine Type 2 diabetes mellitus with hemoglobin A1c goal of less than 7.0% ([facility]CC) Expected: 08/13/2024 (Approximate), Expires: 08/13/2025 COMPREHENSIVE METABOLIC PANEL Lab Routine Type 2 diabetes mellitus with hemoglobin A1c goal of less than 7.0% ([facility]CC) DYSLIPIDEMIA, GOAL LDL BELOW 70 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 Expected: 08/13/2024 (Approximate), Expires: 08/13/2025 LIPID PANEL WITH DIRECT LDL IF TG IS HIGH Lab Routine DYSLIPIDEMIA, GOAL LDL BELOW 70 Expected: 08/13/2024, Expires: 08/13/2025 Scheduled Procedures Name Priority Associated Diagnoses Date/Ti [...] as of this encounter Visit Diagnoses Diagnosis Type 2 diabetes mellitus with hemoglobin A1c goal of less than 7.0% ([facility]CC)- Primary DYSLIPIDEMIA, GOAL LDL BELOW 70 Other and unspecified hyperlipidemia 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
--- OUTSIDE RECORDS SUMMARY | 2024-09-27 13:11 | External Medical Summary | Summary of Care ---
Author Name Unknown Organization [facility] Address [address] [place] [address] Phone [phone] Care Team Providers Care Financial Assistance Specialist Name Role Phone Lele Alanis MD Primary Care Provider Reason for Referral * Precert (Diagnostic Medical) (Within 10 days (routine)) - Authorized Specialty Diagnoses / Procedures Referred By Contac t Referred To Contact Cardiac Studies Diagnoses Atherosclerosis of [place] coronary artery of [place] heart without angina pectoris Coronary artery disease of [place] artery of [place] heart with stable angina pectoris (HCC) Cerebrovascular accident (CVA), unspecified mechanism (HCC) Procedures ECHO, COMPLETE (2D), TRANS-THORACIC Agata Saenz PA-C [address] [place] [address] Phone: tel: fax: Referral ID Status Reason Start Date Expiration Date V isits Requested Visits Authorized [id number] Authorized Precert 08/29/2024 999 [id number] Reason for Visit * Reason Comments Follow Up * Evaluate & Treat - Unlimited Visits (Within 30 days (routine)) - Authorized Specialty Diagnoses / Procedures Referred By Contact Referred To Contact Cardiovascular Medicine / Cardiology Diagnoses Atherosclerosis of [place] coronary artery of [place] heart without angina pectoris Old myocardial infarct Aortocoronary bypass status Lele Alanis MD [address] [place] [address] Phone: tel: fax: Referral ID Status Reason Start Date Expiration Date Visits Requested Visits Authorized [id number] Authorized Specialty Services Required 4 [phone] Encounter Details Date Type Department Care Team (Kelsi carrillo Contact Info) Description 08/29/2024 8:30 AM EST Office Visit Cardiology, [facility] [address] [place] [address] Agata Saenz PA-C [address] [place] [id number] Coronary artery disease of [place] artery of [place] heart with stable angina pectoris (HCC)*; Atherosclerosis of [place] coronary artery of [place] heart without angina pectoris; Cerebrovascular accident (CVA), [...] Active Blood Glucose Monitoring Suppl (ACCU-CHEK GUIDE GA) w/Device KITIndications:Type 2 diabetes mellitus with hemoglobin A1c goal of less than 7.0% ([facility]) Use as directed. Use to [...] hours as needed for Pain. 30 Tab 03/13/20 20 Active BD Pen Needle Short U/F 31G X 8 MM (Insulin Pen Needle)Indications: Type 2 diabetes mellitus with hemoglobin A1c goal of less than 7.0% ([facility]) Use with Lantus solostar pen up to 2 times daily e11.7 180 Each 3 11/27/19 24 Active Vitamin D3 50 MCG (1999 UT) Oral CapsuleIndications: Vitamin D deficiency Take 1 Capsule by mouth in the morning. 90 Capsule 3 03/04/20 24 Active Metoprolol Tartrate 37.5 MG Oral TabletIndications:A therosclerosis of coronary artery bypass graft of [place] heart with angina pectoris (HCC) Take 37.5 mg by mouth in the morning and 37.5 mg before bedtime. 60 Tablet 1 04/15/20 24 Active Additional Information Patient not taking.Reported on 08/29/2024 Clopidogrel Bisulfate 75 MG Oral Tablet (pLAVix)Indications :Atherosclerosis of [place] coronary artery of [place] heart without angina pectoris,Atheroscle rosis of coronary artery bypass graft of [place] heart with angina pectoris (HCC) Take 1 Tablet by mouth in the morning. 90 Tablet 1 04/15/20 24 Active Isosorbide Mononitrate ER 60 MG Oral Tablet Extended Release 24 Hour (Imdur)Indications: Atherosclerosis of coronary artery bypass graft of [place] heart with angina pectoris (HCC) Take 1 Tablet by mouth in the morning. 90 Tablet 1 04/15/20 24 Active Additional Information Patient not taking.Reported on 08/29/2024 Ranolazine ER 500 MG Oral Tablet Extended Release 12 Hour (Ranexa)Indications :Dyslipidemia, goal LDL below 70,DM type 2 nursing care encounter ([facility]),Type 2 diabetes mellitus with diabetic neuropathy, without long-term current use of insulin ([facility]),Atheroscleros is of coronary artery bypass graft of [place] heart with angina pectoris (HCC) Take 1 Tablet by mouth in the morning and 1 Tablet before bedtime. 180 Tablet 1 04/15/20 24 Active Additional Information Patient taking differently:500 mg Oral,(No frequency reported), One tablet daily, every other day, Reported on 08/29/2024 Rosuvastatin Calcium 40 MG Oral Tablet (Crestor)Indication s:Dyslipidemia, goal LDL below 70,Atherosclerosis of coronary artery bypass graft of [place] heart with angina pectoris (HCC) Take 1 Tablet by mouth in the morning. 90 Tablet 3 04/15/20 24 Active Additional Information Patient taking differently:40 mg OralEVERY OTHER DAY, Reported on 08/29/2024 Ezetimibe 10 MG Oral Tablet (Zetia)Indications: Dyslipidemia, goal LDL below 70,Atherosclerosis of coronary artery bypass graft of [place] heart with angina pectoris (HCC) Take 1 Tablet by mouth in the morning. 90 Tablet 3 04/15/20 24 Active Additional Information Patient taking differently:10 mg OralEVERY OTHER DAY, Reported on 08/29/2024 Empagliflozin 25 MG Oral Tablet (Jardiance)Indicati ons:Type 2 diabetes mellitus with diabetic neuropathy, without long-term current use of insulin ([facility]),Atheroscleros is of coronary artery bypass graft of [place] heart with angina pectoris ([facility]) Take 1 Tablet by mouth in the morning. 90 Tablet 3 04/15/20 24 Active Additional Information Patient not taking.Reported on 08/29/2024 Gabapentin 300 MG Oral Capsule (Neurontin)Indicati ons:Type 2 diabetes mellitus with diabetic neuropathy, without long-term current use of insulin ([facility]) Take 1 Capsule by mouth [...] hemoglobin A1c goal of less than 7.0% ([facility]) 44 units twice daily or [...] MG Sublingual Tablet Sublingual (Nitrostat)Indicati ons:Atherosclerosis of [place] coronary artery of [place] heart without angina pectoris Place 1 Tablet under the tongue every 5 minutes as needed for Pain, Chest. up to 3 doses in 15 minutes 150 Tablet 1 08/29/20 24 Active Additional Information Patient not taking.Reported on 08/29/2024 Furosemide 20 MG Oral Tablet (Lasix)Indications: Edema, unspecified type TAKE 1 TABLET BY MOUTH EVERY DAY 90 Tablet 3 03/20/20 24 024 Discontin ued(Patie nt preferenc e/discont inuation) Nitroglycerin 0.4 MG Sublingual Tablet Sublingual (Nitrostat)Indicati ons:Atherosclerosis of [place] coronary artery of [place] heart without angina pectoris Place 1 Tablet [...] CORONARY ATHEROSCLEROSIS OF UNSPECIFIED TYPE OF VESSEL, [place] OR GRAFT documented as of this encounter [...] Markers for Patients with Cardiovascular Disease Project #[id number] PI: Kimmie Dubon MD Please call [phone] with study related questions GENOMICS CARDIO RESEARCH OTHER*[id number] 10/14/2007 11/07/2016 Overview (01/14/2010): Renamed Per Clinical Trials Billing Project. Study Titile: Genomic Markers for Patients with Cardiovascular Disease Project #[id number] PI: Kimmie Dubon MD Please call [phone] with study related questions Benign neoplasm of colon 09/06/2007 Overview (10/07/2007): adenomatous polyp--repeat 5 years EXAMINATION OF PARTICIPANT IN CLINICAL TRIAL 6 01/14/2010 Overview (01/14/2010): Renamed Per Clinical Trials Billing Project. [employer] Study #[id number] A clinical trial comparing treatment with cangrelor (in combination with usual care) to usual care, in subjects who require percutaneous coronary intervention Logistics Support: Ephraim Bingham MD [phone] Aqwise Clinical Trial*[id number] 08/22/2006 02/15/2016 Overview (01/14/2010): Renamed Per Clinical Trials Billing Project. [employer] Study #[id number] A clinical trial comparing treatment with cangrelor (in combination with usual care) to usual care, in subjects who require percutaneous coronary intervention Logistics Support: Ephraim Bingham MD [phone] ADVANCE DIRECTIVE INFORMATION 04/25/2005 08/04/2024 Overview (04/25/2005): [...] No 05/27/2024 Does the household have a [facility] source of income? (Household - for ages [...] in 2006 and multiple coronary interventions. 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 ([facility]) Toe infection Aortocoronary bypass status Fall Poor historian Type 2 diabetes mellitus with diabetic neuropathy, without long-term current use of insulin ([facility]) Carotid stenosis, non-symptomatic, bilateral PVD (peripheral vascular disease) ([facility]) Past Surgical History: Procedure Laterality Date ALVEOPLASTY W/ EXTRACTION Bilateral 12/12/2019 ALVEOLOPLASTY IN CONJUNCTION W/EXT - PER QUAD performed by Radha Melgar DMD at OR [facility] CABG, ARTERIAL, SINGLE 11/26/06 CORONARY ARTERY BYPASS GRAFT USING ARTERY 1 GRAFT performed by SMOOTH GUERRERO at OR [facility] CABG, ARTERY-VEIN, THREE 11/26/06 CORONARY ARTERY BYPASS GRAFT ARTERIAL AND VENOUS 3 GRAFTS performed by SMOOTH GUERRERO at OR [facility] COLONOSCOPY THRU STOMA, W/BIOPSY 09/06/07 adenomatous polyp--repeat 5 years COLONOSCOPY, DIAGNOSTIC (RECTUM) 05/16/2016 diverticulosis, repeat 5 yrs/COLONOSCOPY FLEXIBLE PROXIMAL DIAGNOSTIC performed by Bishop Spear MD at ENDOSCOPY [facility] CORONARY ARTERY DILATION, [place] PTCA with stent CORONARY ARTERY DILATION, B[place] ptca with stent ENDO,VIDEO ASSIST HARVEST HARSH 11/26/06 ENDOSCOPY VIDEO ASSISTED HARVEST VEIN performed by SMOOTH GUERRERO at OR [facility] MISCELLANEOUS ORDER (HS ONLY) Exam under anestheia for adhesive capsulitis PARTIAL AMPUTATION OF TOE Left 03/27/2024 AMPUTATION TOE INTERPHALANGEAL JOINT performed by Spike Cummins MD at OR [facility] REMOVAL OF TONSILS, UNDER AGE 14 age9 REPAIR/GRAFT ACHILLES TENDON Achilles Tendon Repair/Graft left SURGICAL REMOVAL, ERUPTED TOOTH AND BONE Bilateral 12/12/2019 SURGICAL EXTRACTION ERUPTED TOOTH performed by Radha Melgar DMD at OR [facility] VASECTOMY 03/02 malina Family History Problem Relation [...] food 100 5 ONETOUCH [place] PLUS LANCETS [facility] Use to test blood sugar up to 4 times daily dx e11.9 100 Each 5 Blood Glucose Monitoring Suppl (ACCU-CHEK GUIDE GA) w/Device KIT Use as directed. Use to [...] normal exam Cardiac studies/labs: EKG reviewed from [facility] dated 07/01/24: NSR with PAC's No ischemic [...] 100 bpm). Isolated SVEs were occasional (4.0%, [address]), SVE Couplets were rare (<1.0%, 47), and [...] 11/28/2024). | Check-out note: Schedule echo with bubblestcristina Saenz PA-C Department of Cardiology Text in this note was generated using an ambient documentation service. I discussed the use of a device to record and summarize our discussion today. All persons present during the encounter consented to its use. This chart was completed in part utilizing [employer] Speech Voice Recognition Software. Grammatical errors, random [...] 10:00 AM EST Office Visit Wound Care, [facility] [address] [place] [address] Maria E Thibodeaux DPM [address] [address] 09/23/2024 8:20 AM EST Office Visit [facility], Shayan Resendiz [address] [place] [phone] Lele Alanis MD [address] [place] [address] 09/25/2024 8:15 AM EST Cardiac Studies Cardiac Studies, [facility] [address] [place] [address] 12/29/2024 8:00 AM EDT Office Visit Cardiology, [address] [address] Courtney Fonseca CRNP [address] [place] [address] 05/12/2025 10:30 AM EDT Appointment Vascular Lab [address] [address] 05/12/2025 11:00 AM EDT Appointment Vascular Lab [address] [address] 05/12/2025 12:45 PM EDT Office Visit Vascular Surg [address] [address] Valentin Medina MD [address] [place] [address] Scheduled Orders Name Type Priority Associated Diagnoses Orde r Schedule ECHO, COMPLETE (2D), TRANS-THORACIC Echocardiology Routine Atherosclerosis of [place] coronary artery of [place] heart without angina pectoris Coronary artery disease of [place] artery of [place] heart with stable angina pectoris (HCC) Cerebrovascular [...] Visit Diagnoses Diagnosis Coronary artery disease of [place] artery of [place] heart with stable angina pectoris (HCC)- Primary Atherosclerosis of [place] coronary artery of [place] heart without angina pectoris Cerebrovascular accident (CVA), [...] Directives occurred with: Not Discussed Care Teams Financial Assistance Specialist Relationship Specialty Start Date End Date Lele Alanis MD [address] [place] [address] PCP - General Family Medicine 11/09/18 documented as of this encounter
--- OUTSIDE RECORDS SUMMARY | 2024-09-27 13:11 | External Medical Summary | Summary of Care ---
Author Name Unknown Organization [facility] Address [address] [facility] [place] [address] Phone [phone] Care Team Providers Care Mining Engineering Technologist Name Role Phone Lele Alanis MD Primary Care Provider [phone] Reason for Visit * Reason Comments Follow Up * Evaluate & Treat - Unlimited Visits (Within 10 days (routine)) - Authorized Specialty Diagnoses / Procedures Referred By Contac t Referred To Contact Orthopaedic Surgery / Orthopedics Diagnoses Uncontrolled type 2 diabetes mellitus with hyperglycemia (HCC) Diabetic ulcer of toe of right foot associated with type 2 diabetes mellitus, unspecified ulcer stage (HCC) Janes Mcgee MD [facility] [place] [address] Phone: tel: fax: Referral ID Status Reason Start Date Expiration Date Visits Requested Visits Authorized [id number] Authorized Specialty Services Required 08/05/2024 [id number] Encounter Details Date Type Department Care Team (Late st Contact Info) Description 08/12/2024 2:20 PM EST Office Visit Podiatry, [facility] [address] [place] [address] Nereida Grant DPM [address] [place] [phone] Open toe wound, initial encounter*; Type 2 diabetes mellitus with diabetic neuropathy, without long-term current use of insulin (HCC) Allergies Active Allergy Reactions Criticality Noted Date Comments Clarithromycin 02/22/2001 n/v Metformin Low 03/25/2013 Diarrhea documented as of this encounter (statuses as of 08/12/2024) Medications ASPIRIN 81 MG PO CHEW One pill by mouth once a day with food 100 5 8 Active ONETOUCH DELICA PLUS LANCETS MISC Use to test blood sugar up to 4 times daily dx e11.9 100 Each 5 9 Active Blood Glucose Monitoring Suppl (ACCU-CHEK GUIDE DC) w/Device KITIndications:Type 2 diabetes mellitus with hemoglobin A1c goal of less than 7.0% ([facility]) Use as directed. Use to check blood sugars up to 4 times a day DX:E11.9 1 Kit 9 Active Glucose Blood (ACCU-CHEK GUIDE) STRPIndications:Typ e 2 diabetes mellitus with hemoglobin A1c goal of less than 7.0% ([facility]) Use to check blood sugars up to 4 times a day DX:E11.9 150 Strip 11 9 Active acetaminophen (TYLENOL) 500 MG Tablet Take 1 Tab by mouth every 6 hours as needed for Pain. 30 Tab 0 Active Nitroglycerin 0.4 MG Sublingual Tablet Sublingual (Nitrostat) PLACE 1 TAB UNDER THE TONGUE EVERY 5 MINUTES NEEDED FOR PAIN, CHEST. UP TO 3 DOSES IN 15 MINUTES 150 Tablet 1 2 Active BD Pen Needle Short U/F 31G X 8 MM (Insulin Pen Needle)Indications: Type 2 diabetes mellitus with hemoglobin A1c goal of less than 7.0% (HCC) Use with Lantus solostar pen up to 2 times daily e11.7 180 Each 3 4 Active Vitamin D3 50 MCG (1999 UT) Oral CapsuleIndications: Vitamin D deficiency Take 1 Capsule by mouth in the morning. 90 Capsule 3 4 Active Furosemide 20 MG Oral Tablet (Lasix)Indications: Edema, unspecified type TAKE 1 TABLET BY MOUTH EVERY DAY 90 Tablet 3 4 Active oxyCODONE HCl 5 MG Oral Tablet (Oxy IR) Take 1 Tablet by mouth every 6 hours as needed for Pain, Severe. 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 60 Tablet 4 Active Clopidogrel Bisulfate 75 MG Oral Tablet (pLAVix)Indications :Atherosclerosis of [place] coronary artery of [place] heart without angina pectoris,Atheroscle rosis of coronary artery bypass graft of [place] heart with angina pectoris (HCC) Take 1 Tablet by mouth in the morning. 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 90 Tablet 3 4 Active Gabapentin 300 MG Oral Capsule (Neurontin)Indicati ons:Type 2 diabetes mellitus with diabetic neuropathy, without long-term current use of insulin (HCC) Take 1 Capsule by mouth in the morning and 1 Capsule before bedtime. E11.40. 180 Capsule 3 4 Active traMADol HCl 50 MG Oral Tablet (Ultram)Indications :Pain of toe, unspecified laterality Take 1 Tablet by mouth 3 times a day as needed for Pain, Moderate. 25 Tablet 4 Active Clotrimazole 1 % External Cream (Lotrimin) 4 Active Insulin Glargine Solostar 100 UNIT/ML Subcutaneous Solution Pen-injector (Lantus SoloStar)Indication s:Type 2 diabetes mellitus with hemoglobin A1c goal of less than 7.0% (HCC) 44 units twice daily or as directed.E11. 9 75 mL 3 4 Active hydrocortisone 1%/clotrimazole 1% 1:1 (Clotrimazole) cream Apply topically to affected area 2 times a day. 180 g 1 4 Active documented as of this encounter (statuses as of 08/12/2024) Active Problems Problem Noted Date Diagnosed Date [...] INFARCT 04/22/2009 Overview (04/22/2009): Modified by Acute AR Protocol #5. 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 Study Titile: Genomic Markers for Patients with Cardiovascular Disease Project #[id number] PI: Kimmie Dubon MD Please call [phone] with study related questions Benign neoplasm of colon 09/06/2007 Overview (10/07/2007): adenomatous polyp--repeat 5 years EXAMINATION OF PARTICIPANT IN CLINICAL TRIAL 6 01/14/2010 Overview (01/14/2010): Renamed Per Clinical Trials Billing Project. [employer] Study #[id number] A clinical trial comparing treatment with cangrelor (in combination with usual care) to usual care, in subjects who require percutaneous coronary intervention Media Planner: Ephraim Bingham MD [phone] [facility] Clinical Trial*[id number] 08/22/2006 02/15/2016 Overview (01/14/2010): Renamed Per Clinical Trials Billing Project. [employer] Study #[id number] A clinical trial comparing treatment with cangrelor (in combination with usual care) to usual care, in subjects who require percutaneous coronary intervention Media Planner: Ephraim Bingham MD [phone] ADVANCE DIRECTIVE INFORMATION 04/25/2005 08/04/2024 Overview (04/25/2005): Yes, Patient instructed to provide copy of advance directive for provider to review and to be scanned into Electronic Medical Record Mixed dyslipidemia 05/30/2002 9 Overview (09/15/2009): Per Lipid Taxonomy. Morbid obesity, BMI not known 05/30/2002 12/28/2009 Overview (12/28/2009): Per Obesity Taxonomy F/u of anterior myocardial infarction 05/30/2002 04/22/2009 Overview (04/22/2009): Modified by Acute AR Protocol #5. Dyslipidemia, goal to be determined 05/15/2002 08/25/2009 Overview (08/25/2009): Per Lipid Taxonomy DM type 2, not at goal 02/17/200207/15 Overview (07/15/2009): Modified per Diabetes protocol #14. Type 2 diabetes mellitus wit h hemoglobin A1c goal of less than 7.0% 11/15/2007 Overview (01/25/2016): ICD-10 update of inactive term documented as of this encounter (statuses as of 08/12/2024) Immunizations Name Administration Dates Next Due COVID-19 [...] documented in this encounter Progress Notes * Nereida Grant DPM - 08/12/2024 2:37 PM EST Podiatry Established Note [facility] Name: Rm Rothman : 1950 Date: 08/12/2024 REASON FOR VISIT: WOUND SUBJECTIVE: This patient is a 74 year old male who presents today with complaints of a possible wound to the right great toe. Pt was seen by his PCP and they noted callus to the area. There was some concern of a possible wound. 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 He has diabetic shoes and inserts. He was previously seen by Dr. Villarreal with a callus to the area (jun 2024) in wound care although he was previously see for a wound by her in [facility]. He also sees [facility] for podiatric concerns but previously saw Dr Paz for a left 2nd digit ulceration prior to the amputation. He currently feels well. Denies any constitutional symp toms. 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 ICD-10 update of inactive term ALLERGIES: Review of patient's allergies indicates: Allergen Reactions Clarithromycin n/v Metformin Diarrhea REVIEW OF SYSTEMS: Constitutional: Negative for fever, activity change and appetite change. Respiratory: Negative for shortness of breath. Cardiovascular: Negative for chest pain and leg swelling. Gastrointestinal: Negative for nausea, vomiting, abdominal pain and constipation. Musculoskeletal: Negative for joint swelling, arthralgias and gait problem. Skin: Negative for color change, rash and +wound. Neurological: Negative for dizziness, weakness and numbness. FOCUSED PODIATRIC EXAM: Vitals: There were no vitals filed for this visit. General: Patient is awake alert oriented to person place time. No apparent distress. Vascular: Pedal pulses are palpable. +varicose veins. No edema noted. Neurologic: LOPS Musculoskeletal: Partial left 2nd digit amputation. Dermatological: Pinch callus to the right great toe- once debrided a wound was noted with surrounding macerated tissue. The wound is superficial and without any signs of infection. Does not probe deep. DIAGNOSTIC STUDIES: None new ASSESSMENT: (S91.109A) Open toe wound, initial encounter (primary encounter diagnosis) (E11.40) Type 2 diabetes mellitus with diabetic neuropathy, without long-term current use of insulin ([facility]) PLAN: - Pt seen and evaluated - Wound noted to the plantar right hallux - Area was debrided sharply to healthy tissue - Silver nitrate applied - Abx ointment and dsd to the area - Discussed care with the pt - Stressed the importance of limiting his ambulation. - I also spoke with his (Inna) to reiterate care for the wound - Pt with an appointment with Dr. Thibodeaux in wound care. Nereida Grant DPM documented in this encounter Nursing Notes * Inge Shetty LPN - 08/12/2024 2:06 PM EST Pt here for a callus on right hallux that his PCP is concerned with having a wound under it. He is diabetic. documented in this encounter Plan of Treatment Upcoming Encounters Date Type Department Care Team (Late st Contact Info) Description 08/13/2024 6:20 PM EST Office Visit [facility] [address] [place] [address] Lele Alanis MD [address] [place] [address] 08/19/2024 10:00 AM EST Office Visit Wound Care, [facility] [address] [place] [address] Maria E Thibodeaux, DPM [address] [place] [address] 08/29/2024 8:30 AM EST Office Visit Cardiology, [facility] [address] [place] [address] Agata Saenz PA-C [address] [place] [id number] 05/12/2025 10:30 AM EDT Appointment [facility] [place] [address] [place] [address] 05/12/2025 11:00 AM EDT Appointment [facility] [place] [address] [place] [address] 05/12/2025 12:45 PM EDT Office Visit Vascular Surg [place] [address] [place] [address] Valentin Medina MD [address] [place] [address] Scheduled Procedures Name Priority Associated Diagnoses Date/Ti me COLONOSCOPY FLEXIBLE PROXIMAL DIAGNOSTIC Recall History of colon polyps Scheduled Referrals Name Type Priority Associated Diagnoses Orde r Schedule ORTHOPAEDICS REFERRAL OP Referral Within 10 days (routine) [...] as of this encounter Visit Diagnoses Diagnosis Open toe wound, initial encounter- Primary Type 2 diabetes mellitus with diabetic [...] Directives occurred with: Not Discussed Care Teams Mining Engineering Technologist Relationship Specialty Start Date End Date Lele Alanis MD [address] [place] [address] PCP - General Family Medicine 11/09/18 documented as of this encounter
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
--- OUTSIDE RECORDS SUMMARY | 2024-09-27 13:12 | External Medical Summary | Summary of Care ---
Author Name Unknown Organization [facility] Address [address] [place] [address] Phone [phone] Care Team Providers Care Employee Development Manager Name Role Phone Lele Alanis MD Primary Care Provider [phone] Reason for Visit * Reason Onset Date Comments Advice 04/27/2024 Patient has call ed in and is asking for a return call back to this mobile # [phone] to get advice for his foot? He would like to talk to someone about this matter. He is also asking for a sooner PO appointment? Please advice and return his call back to him to answer his questions that he has. Encounter Details Date Type Department Care Team (Late st Contact Info) Description 04/27/2024 Telephone Orthopaedics [facility] [address] [place] [address] Spike Cummins MD [address] [place] [address] Advice (Patient has called in and is askin... Allergies Active Allergy Reactions Criticality Noted Date Comments Clarithromycin 02/22/2001 n/v Metformin Low 03/25/2013 Diarrhea documented as of this encounter (statuses as of 07/27/2024) Medications Medication Sig Dispensed Refills Start Date End Date Status ASPIRIN 81 MG PO CHEW One pill by mouth once a day with food 100 5 01/20/2008 Active ONETOUCH DELICA PLUS LANCETS MISC Use to test blood sugar up to 4 times daily dx e11.9 100 Each 5 06/13/2019 Active Blood Glucose Monitoring Suppl (ACCU-CHEK GUIDE AR) w/Device KITIndications:Type 2 diabetes mellitus with hemoglobin A1c goal of less than 7.0% ([facility]) Use as directed. Use to check blood sugars up to 4 times a day DX:E11.9 1 Kit 06/16/2019 Active Glucose Blood (ACCU-CHEK GUIDE) STRPIndications:Type 2 diabetes mellitus with hemoglobin A1c goal of less than 7.0% ([facility]) Use to check blood sugars up to [...] U/F 31G X 8 MM (Insulin Pen Needle)Indications:Typ e 2 diabetes mellitus with hemoglobin A1c goal of less than 7.0% ([facility]) Use with Lantus solostar pen up to 2 times daily e11.7 180 Each 3 11/27/2023 Active Vitamin D3 50 MCG (1999 UT) Oral CapsuleIndications:Vit jon D deficiency Take 1 Capsule by mouth in the morning. 90 Capsule 3 03/04/2024 Active Furosemide 20 MG Oral Tablet (Lasix)Indications:Cam ma, unspecified type TAKE 1 TABLET BY MOUTH EVERY DAY 90 Tablet 3 03/20/2024 Active oxyCODONE HCl 5 MG Oral Tablet (Oxy IR) Take 1 Tablet by mouth every 6 hours as needed for Pain, Severe. 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 90 Tablet 04/15/2024 Active Ranolazine ER 500 MG Oral Tablet Extended Release 12 Hour (Ranexa)Indications:Dy slipidemia, goal LDL below 70,DM type 2 nursing care encounter ([facility]),Type 2 diabetes mellitus with diabetic neuropathy, without long-term current use of insulin ([facility]),Atherosclerosis of coronary artery bypass graft of [place] heart with angina pectoris ([facility]) Take 1 Tablet by mouth in the morning and 1 Tablet before bedtime. 180 Tablet 04/15/2024 Active Rosuvastatin Calcium 40 MG Oral Tablet (Crestor)Indications:D yslipidemia, goal LDL below 70,Atherosclerosis of coronary artery bypass graft of [place] heart with angina pectoris ([facility]) Take 1 Tablet by mouth in the morning. 90 Tablet 04/15/2024 Active Ezetimibe 10 MG Oral Tablet (Zetia)Indications:Dys lipidemia, goal LDL below 70,Atherosclerosis of coronary artery bypass graft of [place] heart with angina pectoris ([facility]) Take 1 Tablet by mouth in the morning. 90 Tablet 04/15/2024 Active Empagliflozin 25 MG Oral Tablet (Jardiance)Indications :Type 2 diabetes mellitus with diabetic neuropathy, without long-term current use of insulin ([facility]),Atherosclerosis of coronary artery bypass graft of [place] heart with angina pectoris ([facility]) Take 1 Tablet by mouth in the morning. 90 Tablet 04/15/2024 Active Gabapentin 300 MG Oral Capsule (Neurontin)Indications :Type 2 diabetes mellitus with diabetic neuropathy, without long-term current use of insulin ([facility]) Take 1 Capsule by mouth in the morning and 1 Capsule before bedtime. E11.40. 180 Capsule 04/15/2024 Active traMADol HCl 50 MG Oral Tablet (Ultram)Indications:Pa in of toe, unspecified laterality Take 1 Tablet by mouth 3 times a day as needed for Pain, Moderate. 25 Tablet 04/15/2024 Active Clotrimazole 1 % External Cream (Lotrimin) 02/28/2024 Active Insulin Glargine Solostar 100 UNIT/ML Subcutaneous Solution Pen-injector (Lantus SoloStar)Indications:T ype 2 diabetes mellitus with hemoglobin A1c goal of less than 7.0% ([facility]) 44 units twice daily or as directed.E11.9 75 mL 3 04/17/2024 Active documented as of this encounter (statuses as of 07/27/2024) Active Problems Problem Noted Date Diagnosed Date [...] MYOCARDIAL INFARCT 04/22/2009 Overview: Modified by [facility] [place] Protocol #5. 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 Study Titile: Genomic Markers for Patients with Cardiovascular Disease Project #[id number] PI: Kimmie Dubon MD Please call [phone] with study related questions Benign neoplasm of colon 09/06/2007 Overview: adenomatous polyp--repeat 5 years EXAMINATION OF PARTICIPANT IN CLINICAL TRIAL 01/14/2010 Overview: Renamed Per Clinical Trials Billing Project. XATA Study #[id number] A clinical trial comparing treatment with cangrelor (in combination with usual care) to usual care, in subjects who require percutaneous coronary intervention Surveyor Mine: Ephraim Bingham MD [phone] [employer] Clinical Trial*[id number] 08/22/2006 02/15/2016 Overview: Renamed Per Clinical Trials Billing Project. XATA Study #[id number] A clinical trial comparing treatment with cangrelor (in combination with usual care) to usual care, in subjects who require percutaneous coronary intervention Surveyor Mine: Ephraim Bingham MD [phone] Mixed dyslipidemia 05/30/2002 9 Overview: Per Lipid Taxonomy. Morbid obesity, BMI not known 05/30/2002 12/28/2009 Overview: Per Obesity Taxonomy F/u of anterior myocardial infarction 05/30/2002 04/22/2009 Overview: Modified by [facility] [place] Protocol #5. Dyslipidemia, goal to be determined 05/15/2002 08/25/2009 Overview: Per Lipid Taxonomy DM type 2, not at goal 02/17/200207/15 Overview: Modified per Diabetes protocol #14. Type 2 diabetes mellitus wit h hemoglobin A1c goal of less than 7.0% 11/15/2007 Overview: ICD-10 update of inactive term documented as of this encounter (statuses as of 07/27/2024) Immunizations Name Administration Dates Next Due COVID-19 [...] encounter Miscellaneous Notes * Telephone Encounter - Denise Aranda OSA - 04/28/2024 8:25 AM EDT Appt cx * Telephone Encounter - Yenny Berumen OSA - 04/27/2024 3:30 PM EDT Patient has called in and is asking for a return call back to this mobile # [phone] to get advice for his foot? He would like to talk to someone about this matter. He is also asking for a sooner PO appointment? Please advice and return his call back to him to answer his questions that he has. documented in this encounter Plan of Treatment Upcoming Encounters Date Type Department Care Team (Late st Contact Info) Description 08/13/2024 6:20 PM EST Office Visit [facility] [address] [place] [id number] Lele Alanis MD [address] [facility] [address] 08/29/2024 8:30 AM EST Office Visit Cardiology, [facility] [address] [facility] [place] [address] Agata Saenz PA-C [address] [place] [address] 05/12/2025 10:30 AM EDT Appointment Vascular Lab [facility] [address] [place] [address] 05/12/2025 11:00 AM EDT Appointment Vascular Lab [place] [address] [place] [address] 05/12/2025 12:45 PM EDT Office Visit Vascular Surg [facility] [address] [place] [address] Valentin Medina MD [address], [place] [id number] Scheduled Procedures Name Priority Associated Diagnoses Date/Ti [...] Directives occurred with: Not Discussed Care Teams Employee Development Manager Relationship Specialty Start Date End Date Lele Alanis MD [address] [place] [address] PCP - General Family Medicine 11/09/18 documented as of this encounter
--- OUTSIDE RECORDS SUMMARY | 2024-09-27 13:12 | External Medical Summary | Summary of Care ---
Author Name Unknown Organization [facility] Address [address] [place] [address] Phone [phone] Care Team Providers Care Scrap Dealer Name Role Phone Lele Alanis MD Primary Care Provider [phone] Reason for Referral * Evaluate & Treat - Unlimited Visits (Within 10 days (routine)) - Authorized Specialty Diagnoses / Procedures Referred By Michi young Referred To Contact Podiatry Diagnoses Uncontrolled type 2 diabetes mellitus with hyperglycemia (HCC) Diabetic ulcer of toe of right foot associated with type 2 diabetes mellitus, unspecified ulcer stage (HCC) Janes Mcgee MD [address] [place] [address] Referral ID Status Reason Start Date Expiration Date Visits Requested Visits Authorized [id number] Authorized Specialty Services Required 08/05/2024 [id number] Question Answer Referral Priority Within 10 days (routine) Where should this appointment be scheduled? [facility] Which condition are you referring this patient for? Wound or ulcer Comments Uncontrolled diabetic with right great toe callus/ulcer. * Evaluate & Treat - Unlimited Visits (Within 10 days (routine)) - Authorized Specialty Diagnoses / Procedures Referred By Michi young Referred To Contact Orthopaedic Surgery / Orthopedics Diagnoses Uncontrolled type 2 diabetes mellitus with hyperglycemia (HCC) Diabetic ulcer of toe of right foot associated with type 2 diabetes mellitus, unspecified ulcer stage (HCC) Janes Mcgee MD [address] [place] [address] Referral ID Status Reason Start Date Expiration Date Visits Requested Visits Authorized [id number] Authorized Specialty Services Required 08/05/2024 [id number] Question Answer Referral Priority Within 10 days (routine) Where should this appointment be scheduled? [facility] What body part is the patient being seen for? Foot/Ankle/Calf What condition is the patient being seen for? Wound Comments Uncontrolled diabetic with right great toe callus and ulcer. Reason for Visit * Reason Comments Acute Patient is here with complaints of both feet having calluses. Had a blood blister but he states that fell off. Sees a data storage specialist but states he wont see him for 9 weeks and he needs someone to look at his feet. Patient needs a refill for Hydrocortisone/Clotrimazole cream with refills. Encounter Details Date Type Department Care Team (Latest Contact Info) Description 08/05/2024 8:40 AM EST Office Visit [facility] [address] [place] [address] Janes Mcgee MD [address], [place] [id number] Uncontrolled type 2 diabetes mellitus with hyperglycemia ([facility])*; Diabetic ulcer of toe of right foot associated with type 2 diabetes mellitus, unspecified ulcer stage (HCC) Allergies Active Allergy Reactions Criticality Noted [...] U/F 31G X 8 MM (Insulin Pen Needle)Indications:Ty pe 2 diabetes mellitus with hemoglobin A1c goal of less than 7.0% ([facility]) Use with Lantus solostar pen up to 2 times daily e11.7 180 Each 3 11/27/2023 Active Vitamin D3 50 MCG (1999 UT) Oral CapsuleIndications:Vi tamin D deficiency Take 1 Capsule by mouth in the morning. 90 Capsule 3 03/04/2024 Active Furosemide 20 MG Oral Tablet (Lasix)Indications:Ed moses, unspecified type TAKE 1 TABLET BY MOUTH EVERY DAY 90 Tablet 3 03/20/2024 Active oxyCODONE HCl 5 MG Oral Tablet (Oxy IR) Take 1 Tablet by mouth every 6 hours as needed for Pain, Severe. 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 60 Tablet 1 04/15/2024 Active Clopidogrel Bisulfate 75 MG Oral Tablet (pLAVix)Indications:A therosclerosis of [place] coronary artery of [place] heart without angina pectoris,Atherosclero sis of coronary artery bypass graft of [place] heart with angina pectoris (HCC) Take 1 Tablet by mouth in the morning. 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 90 Tablet 04/15/2024 Active Ranolazine ER 500 MG Oral Tablet Extended Release 12 Hour (Ranexa)Indications:D yslipidemia, goal LDL below 70,DM type 2 nursing care encounter ([facility]),Type 2 diabetes mellitus with diabetic neuropathy, without long-term current use of insulin ([facility]),Atherosclerosis of coronary artery bypass graft of [place] heart with angina pectoris ([facility]) Take 1 Tablet by mouth in the morning and 1 Tablet before bedtime. 180 Tablet 04/15/2024 Active Rosuvastatin Calcium 40 MG Oral Tablet (Crestor)Indications: Dyslipidemia, goal LDL below 70,Atherosclerosis of coronary artery bypass graft of [place] heart with angina pectoris ([facility]) Take 1 Tablet by mouth in the morning. 90 Tablet 04/15/2024 Active Ezetimibe 10 MG Oral Tablet (Zetia)Indications:Dy slipidemia, goal LDL below 70,Atherosclerosis of coronary artery bypass graft of [place] heart with angina pectoris ([facility]) Take 1 Tablet by mouth in the morning. 90 Tablet 04/15/2024 Active Empagliflozin 25 MG Oral Tablet (Jardiance)Indication s:Type 2 diabetes mellitus with diabetic neuropathy, without long-term current use of insulin ([facility]),Atherosclerosis of coronary artery bypass graft of [place] heart with angina pectoris ([facility]) Take 1 Tablet by mouth in the morning. 90 Tablet 04/15/2024 Active Gabapentin 300 MG Oral Capsule (Neurontin)Indication s:Type 2 diabetes mellitus with diabetic neuropathy, without long-term current use of insulin ([facility]) Take 1 Capsule by mouth in the morning and 1 Capsule before bedtime. E11.40. 180 Capsule 04/15/2024 Active traMADol HCl 50 MG Oral Tablet (Ultram)Indications:P ain of toe, unspecified laterality Take 1 Tablet by mouth 3 times a day as needed for Pain, Moderate. 25 Tablet 04/15/2024 Active Clotrimazole 1 % External Cream (Lotrimin) 02/28/2024 Active Insulin Glargine Solostar 100 UNIT/ML Subcutaneous Solution Pen-injector (Lantus SoloStar)Indications: Type 2 diabetes mellitus with hemoglobin A1c goal of less than 7.0% ([facility]) 44 units twice daily or as directed.E11.9 75 mL 04/17/2024 Active hydrocortisone 1%/clotrimazole 1% 1:1 (Clotrimazole) cream APPLY TOPICALLY TO AFFECTED AREA 3 TIMES A DAY NEEDED FOR IRRITATION OR ITCHING. 180 g 1 06/17/2024 Active documented as of this encounter (statuses [...] MYOCARDIAL INFARCT 04/22/2009 Overview: Modified by Acute OR Protocol #5. 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 Study Titile: Genomic Markers for Patients with Cardiovascular Disease Project #[id number] PI: Kimmie Dubon MD Please call [phone] with study related questions Benign neoplasm of colon 09/06/2007 Overview: adenomatous polyp--repeat 5 years EXAMINATION OF PARTICIPANT IN CLINICAL TRIAL 01/14/2010 Overview: Renamed Per Clinical Trials Billing Project. [employer] Study #[id number] A clinical trial comparing treatment with cangrelor (in combination with usual care) to usual care, in subjects who require percutaneous coronary intervention Case Fitter: Ephraim Bingham MD [phone] [employer] Clinical Trial*[id number] 08/22/2006 02/15/2016 Overview: Renamed Per Clinical Trials Billing Project. [employer] Study #[id number] A clinical trial comparing treatment with cangrelor (in combination with usual care) to usual care, in subjects who require percutaneous coronary intervention Case Fitter: Ephraim Bingham MD [phone] ADVANCE DIRECTIVE INFORMATION 04/25/2005 08/04/2024 Overview: Yes, Patient instructed to provide copy of advance directive for provider to review and to be scanned into Electronic Medical Record Mixed dyslipidemia 05/30/2002 9 Overview: Per Lipid Taxonomy. Morbid obesity, BMI not known 05/30/2002 12/28/2009 Overview: Per Obesity Taxonomy F/u of anterior myocardial infarction 05/30/2002 04/22/2009 Overview: Modified by Acute OR Protocol #5. Dyslipidemia, [...] Sign Reading Time Taken Comments Blood Pressure 110/62 08/05/2024 8:36 AM EST Pulse 83 08/05/2024 8:36 AM EST Temperature 36.4 C (97.5 F) 08/05/2024 8:36 AM ES T Respiratory Rate 15 08/05/2024 8:36 AM EST Oxygen Saturation 99% 08/05/2024 8:36 AM EST Inhaled Oxygen Concentration - - Weight 96.9 kg (213 lb 9.6 oz) 08/05/2024 8:36 A M EST Height - - Body Mass Index 34.48 05/28/2024 11:32 AM EDT documented in this encounter Functional Status Functional Status Response [...] (15 years old or older) No 02/12/20 Cognitive Status Response Date of Assessm ent Because of a physical, menta l, or emotional condition, do you have serious difficulty concentrating, remembering, or making decisions? (5 years old or older) No 02/11/2019 documented as of this encounter Progress Notes * Janes Mcgee MD - 08/05/2024 8:50 AM EST Images from the original note were not included. Assessment and Plan {Visit Diagnoses Problem List - Anxiety disorder Asthma Diabetes Hyperlipidemia Hypertension Obesity :7111 1. Uncontrolled type 2 diabetes mellitus with hyperglycemia (HCC) 2. Diabetic ulcer of toe of right foot associated with type 2 diabetes mellitus, unspecified ulcer stage (HCC) Uncontrolled type 2 diabetic with right great toe callus/ulcer. Called the podiatry office who stated he could not be seen for 90 days due to Medicare insurance reasons. This seems inappropriate given patient has a new diabetic foot ulcer. Will refer to ortho and podiatry through [facility] for evaluation. Discussed importance of compliance with diabetes regimen. Wrap-Up Follow up as needed. History of Present Illness The patient is a 74-year-old male with past medical history of type 2 diabetes, dyslipidemia, OSKAR, history of OR who presents for follow up. 74-year-old male with uncontrolled type 2 diabetes with an A1c of 11 presents due to callus/ulcer on the right great toe. He has history of osteomyelitis of the left 2nd toe resulting in amputation. Patient notes a callus forming over the last number of weeks resulting in pain with ambulation. We did discuss his diabetes. He was an A1c of 11 currently taking Jardiance and insulin. He has tried metformin and Ozempic in the past but did not tolerate due to side effects. He drinks Pepsi all day every day. He did discuss that if he was stopped drinking Pepsi he probably would get very good control of his diabetes which I am in agreement with. He currently is scheduled to see [facility] [place] on 08/21/2024 per patient report. States that they were requiring a 9 week waiting. Prior to him being seen. Physical Exam Vitals: 08/05/24 0836 Temp: 36.4 C (97.5 F) Pulse: 83 Resp: 15 SpO2: 99% BP: 110/62 Physical Exam Physical Exam Vitals reviewed. Constitutional: General: He is not in acute distress. Skin: Comments: Callus at the medial aspect of the right great toe with central ulceration. Foot is warm and well perfused. Neurological: Mental Status: He is alert. I spent a total of 30-39 minutes (exact time 36 mins) on the date of service in preparation, delivery, and documentation of the care provided to Rm Rothman excluding any time spent in the performance of separately billed services or time spent by another provider/QHP. This note has been completed in part utilizing [employer] Voice Recognition Software. Due to technical limitations of the software, grammatical errors, random word insertions, prounoun errors, and incomplete sentences may occur. Any formal questions or concerns about the content, text, or information contained within the body of this dictation should be directly addressed to the provider for clarification. documented in this encounter Nursing Notes * Jayda So LPN - 08/05/2024 8:40 AM EST The patient has been properly identified by confirmation of name and date of . Chief Complaint Patient presents with Acute Patient is here with complaints of both feet having calluses. Had a blood blister but he states that fell off. Sees a data storage specialist but states he wont see him for 9 weeks and he needs someone to look at his feet. Patient needs a refill for Hydrocortisone/Clotrimazole cream with refills. documented in this encounter Plan of Treatment Upcoming Encounters Date Type Department Care Team (Late st Contact Info) Description 08/12/2024 2:20 PM EST Office Visit Podiatry, [address] [address] Nereida Grant, DPM [address] [place] [address] 08/13/2024 6:20 PM EST Office Visit [facility] [address] [place] [id number] Lele Alanis MD [address] [place] [address] 08/19/2024 10:00 AM EST Office Visit Wound Care, [address] [address] Maria E Thibodeaux, DP [address] [place] [address] 08/29/2024 8:30 AM EST Office Visit Cardiology, [facility] [address] [address] Agata Saenz PA-C [address] [address] 05/12/2025 10:30 AM EDT Appointment Vascular Lab [address] [address] 05/12/2025 11:00 AM EDT Appointment Vascular Lab [address] [place] [address] 05/12/2025 12:45 PM EDT Office Visit V[facility] [address] [place] [address] Valentin Medina MD [address] [place] [address] Scheduled Procedures Name Priority Associated Diagnoses Date/Ti me COLONOSCOPY FLEXIBLE PROXIMAL DIAGNOSTIC Recall History of colon polyps Scheduled Referrals Name Type Priority Associated Diagnoses Orde r Schedule ORTHOPAEDICS REFERRAL OP Referral Within 10 days (routine) Uncontrolled type 2 diabetes mellitus with hyperglycemia (HCC) Diabetic ulcer of toe of right foot associated with type 2 diabetes mellitus, unspecified ulcer stage (HCC) Ordered: 08/05/2024 PODIATRY REFERRAL OP Referral Within 10 d ays (routine) Uncontrolled type 2 diabetes mellitus with [...] 2 diabetes mellitus with hyperglycemia (HCC)- Primary Diabetic ulcer of toe of right foot associated with type 2 diabetes mellitus, unspecified ulcer stage (HCC) documented in this encounter Advance Directives [...] Directives occurred with: Not Discussed Care Teams Scrap Dealer Relationship Specialty Start Date End Date Lele Alanis MD [address] [place] [address] PCP - General Family Medicine 11/09/18 documented as of this encounter
--- OUTSIDE RECORDS SUMMARY | 2024-09-27 13:12 | External Medical Summary | Summary of Care ---
Author Name Unknown Organization [facility] Address [address] [facility] [place] [address] Phone [phone] Care Team Providers Care Supervisor Pipeline Name Role Phone Lele Alanis MD Primary Care Provider [phone] Reason for Visit * Reason Comments Follow Up Encounter Details Date Type Department Care Team (Late st Contact Info) Description 07/15/2024 11:00 AM EDT Office [facility] [address] [facility] [address] Abigail Pierre PA-C [address] [facility] [place] [address] Cerebellar stroke ([facility])* Allergies Active Allergy Reactions Criticality Noted Date Comments Clarithromycin 02/22/2001 n/v Metformin Low 03/25/2013 Diarrhea documented as of this encounter (statuses as of 07/15/2024) Medications Medication Sig Dispensed Refills Start Date [...] goal of less than 7.0% ([facility]) Use as directed. 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 60 Tablet 1 04/15/2024 Active Clopidogrel Bisulfate 75 MG Oral Tablet (pLAVix)Indications:A therosclerosis of [place] coronary artery of [place] heart without angina pectoris,Atherosclero sis of coronary artery bypass graft of [place] heart with angina pectoris (HCC) Take 1 Tablet by mouth in the morning. 90 Tablet 1 04/15/2024 Active Isosorbide Mononitrate ER 60 MG Oral Tablet Extended Release 24 Hour (Imdur)Indications:At herosclerosis of coronary artery bypass graft of [place] heart with angina pectoris (HCC) Take 1 Tablet by mouth in the morning. 90 Tablet 1 04/15/2024 Active Ranolazine ER 500 MG Oral Tablet Extended Release 12 Hour (Ranexa)Indications:D yslipidemia, goal LDL below 70,DM type 2 nursing care encounter ([facility]),Type 2 diabetes mellitus with diabetic neuropathy, without long-term current use of insulin ([facility]),Atherosclerosis of coronary artery bypass graft of [place] heart with angina pectoris ([facility]) Take 1 Tablet by mouth in the morning and 1 Tablet before bedtime. 180 Tablet 04/15/2024 Active Rosuvastatin Calcium 40 MG Oral Tablet (Crestor)Indications: Dyslipidemia, goal LDL below 70,Atherosclerosis of coronary artery bypass graft of [place] heart with angina pectoris ([facility]) Take 1 Tablet by mouth in the morning. 90 Tablet 04/15/2024 Active Ezetimibe 10 MG Oral Tablet (Zetia)Indications:Dy slipidemia, goal LDL below 70,Atherosclerosis of coronary artery bypass graft of [place] heart with angina pectoris ([facility]) Take 1 Tablet by mouth in the morning. 90 Tablet 04/15/2024 Active Empagliflozin 25 MG Oral Tablet (Jardiance)Indication s:Type 2 diabetes mellitus with diabetic neuropathy, without long-term current use of insulin ([facility]),Atherosclerosis of coronary artery bypass graft of [place] heart with angina pectoris ([facility]) Take 1 Tablet by mouth in the morning. 90 Tablet 04/15/2024 Active Gabapentin 300 MG Oral Capsule (Neurontin)Indication s:Type 2 diabetes mellitus with diabetic neuropathy, without long-term current use of insulin ([facility]) Take 1 Capsule by mouth in [...] goal of less than 7.0% ([facility]) 44 units twice daily or as directed.E11.9 75 mL 3 04/17/2024 Active hydrocortisone 1%/clotrimazole 1% 1:1 (Clotrimazole) cream APPLY TOPICALLY TO AFFECTED AREA 3 TIMES A DAY NEEDED FOR IRRITATION OR ITCHING. 180 g 1 06/17/2024 Active documented as of this encounter (statuses as of 07/15/2024) Active Problems Problem Noted Date Diagnosed Date [...] MYOCARDIAL INFARCT 04/22/2009 Overview: Modified by Acute [place] Protocol #5. 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 Study Titile: Genomic Markers for Patients with Cardiovascular Disease Project #[id number] PI: Kimmie Dubon MD Please call [phone] with study related questions Benign neoplasm of colon 09/06/2007 Overview: adenomatous polyp--repeat 5 years EXAMINATION OF PARTICIPANT IN CLINICAL TRIAL 6 01/14/2010 Overview: Renamed Per Clinical Trials Billing Project. [place] Study #[id number] A clinical trial comparing treatment with cangrelor (in combination with usual care) to usual care, in subjects who require percutaneous coronary intervention Metal Grinder: Ephraim Bingham MD [phone] [place] Clinical Trial*[id number] 08/22/2006 02/15/2016 Overview: Renamed Per Clinical Trials Billing Project. [place] Study #[id number] A clinical trial comparing treatment with cangrelor (in combination with usual care) to usual care, in subjects who require percutaneous coronary intervention Metal Grinder: Ephraim Bingham MD [phone] Mixed dyslipidemia 05/30/200216/200 9 Overview: Per Lipid Taxonomy. Morbid obesity, BMI not known 05/30/2002 12/28/2009 Overview: Per Obesity Taxonomy F/u of anterior myocardial infarction 05/30/2002 04/22/2009 Overview: Modified by Acute [place] Protocol #5. Dyslipidemia, goal to be determined 05/15/2002 08/25/2009 Overview: Per Lipid Taxonomy DM type 2, not at goal 02/17/200207/15 Overview: Modified per Diabetes protocol #14. Type 2 diabetes mellitus wit h hemoglobin A1c goal of less than 7.0% 11/15/2007 Overview: ICD-10 update of inactive term documented as of this encounter (statuses as of 07/15/2024) Immunizations Name Administration Dates Next Due COVID-19 [...] Sign Reading Time Taken Comments Blood Pressure 108/60 07/15/2024 10:57 AM EDT Pulse 64 07/15/2024 10:57 AM EDT Temperature 36.6 C (97.9 F) 07/15/2024 10:57 AM E DT Respiratory Rate 18 07/15/2024 10:57 AM EDT Oxygen Saturation 99% 07/15/2024 10:57 AM EDT Inhaled Oxygen Concentration - - Weight 96.4 kg (212 lb 8 oz) 07/15/2024 10:57 AM EDT Height - - Body Mass Index 34.3 05/28/2024 11:32 AM EDT documented in this [...] as of this encounter Progress Notes * Abigail Pierre PA-C - 07/15/2024 11:00 AM EDT HISTORY & PHYSICAL EXAMINATION - NEUROLOGY Name: Rm Rothman Date: 07/15/2024 Time: 6:55 AM Chief Complaint Patient presents with Follow Up SUBJECTIVE: Rm Rothman is a 74 year old male with history of DM2, diabetic neuropathy, OSKAR onCPAP, CAD s/p bypass on Plavix, HLD, hx [place] who presents today for follow- up of dizziness with exertion, and cerebellar infarcts. He was last seen on 04/22/24 for a 3 month history of imbalance/dizziness with exertion, and cerebellar infarcts. "Recent MRI brain/IAC notes at least 2 subacute on chronic right cerebellar infarcts. One area of mass-like enhancement likely additional subacute stroke. Unlikely to be the cause of patient's dizziness given exertional component. Symptoms not indicative of superior semicircular canal dehiscence. Not vertiginous. - CTA head/neck - Right ICA 70% stenosis; Vascular eval no intervention repeat US 1 year - Zio monitor - encouraged to note episodes of dizziness - "Rare symptomatic events correlate with supraventricular ectopy and ventricular ectopy." - Increase hydration; currently only drinking Pepsi - Repeat MRI brain w/wo contrast in 3 mo to confirm stroke - Expected changes - Continue DAPT - Reduction of vascular risk factors including HgbA1c <7%, BP < 130/80, LDL < 70. Continueuse of CPAP." Evaluated by PCP in May. He had self-discontinued metoprolol, Jardiance and isosorbide out of frustration. Advised to restart medications one-by- one and monitor for recurrence of dizziness. Today states he has complete resolution of dizziness. He is unclear which medications he stopped and which he is still taking. Does say that he is only taking metoprolol once every other day. Still taking ASA/Plavix. Allergies: Clarithromycin and Metformin Problem list: Patient Active Problem List Diagnosis IMPOTENCE, ORGANIC ORIGN CORONARY ATHEROSCLEROSIS OF UNSPECIFIED TYPE OF VESSEL, [place] ADVANCE DIRECTIVE INFORMATION Obstructive sleep apnea OLD MYOCARDIAL INFARCT DYSLIPIDEMIA, GOAL LDL BELOW 70 Primary localized osteoarthrosis of shoulder region Vitamin D deficiency Type 2 diabetes mellitus with hemoglobin A1c goal of less than 7.0% ([facility]) Intertrigo Fracture of one rib of right side Traumatic pneumothorax Uncontrolled type 2 diabetes mellitus with hyperglycemia ([facility]) 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 ([facility]) Toe infection Aortocoronary bypass status Fall Poor historian Type 2 diabetes mellitus with diabetic neuropathy, without long-term current use of insulin ([facility]) Carotid stenosis, non-symptomatic, bilateral PVD (peripheral vascular disease) ([facility]) Past Medical History: 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 adenomatous polyp--repeat 5 years Chronic ischemic heart disease Coronary atherosclerosis 10/01/99 cathed and stent placed/ stress test 12/02 old infarct mid anterior septum and anterior LV wall DM type 2, not at goal ([facility]) F/u of anterior myocardial infarction non Q wave mi in Impotence of organic origin 03-13-02 Mixed dyslipidemia Morbid obesity, BMI not known ([facility]) Sleep apnea 11/15/2007 Type 2 diabetes mellitus with hemoglobin A1c goal of less than 7.0% ([facility]) 07/15/2009 Modified per Diabetes protocol #14. ICD-10 update of inactive term Current Outpatient Medications: Current Outpatient Medications Medication Sig Dispense Refill ASPIRIN 81 MG PO CHEW One pill by mouth once a day with food 100 5 ONETOUCH DELICA PLUS LANCETS [facility] Use to test blood sugar up to [...] as needed for Pain. 30 Tab 0 Nitroglycerin 0.4 MG Sublingual Tablet Sublingual (Nitrostat) [...] BY MOUTH EVERY DAY 90 Tablet 3 oxyCODONE HCl 5 MG [...] mouth in the morning. 90 Tablet 3 Ezetimibe 10 MG Oral [...] 3 hydrocortisone 1%/clotrimazole 1% 1:1 (Clotrimazole) cream APPLY TOPICALLY TO AFFECTED AREA 3 TIMESA DAY NEEDED FOR IRRITATION OR ITCHING. 180 g 1 No current facility-administered medications for this visit. Family History: Family History Problem Relation Name Age of Onset Diabetes Mother Diabetes Grandmother (Maternal) Heart Disorder Father of heart attack @ 47 Stroke Mother just had a stroke @ 73 No Past Hx Son No Past Hx Daughter SOCIAL HISTORY: Social History Tobacco Use Smoking status: Never Passive exposure: Past Smokeless tobacco: Never Vaping Use Vaping status: Never Used Substance Use Topics Alcohol use: No Comment: No alcohol for the past twelve years- quit 2006 Drug use: No REVIEW OF SYSTEMS: As above OBJECTIVE: Physical Examination: BP 108/60 (BP Site: Right Arm, BP Position: Sitting, BP Cuff Size: Regular) | Pulse 64 | Temp 36.6 C (97.9 F) (Tympanic) | Resp 18 | Wt 96.4 kg (212 lb 8 oz) | SpO2 99% | BMI 34.30 kg/m | BSA 2.12 m General appearance: healthy, alert, no distress Physical Exam: Constitutional: Appearance normally developed,well nourished,no deformities,well groomed Head and face: normocephalic,atraumatic Respiratory: normal effort,clear to auscultation Cardiovascular: normal heart sounds and regular rhythm Psychiatric: normal judgement and insight,normal mood,normal affect NEUROLOGIC EXAMINATION: Mental Status Exam: alert,oriented to time, place, person,normal recent memory,normal remote memory,normal attention span,normal concentration,normal language,normal fund of knowledge LABORATORY: Results for orders placed or performed in visit on 02/28/24 CBC Result Value Ref Range WBC 3.84 (L) 4.00 - 10.80 K/uL RBC 4.72 4.50 - 5.25 M/uL HGB 14.2 14.0 - 16.8 g/dL HCT 43.7 40.0 - 48.4 % MCV 92.6 82.0 - 99.5 fL MCH 30.1 27.0 - 34.0 pg MCHC 32.5 32.0 - 36.0 g/dL RDW 13.7 11.5 - 15.5 % PLT 151 140 - 400 K/uL MPV 9.9 6.6 - 11.1 fL nRBCs 0 <=0 /100 WBCs Results for orders placed or performed in visit on 02/28/24 BASIC METABOLIC PANEL Result Value Ref Range BUN 12 6 - 20 mg/dL CREATININE 1.0 0.6 - 1.2 mg/dL EGFR 82 >=60 mL/min SODIUM 139 135 - 146 mmol/L POTASSIUM 4.0 3.5 - 5.1 mmol/L CHLORIDE 102 98 - 107 mmol/L CO2 26 22 - 32 mmol/L ANION GAP 11 7 - 15 mmol/L GLUCOSE 341 (H) 70 - 120 mg/dL CALCIUM 9.1 8.4 - 10.2 mg/dL Results for orders placed or performed in visit on 02/13/24 LIPID PANEL WITH DIRECT LDL IF TG IS HIGH Result Value Ref Range Triglycerides 222 (H) <=174 mg/dL Cholesterol 160 <200 mg/dL HDL Cholesterol 38 (L) >39 mg/dL Non-HDL Cholesterol 122 <=159 mg/dL Lab Results Component Value Date/Time HEMOGLOBIN A1C - [facility] 11.0 (H) 02/13/2024 09:16 AM HEMOGLOBIN A1C - [facility] 10.1 (H) 09/10/2023 08:51 AM HEMOGLOBIN A1C - [facility] 9.8 (H) 05/28/2023 10:04 AM HEMOGLOBIN A1C - [facility] 8.8 (H) 07/31/2020 09:13 AM HEMOGLOBIN A1C - [facility] 12.4 (H) 04/07/2020 09:10 AM HEMOGLOBIN A1C - [facility] 8.8 (H) 11/25/2019 08:05 AM No results found for: "[id number]" No results found for: "KOHF30ANQ9" No results found for: "[id number]" 25OH VITAMIN D TOTAL (ng/mL) Date Value 11/22/2015 19 (L) 01/12/2015 20 01/05/2014 18.7 (L) 25-Hydroxy Vitamin D (ng/mL) Date Value 02/13/2024 14 (L) 03/12/2023 20 Vitamin D Level Interpretation deficient: <20 ng/ml insufficient: 20-30 ng/ml normal: 31-100 ng/ml Review of prior Studies: MRI Brain 06/17/24 IMPRESSION: 1. Decreased right inferior cerebellar hemisphere focus size compared with 03/2024 brain/IAC MR, with interval signal change and new susceptibility. Possible inferior enhancement versus artifact due to slice selection. Taken together, these findings are most consistent with remote territorial infarct and secondary calcified laminar necrosis. 2. Scattered nonspecific cerebral white matter T2/FLAIR hyperintense and nonenhancing foci, compatible with chronic microvascular ischemic changes, greater in number than expected for stated age. 3. Chronic brain parenchymal volume loss. IMPRESSION/PLAN: Rm Rothman is a 74 year old male with history of DM2, diabetic neuropathy, OSKAR on CPAP, CAD s/p bypass on Plavix, HLD, hx [place] presents for follow- up of dizziness and cerebellarinfarct. Dizziness resolved after medication changes.. He is unsure which medications he is still taking, although states he is only taking metoprolol once every other day. Will call with updated list. - Continue DAPT - Reduction of vascular risk factors including HgbA1c <7%, BP < 130/80, LDL < 70. Continueuse of CPAP - Follow up with PCP re medications - Cardiology follow- up; recent Zio no atrial fibrillation/atrial tachycardia - Vascular follow up 1 year with repeat carotid US Follow up as needed. I spent a total of 20 minutes on the date of service in preparation, delivery,and documentation of the care provided to Rm Rothman. Naseem Lagos DO available for direct consultation. Abigail Pierre PA-C, Neurology [facility] [address] [place] [address] 07/15/2024 11:25 AM documented in this encounter Nursing Notes * Sharon Ozuna LPN - 07/15/2024 10:55 AM EDT Patient verified identity by spelling of last name and date. Chief Complaint Patient presents with Follow Up documented in this encounter Plan of Treatment Upcoming Encounters Date Type Department Care Team (Late st Contact Info) Description 08/13/2024 6:20 PM EST Office Visit [place] [address] [place] [address] Lele Alanis MD [address] [place] [address] 08/29/2024 8:30 AM EST [facility] [address] [facility] [place] [address] Agata Saenz PA-C [address] [facility] [place] [address] 05/12/2025 10:30 AM EDT Appointment Vascular Lab [address] [address] 05/12/2025 11:00 AM EDT Appointment Vascular Lab [address] [address] 05/12/2025 12:45 PM EDT Office Visit Vascular Surg [address] [address] Valentin Medina MD [facility] [place] [address] Scheduled Procedures Name Priority Associated Diagnoses Date/Ti [...] this encounter Visit Diagnoses Diagnosis Cerebellar stroke (HCC)- Primary documented in this encounter Advance Directives [...] Directives occurred with: Not Discussed Care Teams Supervisor Pipeline Relationship Specialty Start Date End Date Lele Alanis MD [address] [place] [address] PCP - General Family Medicine 11/09/18 documented as of this encounter
--- OUTSIDE RECORDS SUMMARY | 2024-09-27 13:12 | External Medical Summary | Summary of Care ---
Author Name Unknown Organization [facility] Address [address] [place] [address] Phone [phone] Care Team Providers Care Manager Government Name Role Phone Lele Alanis MD Primary Care Provider Reason for Visit * Reason Onset Date Comments Advice 08/04/2024 Call back about toe Encounter Details Date Type Department Care Team (Late st Contact Info) Description 08/04/2024 Telephone [facility] [address] [place] [address] Lele Alanis MD [address] [place] [address] Advice (Call back about toe) Allergies Active Allergy Reactions Criticality Noted Date Comments Clarithromycin 02/22/2001 n/v Metformin Low 03/25/2013 Diarrhea documented as of this encounter (statuses as of 08/04/2024) Medications Medication Sig Dispensed Refills Start Date [...] goal of less than 7.0% ([facility]) Use as directed. 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 60 Tablet 1 04/15/2024 Active Clopidogrel Bisulfate 75 MG Oral Tablet (pLAVix)Indications:A therosclerosis of [place] coronary artery of [place] heart without angina pectoris,Atherosclero sis of coronary artery bypass graft of [place] heart with angina pectoris (HCC) Take 1 Tablet by mouth in the morning. 90 Tablet 1 04/15/2024 Active Isosorbide Mononitrate ER 60 MG Oral Tablet Extended Release 24 Hour (Imdur)Indications:At herosclerosis of coronary artery bypass graft of [place] heart with angina pectoris (HCC) Take 1 Tablet by mouth in the morning. 90 Tablet 04/15/2024 Active Ranolazine ER 500 MG Oral Tablet Extended Release 12 Hour (Ranexa)Indications:D yslipidemia, goal LDL below 70,DM type 2 nursing care encounter ([facility]),Type 2 diabetes mellitus with diabetic neuropathy, without long-term current use of insulin ([facility]),Atherosclerosis of coronary artery bypass graft of [place] heart with angina pectoris ([facility]) Take 1 Tablet by mouth in the morning and 1 Tablet before bedtime. 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 90 Tablet 04/15/2024 Active Empagliflozin 25 MG Oral Tablet (Jardiance)Indication s:Type 2 diabetes mellitus with diabetic neuropathy, without long-term current use of insulin ([facility]),Atherosclerosis of coronary artery bypass graft of [place] heart with angina pectoris ([facility]) Take 1 Tablet by mouth in the morning. 90 Tablet 04/15/2024 Active Gabapentin 300 MG Oral Capsule (Neurontin)Indication s:Type 2 diabetes mellitus with diabetic neuropathy, without long-term current use of insulin ([facility]) Take 1 Capsule by mouth [...] goal of less than 7.0% ([facility]) 44 units twice daily or as directed.E11.9 75 mL 3 04/17/2024 Active hydrocortisone 1%/clotrimazole 1% 1:1 (Clotrimazole) cream APPLY TOPICALLY TO AFFECTED AREA 3 TIMES A DAY NEEDED FOR IRRITATION OR ITCHING. 180 g 1 06/17/2024 Active documented as of this encounter (statuses as of 08/04/2024) Active Problems Problem Noted Date Diagnosed Date [...] CORONARY ATHEROSCLEROSIS OF UNSPECIFIED TYPE OF VESSEL, [place] OR GRAFT documented as of this encounter (statuses as of 08/04/2024) Resolved Problems Problem Noted Date Diagnosed Date [...] Markers for Patients with Cardiovascular Disease Project #[id number] PI: Kimmie Dubon MD Please call [phone] with study related questions GENOMICS CARDIO RESEARCH OTHER*[id number] 10/14/2007 11/07/2016 Overview: Renamed Per Clinical Trials Billing Project. Study Titile: Genomic Markers for Patients with Cardiovascular Disease Project #[id number] PI: Kimmie Dubon MD Please call [phone] with study related questions Benign neoplasm of colon 09/06/2007 Overview: adenomatous polyp--repeat 5 years EXAMINATION OF PARTICIPANT IN CLINICAL TRIAL 6 01/14/2010 Overview: Renamed Per Clinical Trials Billing Project. [employer] Study # A clinical trial comparing treatment with cangrelor (in combination with usual care) to usual care, in subjects who require percutaneous coronary intervention Qualitative Researcher: Ephraim Bingham MD [phone] [employer] Clinical Trial*[id number] 08/22/2006 02/15/2016 Overview: Renamed Per Clinical Trials Billing Project. [employer] Study #[id number] A clinical trial comparing treatment with cangrelor (in combination with usual care) to usual care, in subjects who require percutaneous coronary intervention Qualitative Researcher: Ephraim Bingham MD [phone] Mixed dyslipidemia 05/30/2002 9 Overview: Per Lipid [...] as of this encounter (statuses as of 08/04/2024) Immunizations Name Administration Dates Next Due COVID-19 [...] encounter Miscellaneous Notes * Telephone Encounter - Taylor Diaz LPN - 08/04/2024 12:16 PM EST Spoke with pt and he stated she has an appointment tomorrow with Dr Mcgee * Telephone Encounter - Erica Craig OSA - 08/04/2024 9:23 AM EST Pt called in asking to have the PCP or nurse to call him back sometime today after 10am about his toe documented in this encounter Plan of Treatment Upcoming Encounters Date Type Department Care Team (Late st Contact Info) Description 08/05/2024 8:40 AM EST Office Visit [place] [address] [place] [facility] [place] [phone] [facility] [address] [facility] [address] 08/13/2024 6:20 PM EST Office Visit [facility] [address] [facility] [phone] Lele Alanis [facility] [address] [facility] [phone] 08/29/2024 8:30 AM EST Office Visit Cardiology, [address] [place] [address] Agata Saenz PA-C [address] [place] [address] 05/12/2025 10:30 AM EDT Appointment Vascular Lab [facility] [address] [place] [address] 05/12/2025 11:00 AM EDT Appointment Vascular Lab [facility] [address] [place] [address] 05/12/2025 12:45 PM EDT Office Visit Vascular Surg [facility] [address] [place] [address] Valentin Medina MD [address] [place] [address] Scheduled Procedures Name Priority Associated Diagnoses Date/Ti [...] occurred with: Not Discussed Care Teams Manager Government Relationship Specialty Start Date End Date Lele Alanis MD [address] [place] [facility] [place] [address] PCP - General Family Medicine 11/09/18 documented as of this encounter
--- OUTSIDE RECORDS SUMMARY | 2024-09-27 13:12 | External Medical Summary | Summary of Care ---
Author Name Unknown Organization [facility] Address [address] [facility] [place] [place] [address] Phone [phone] Care Team Providers Care Binding Cutter Name Role Phone Lele Alanis MD Primary Care Provider [phone] Reason for Referral * Evaluate & Treat - Unlimited Visits (Within 10 days (routine)) - Authorized Specialty Diagnoses / Procedures Referred By Michi young Referred To Contact Podiatry Diagnoses Uncontrolled type 2 diabetes mellitus with hyperglycemia (HCC) Diabetic ulcer of toe of right foot associated with type 2 diabetes mellitus, unspecified ulcer stage (HCC) Janes Mcgee MD [address] [place] [address] Referral ID Status Reason Start Date Expiration Date Visits Requested Visits Authorized [id number] Authorized Specialty Services Required 08/05/2024 999 999 [...] unspecified ulcer stage (HCC) Janes Mcgee MD [address] [place] [address] Referral ID Status Reason Start Date Expiration Date Visits Requested Visits Authorized [id number] Authorized Specialty Services Required 08/05/2024 999 999 [...] he states that fell off. Sees a pediatric clinical nurse specialist but states he wont see him for 9 weeks and he needs someone to look at his feet. Patient needs a refill for Hydrocortisone/Clotrimazole cream with refills. Encounter Details Date Type Department Care Team (Latest Contact Info) Description 08/05/2024 8:40 AM EST Office Visit [facility] [address] [place] [address] Janes Mcgee MD [address] [place], [place] [id number] Uncontrolled type 2 diabetes mellitus with hyperglycemia ([facility])*; Diabetic ulcer of toe of right foot [...] hemoglobin A1c goal of less than 7.0% ([facility]) Use as directed. 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 60 Tablet 1 04/15/2024 Active Clopidogrel Bisulfate 75 MG Oral Tablet (pLAVix)Indications:A therosclerosis of [place] coronary artery of [place] heart without angina pectoris,Atherosclero sis of coronary artery bypass graft of [place] heart with angina pectoris (HCC) Take 1 Tablet by mouth in the morning. 90 Tablet 1 04/15/2024 Active Isosorbide Mononitrate ER 60 MG Oral Tablet Extended Release 24 Hour (Imdur)Indications:At herosclerosis of coronary artery bypass graft of [place] heart with angina pectoris (HCC) Take 1 Tablet by mouth in the morning. 90 Tablet 04/15/2024 Active Ranolazine ER 500 MG Oral Tablet Extended Release 12 Hour (Ranexa)Indications:D yslipidemia, goal LDL below 70,DM type 2 nursing care encounter ([facility]),Type 2 diabetes mellitus with diabetic neuropathy, without long-term current use of insulin ([facility]),Atherosclerosis of coronary artery bypass graft of [place] heart with angina pectoris ([facility]) Take 1 Tablet by mouth in the morning and 1 Tablet before bedtime. 180 Tablet 04/15/2024 Active Rosuvastatin Calcium 40 MG Oral Tablet (Crestor)Indications: Dyslipidemia, goal LDL below 70,Atherosclerosis of coronary artery bypass graft of [place] heart with angina pectoris ([facility]) Take 1 Tablet by mouth in the morning. 90 Tablet 04/15/2024 Active Ezetimibe 10 MG Oral Tablet (Zetia)Indications:Dy slipidemia, goal LDL below 70,Atherosclerosis of coronary artery bypass graft of [place] heart with angina pectoris ([facility]) Take 1 Tablet by mouth in the morning. 90 Tablet 04/15/2024 Active Empagliflozin 25 MG Oral Tablet (Jardiance)Indication s:Type 2 diabetes mellitus with diabetic neuropathy, without long-term current use of insulin ([facility]),Atherosclerosis of coronary artery bypass graft of [place] heart with angina pectoris ([facility]) Take 1 Tablet by mouth in the morning. 90 Tablet 04/15/2024 Active Gabapentin 300 MG Oral Capsule (Neurontin)Indication s:Type 2 diabetes mellitus with diabetic neuropathy, without long-term current use of insulin ([facility]) Take 1 Capsule by mouth in the [...] hemoglobin A1c goal of less than 7.0% ([facility]) 44 units twice daily or as directed.E11.9 [...] CORONARY ATHEROSCLEROSIS OF UNSPECIFIED TYPE OF VESSEL, [place] OR GRAFT documented as of this encounter [...] Markers for Patients with Cardiovascular Disease Project #[id number] PI: Kimmie Dubon MD Please call [phone] with study related questions GENOMICS CARDIO RESEARCH OTHER*[id number] 10/14/2007 11/07/2016 Overview: Renamed Per Clinical Trials Billing Project. Study Titile: Genomic Markers for Patients with Cardiovascular Disease Project #[id number] PI: Kimmie Dubon MD Please call [phone] with study related questions Benign neoplasm of colon 09/06/2007 Overview: adenomatous polyp--repeat 5 years EXAMINATION OF PARTICIPANT IN CLINICAL TRIAL 01/14/2010 Overview: Renamed Per Clinical Trials Billing Project. [employer] Study #[id number] A clinical trial comparing treatment with cangrelor (in combination with usual care) to usual care, in subjects who require percutaneous coronary intervention Junior Systems Administrator: Ephraim Bingham MD [phone] [employer] Clinical Trial*[id number] 08/22/2006 02/15/2016 Overview: Renamed Per Clinical Trials Billing Project. [employer] Study #[id number] A clinical trial comparing treatment with cangrelor (in combination with usual care) to usual care, in subjects who require percutaneous coronary intervention Junior Systems Administrator: Ehpraim Bingham MD [phone] ADVANCE DIRECTIVE INFORMATION 04/25/2005 08/04/2024 Overview: Yes, [...] Will refer to [facility]o and podiatry [facility] for [facility]. Discussed importance of compliance with diabetes regimen. Wrap-Up Follow up as needed. History of Present Illness The patient is a 74-year-old male with past medical history of type 2 diabetes, dyslipidemia, OSKAR, history of [place] who presents for follow up. 74-year-old male [...] to see [facility] in [place] on 08/21/2024 per patient report. States that [...] note has been completed in part utilizing [employer] Speech Voice Recognition Software. Due to technical [...] he states that fell off. Sees a pediatric clinical nurse specialist but states he wont see him for 9 weeks and he needs someone to look at his feet. Patient needs a refill for Hydrocortisone/Clotrimazole cream with refills. documented in this encounter Plan of Treatment Upcoming Encounters Date Type Department Care Team (Late st Contact Info) Description 08/13/2024 6:20 PM EST Office Visit [facility] [address] [place] [address] Lele Alanis MD [address] [place] [address] 08/29/2024 8:30 AM EST Office Visit Cardiology, [facility] [address] [facility] [place] [address] Agata Saenz PA-C [address] [facility] [place] [address] 05/12/2025 10:30 AM EDT Appointment Vascular Lab [address] [address] 05/12/2025 11:00 AM EDT Appointment Vascular Lab [place] [address] [place] [address] 05/12/2025 12:45 PM EDT Office Visit Vascular Surg [place] [address] [place] [address] Valentin Medina MD [address] [place] [address] Scheduled Procedures Name Priority Associated Diagnoses Date/Ti [...] 05/16/2021 05/16/2016, 05/01, 09/06/2007 COVID-19 Vaccine ( - season) 2024 10/17/2021, 09/19/2021 Influenza Vaccine [...] Directives occurred with: Not Discussed Care Teams Binding Cutter Relationship Specialty Start Date End Date Lele Alanis MD [address] [place] [address] PCP - General Family Medicine 11/09/18 documented as of this encounter
--- OUTSIDE RECORDS SUMMARY | 2024-09-27 13:12 | External Medical Summary | Summary of Care ---
Author Name Unknown Organization [facility] Address [address] [facility] [place] [address] Phone [phone] Care Team Providers Care Parts Room Clerk Name Role Phone Lele Alanis MD Primary Care Provider [phone] Reason for Referral * Evaluate & Treat - Unlimited Visits (Within 10 days (routine)) - Authorized Specialty Diagnoses / Procedures Referred By Michi young Referred To Contact Podiatry Diagnoses Uncontrolled type 2 diabetes mellitus with hyperglycemia (HCC) Diabetic ulcer of toe of right foot associated with type 2 diabetes mellitus, unspecified ulcer stage (HCC) Janes Mcgee MD [address] [place] [address] Referral ID Status Reason Start Date Expiration Date Visits Requested Visits Authorized [id number] Authorized Specialty Services Required 08/05/2024 999 999 [...] unspecified ulcer stage (HCC) Janes Mcgee MD [address] [place] [address] Referral ID Status Reason Start Date Expiration Date Visits Requested Visits Authorized [id number] Authorized Specialty Services Required 08/05/2024 999 999 [...] he states that fell off. Sees a foot roentgenologist but states he wont see him for 9 weeks and he needs someone to look at his feet. Patient needs a refill for Hydrocortisone/Clotrimazole cream with refills. Encounter Details Date Type Department Care Team (Latest Contact Info) Description 08/05/2024 8:40 AM EST Office Visit [facility] [address] [place] [address] Janes Mcgee MD [address], [place] [id number] Uncontrolled type 2 diabetes mellitus with hyperglycemia ([facility]; Diabetic ulcer of toe of right foot [...] A1c goal of less than 7.0% ([facility]) Use as directed. Use to check blood sugars up to 4 times a day DX:E11.9 1 Kit 06/16/2019 Active Glucose Blood (ACCU-CHEK GUIDE) STRPIndications:Type 2 diabetes mellitus with hemoglobin A1c goal of less than 7.0% ([facility]) Use to check blood sugars up [...] A1c goal of less than 7.0% ([facility]) Use with Lantus solostar pen up [...] herosclerosis of coronary artery bypass graft of grindstone heart with angina pectoris (HCC) Take 37.5 mg by mouth in the morning and 37.5 mg before bedtime. 60 Tablet 1 04/15/2024 Active Clopidogrel Bisulfate 75 MG Oral Tablet (pLAVix)Indications: Atherosclerosis of grindstone coronary artery of grindstone heart without angina pectoris,Atheroscler osis of coronary artery bypass graft of grindstone heart with angina pectoris (HCC) Take 1 Tablet by mouth in the morning. 90 Tablet 1 04/15/2024 Active Isosorbide Mononitrate ER 60 MG Oral Tablet Extended Release 24 Hour (Imdur)Indications:A therosclerosis of coronary artery bypass graft of grindstone heart with angina pectoris (HCC) Take 1 Tablet by mouth in the morning. 90 Tablet 04/15/2024 Active Ranolazine ER 500 MG Oral Tablet Extended Release 12 Hour (Ranexa)Indications: Dyslipidemia, goal LDL below 70,DM type 2 nursing care encounter ([facility]),Type 2 diabetes mellitus with diabetic neuropathy, without long-term current use of insulin ([facility]),Atherosclerosi s of coronary artery bypass graft of grindstone heart with angina pectoris (HCC) Take 1 Tablet by mouth in the morning and 1 Tablet before bedtime. 180 Tablet 04/15/2024 Active Rosuvastatin Calcium 40 MG Oral Tablet (Crestor)Indications :Dyslipidemia, goal LDL below 70,Atherosclerosis of coronary artery bypass graft of grindstone heart with angina pectoris ([facility]) Take 1 Tablet by mouth in the morning. 90 Tablet 04/15/2024 Active Ezetimibe 10 MG Oral Tablet (Zetia)Indications:D yslipidemia, goal LDL below 70,Atherosclerosis of coronary artery bypass graft of grindstone heart with angina pectoris ([facility]) Take 1 Tablet by mouth in the morning. 90 Tablet 04/15/2024 Active Empagliflozin 25 MG Oral Tablet (Jardiance)Indicatio ns:Type 2 diabetes mellitus with diabetic neuropathy, without long-term current use of insulin ([facility]),Atherosclerosi s of coronary artery bypass graft of grindstone heart with angina pectoris ([facility]) Take 1 Tablet by mouth in the morning. 90 Tablet 04/15/2024 Active Gabapentin 300 MG Oral Capsule (Neurontin)Indicatio ns:Type 2 diabetes mellitus with diabetic neuropathy, without long-term current use of insulin ([facility]) Take 1 Capsule by mouth in [...] A1c goal of less than 7.0% ([facility]) 44 units twice daily or as [...] MYOCARDIAL INFARCT 04/22/2009 Overview: Modified by Acute [place] Protocol #5. 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 Study Titile: Genomic Markers for Patients with Cardiovascular Disease Project #[id number] PI: Kimmie Dubon MD Please call [phone] with study related questions Benign neoplasm of colon 09/06/2007 Overview: adenomatous polyp--repeat 5 years EXAMINATION OF PARTICIPANT IN CLINICAL TRIAL 6 01/14/2010 Overview: Renamed Per Clinical Trials Billing Project. [employer] DTS Study #[id number] A clinical trial comparing treatment with cangrelor (in combination with usual care) to usual care, in subjects who require percutaneous coronary intervention Floor Waxer: Ephraim Bingham MD [phone] [place] Clinical Trial*[id number] 08/22/2006 02/15/2016 Overview: Renamed Per Clinical Trials Billing Project. 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 Morbid obesity, BMI not known 05/30/2002 12/28/2009 Overview: Per Obesity Taxonomy F/u of anterior myocardial infarction 05/30/2002 04/22/2009 Overview: Modified by Acute [place] Protocol #5. Dyslipidemia, goal to be determined [...] Will refer to ortho and podiatry through [facility] for evaluation. Discussed importance of compliance with diabetes regimen. Wrap-Up Follow up as needed. History of Present Illness The patient is a 74-year-old male with past medical history of type 2 diabetes, dyslipidemia, OSKAR, history of [place] who presents for follow up. 74-year-old male [...] to see [facility] in [place] on 08/21/2024 per patient report. States that [...] note has been completed in part utilizing [employer] Speech Voice Recognition Software. Due to [...] he states that fell off. Sees a foot roentgenologist but states he wont see him for 9 weeks and he needs someone to look at his feet. Patient needs a refill for Hydrocortisone/Clotrimazole cream with refills. documented in this encounter Plan of Treatment Upcoming Encounters Date Type Department Care Team (Late st Contact Info) Description 08/12/2024 2:20 PM EST Office Visit Podiatry, [address] [address] Nereida Grant DPM [address] [place] [address] 08/13/2024 6:20 PM EST Office Visit [facility] [address] [place] [address] Lele Alanis MD [address] [place] [address] 08/19/2024 10:00 AM EST Office Visit Wound Care, [address] [address] Maria E Thibodeaux DPM [address] [place] [address] 08/29/2024 8:30 AM EST Office Visit Cardiology, [facility] [address] [place] [address] Agata Saenz PA-C [address] [place] [address] 05/12/2025 10:30 AM EDT Appointment Vascular Lab [address] [address] 05/12/2025 11:00 AM EDT Appointment Vascular Lab [facility] [address] [place] [address] 05/12/2025 12:45 PM EDT Office Visit Vascular Surg [facility] [address] [place] [address] Valentin Medina MD [address] [place] [address] Scheduled Procedures Name Priority Associated Diagnoses Date/Ti [...] Directives occurred with: Not Discussed Care Teams Parts Room Clerk Relationship Specialty Start Date End Date Lele Alanis MD [address] [place] [phone] PCP - General Family Medicine 11/09/18 documented as of this encounter
--- NOTE | 2024-09-27 13:18 | Emergency Department Note ---
Impression & Plan Ataxia, Bilateral carotid artery disease ED Provider Note NAME: DENICE LUCAS AGE: 74 SEX: M : 1950 ARRIVES VIA: Walk-In INFORMANT: Patient, ED PROVIDER(S): Bishop Jc DO CHIEF COMPLAINT: Ataxia HPI: The patient is a 74-year-old male who presented to the emergency department for an evaluation of ataxia. The patient states that he went to bed last evening at approximately 8 PM. He was in his normal state of health. Ever since he woke up this morning at 630 he has been unable to walk. He feels though he is off balance. The patient denies any other symptoms. He denies having any headache or unilateral weakness. He does not have a history of similar episodes in the past. He called his family doctor was referred to the emergency department. ROS: See above HPI for pertinent positives & negatives. A total of 10 systems reviewed and were otherwise negative. PAST MEDICAL HISTORY: See Below PAST SURGICAL HISTORY: See Below FAMILY HISTORY: See Below SOCIAL HISTORY: See Below HOME MEDICATIONS: See Below ALLERGIES: See Below VITALS: See Below PHYSICAL EXAMINATION: GENERAL: Patient is awake alert in no acute distress patient is resting comfortably and showing no signs of anxiety EYES: The conjunctivae are clear. The pupils are round and reactive. There was no nystagmus elicited. EARS, NOSE, MOUTH AND THROAT: The nose is without any evidence of any deformity. NECK: The neck is nontender and supple. RESPIRATORY: Normal respiratory effort is noted there is no evidence of wheezing rhonchi or rales CARDIOVASCULAR: Regular rate and rhythm noted there no murmurs rubs or gallops normal S1 normal S2. GASTROINTESTINAL: The abdomen is soft. Abdomen is nontender. MUSCULOSKELETAL/EXTREMITIES: There is no evidence of gross deformity full range of motion is noted in the hips and shoulders. SKIN: There is no obvious evidence of any rash. There are no petechiae, pallor or cyanosis noted. NEUROLOGIC: Patient is awake alert and oriented x3. [employer] Lead strength was symmetric. There was no facial droop. Speech was clear. The patient is unable to ambulate with significant ataxia falling to the right. MEDICAL DECISION MAKING: The patient is a 74-year-old male who presented to the emergency department at the request of his primary care physician for strokelike symptoms. The patient was found to be ataxic. He was severely ataxic with any type of ambulation. He had no ear complaints. He had no focal neurologic deficits otherwise. I discussed the patient's laboratory and radiographic studies with him. Given his findings on carotid artery angiography I do feel the patient would be at risk for central cause for his ataxia. For this reason I [facility] They have agreed to evaluate the patient in the emergency department for further management and disposition. Triage Nursing notes reviewed. Prior medical records reviewed Vital Signs: reviewed and remarkable for no significant abnormalities Differential diagnosis: Infection, dehydration, metabolic abnormality, hypo/hyperglycemia, electrolyte disturbance, anemia, hypoxia, cardiac sources, intracerebral event, toxicologic, neurologic, as well as other pathologies. ER treatment provided: See below Diagnostics interpreted by me: ECG: EKG was obtained in the emergency department. My interpretation is sinus rhythm at 77 bpm. PACs were noted. There was no acute ST segment abnormalities noted. This was compared to a tracing from July 01, 2024. No changes were noted. Cardiac Monitoring: An order was placed for continuous cardiac monitoring. The monitor shows a rate of 72 bpm with sinus rhythm. Laboratory studies: As stated above and show below. Imaging studies: See below. Radiographic imaging was reviewed by myself Consultation(s): I discussed this case with Kasey who [facility] Past Med/Surg History Problem List History of cerebellar stroke Uncontrolled diabetes mellitus with hyperglycemia Gait instability Bilateral carotid artery disease (Acute) Ataxia (Acute) Bradyarrhythmia Encounter for pre-operative examination Encounter for pre-operative examination CAD (coronary artery disease) (Chronic) "10/1999-N STEMI, S/P PTCA/stent to LAD 12/1999-repeat cardiac catheterization, S/P PCI/stent to RCA 08/2016-cardiac catheterization, S/P PCI/JELANI stent to RCA, PCI/stent to LAD, no in-stent restenosis of previous stents 11/2006-cardiac catheterization demonstrated diffuse disease, was referred for CABG 2007-cardiac catheterization demonstrated patent grafts and severe port graham disease 10/2012-dobutamine stress echo negative for ischemia" GERD (gastroesophageal reflux disease) (Chronic) DM type 2 (diabetes mellitus, type 2) (Chronic) IDDM Dyslipidemia (Chronic) OSKAR (obstructive sleep apnea) (Chronic) CPAP HS H/O Achilles tendon repair (Chronic) H/O vasectomy (Chronic) Medical History Pressure ulcer of left foot follows with [facility] wound clinic, no signs of infection per 07/25 note History of pneumothorax traumatic, 2019 Surgical History Hx of left cataract extraction Hx of right cataract extraction History of cardiac cath X 5-TOTAL 4 STENTS 10/1999,12/1999,11/2006,2007,08/2016 History of coronary artery bypass graft 4 VESSELS 2006-[facility] [place]-F/U DR CEHEMA History of colonoscopy Family History Other Family history non-contributory Social History Smoking Status: Never smoker Second Hand Exposure: Yes (in the past); Do You Dip or Chew Tobacco: No; Hx Alcohol Use: No Hx Substance Use: No Preferred Language: Croatian Communication Ability: Effective Radiation / Chemistry Technician Required: No Beliefs That Will Affect Care: None Current Living Situation: Spouse Feels Safe at Home: Yes Safety Concerns: Feels Safe At This Time Assistive Devices: CPAP, Denture - Upper, Denture - Lower and Glasses Allergies Allergies Allergy/AdvReac Type Severity Reaction Status Date / Time clarithromycin AdvReac Unknown nausea/vomi Verified 07/30/23 09:52 t metformin AdvReac Unknown DIARHEA Verified 07/30/23 09:52 Home Meds Home Medications Medication Instructions Recorded Confirmed aspirin 81 mg tablet,delayed 81 mg PO QAM 02/10/19 09/27/24 release (Aspir-) clopidogrel 75 mg tablet (Plavix) 75 mg PO QAM 02/10/19 09/27/24 rosuvastatin 40 mg tablet 40 mg PO QAM 02/10/19 09/27/24 ezetimibe 10 mg tablet 10 mg PO QAM 09/27/24 09/27/24 gabapentin 300 mg tablet 300 mg PO BID 09/27/24 09/27/24 insulin glargine 100 unit/mL (3 42 unit subcut BID 09/27/24 09/27/24 mL) subcutaneous pen metoprolol succinate 25 mg 25 mg PO QAM 09/27/24 09/27/24 tablet,extended release 24 hr ranolazine 500 mg tablet,extended 500 mg PO QAM 09/27/24 09/27/24 release,12 hr Results & Data (ED) Vital Signs Vital Signs - 24 hr 09/27/24 13:04 09/27/24 14:02 09/27/24 16:02 Temperature 36.8 C Temperature Source Temporal Artery Scan Pulse Rate 71 74 Pulse Rate [Apical] 72 Pulse Rhythm [Apical] Regular Respiratory Rate 20 22 Respiratory Effort / Characteristics Non-Labored Spontaneous Non-Labored Spontaneous Respiratory Depth Normal Normal Respiratory Pattern Regular Regular Blood Pressure 111/73 Blood Pressure [Right Arm] 139/64 Blood Pressure Mean 85 Blood Pressure Mean [Right Arm] 89 Blood Pressure Position [Right Arm] Lying Pulse Oximetry 95 97 Oxygen Delivery Method Room Air Room Air Sepsis Recent Fever Within 48 Hours No Sepsis New/Unexplained Change in Mental Status N/A Sepsis Action Taken by Nursing No Action Required Home Medications Current Medication List: was personally reviewed by me Laboratory Data Attestation: I reviewed the patient's lab results. 09/28/24 03:47 09/28/24 03:47 Lab Results 09/27/24 09/27/24 09/27/24 Range/Units 13:15 13:24 15:18 WBC 5.22 (4.8-10.8) K/ul RBC 5.04 (4.70-6.10) M/uL Hgb 15.1 (14.0-18.0) g/dl POC Hgb 15.3 (14.0-18.0) g/dl Hct 44.2 (42.0-52.0) % POC Hct 45 (42-52) % MCV 87.7 (80.0-100.0) fL MCH 30.0 (25.0-34.0) pg MCHC 34.2 (32.0-36.0) g/dL RDW Std Deviation 41.7 (36.4-46.3) fL RDW Coeff of Ashwini 13.1 (11.5-14.5) % Plt Count 162 (130-400) K/uL MPV 10.1 (9.4-12.4) fL Immature Gran % (Auto) 0.2 % Neut % (Auto) 68.8 % Lymph % (Auto) 22.4 % [place] % (Auto) 6.9 % Eos % (Auto) 1.3 % Baso % (Auto) 0.4 % Neut # (Auto) 3.59 (1.40-6.50) K/uL Lymph # (Auto) 1.17 L (1.20-3.40) K/uL [place] # (Auto) 0.36 (0.11-0.59) K/uL Eos # (Auto) 0.07 (0.00-0.50) K/uL Baso # (Auto) 0.02 (0.00-0.20) K/uL Immature Gran # (Auto) 0.01 (0.01-0.20) K/uL PT 10.1 (9.0-12.0) Seconds INR 0.9 (0.9-1.1) APTT 25 (21-31) Seconds PTT Ratio 0.9 POC Sodium 139 (135-144) mmol/L Sodium 138 (136-145) mmol/L POC Potassium 4.5 (3.3-5.0) mmol/L Potassium 5.0 (3.5-5.1) mmol/L POC Chloride 102 (101-112) mmol/L Chloride 102 (98-107) mmol/L Carbon Dioxide 29 (21-32) mmol/L POC Total CO2 26 (24-31) mmol/L Anion Gap 7 (3-11) POC Anion Gap 15.0 L (16-25) mmol/L POC BUN 14 (7-18) mg/dl BUN 15 (6-23) mg/dl Creatinine 1.08 (0.6-1.4) mg/dl POC Creatinine 1.0 (0.6-1.3) mg/dl Est Cr Clr Drug Dosing Not Reportable eGFR 72.91 BUN/Creatinine Ratio 13.9 (10-20) Glucose 492 H* (70-99(Fasting)) mg/dl POC Glucose (70-99) mg/dl POC Glucose (other) 454 H* (70-99) mg/dl Calcium 8.9 (8.6-10.3) mg/dl POC Ioniz Calcium Edmund 1.15 (1.12-1.32) mmol/l Magnesium 2.3 (1.7-2.4) mg/dl Total Bilirubin 0.6 (0.2-1.0) mg/dl AST 20 (13-39) U/L ALT 14 (7-52) U/L Alkaline Phosphatase 81 (34-104) U/L Troponin I High Sens 5.0 (0-20) pg/ml Total Protein 7.1 (6.0-8.3) gm/dl Albumin 4.1 (3.4-5.0) gm/dl Globulin 3.0 (2.5-4.0) gm/dl Albumin/Globulin Ratio 1.4 (0.9-2) Urine Color Yellow Urine Appearance Clear (Clear) Urine pH 5.0 (4.5-7.5) Ur Specific Mer[place]old 1.034 H (1.000-1.030) Urine Protein Negative (Negative) Urine Glucose (UA) 3+ H (Negative) Urine Ketones Negative (Negative) Urine Blood Negative (Negative) Urine Nitrite Negative (Negative) Urine Bilirubin Negative (Negative) Urine Urobilinogen Negative (Negative) Ur Leukocyte Esterase Negative (Negative) 09/27/24 Range/Units 15:55 WBC (4.8-10.8) K/ul RBC (4.70-6.10) M/uL Hgb (14.0-18.0) g/dl POC Hgb (14.0-18.0) g/dl Hct (42.0-52.0) % POC Hct (42-52) % MCV (80.0-100.0) fL MCH (25.0-34.0) pg MCHC (32.0-36.0) g/dL RDW Std Deviation (36.4-46.3) fL RDW Coeff of Ashwini (11.5-14.5) % Plt Count (130-400) K/uL MPV (9.4-12.4) fL Immature Gran % (Auto) % Neut % (Auto) % Lymph % (Auto) % [place] % (Auto) % Eos % (Auto) % Baso % (Auto) % Neut # (Auto) (1.40-6.50) K/uL Lymph # (Auto) (1.20-3.40) K/uL [place] # (Auto) (0.11-0.59) K/uL Eos # (Auto) (0.00-0.50) K/uL Baso # (Auto) (0.00-0.20) K/uL Immature Gran # (Auto) (0.01-0.20) K/uL PT (9.0-12.0) Seconds INR (0.9-1.1) APTT (21-31) Seconds PTT Ratio POC Sodium (135-144) mmol/L Sodium (136-145) mmol/L POC Potassium (3.3-5.0) mmol/L Potassium (3.5-5.1) mmol/L POC Chloride (101-112) mmol/L Chloride (98-107) mmol/L Carbon Dioxide (21-32) mmol/L POC Total CO2 (24-31) mmol/L Anion Gap (3-11) POC Anion Gap (16-25) mmol/L POC BUN (7-18) mg/dl BUN (6-23) mg/dl Creatinine (0.6-1.4) mg/dl POC Creatinine (0.6-1.3) mg/dl Est Cr Clr Drug Dosing eGFR BUN/Creatinine Ratio (10-20) Glucose (70-99(Fasting)) mg/dl POC Glucose 289 H (70-99) mg/dl POC Glucose (other) (70-99) mg/dl Calcium (8.6-10.3) mg/dl POC Ioniz Calcium Edmund (1.12-1.32) mmol/l Magnesium (1.7-2.4) mg/dl Total Bilirubin (0.2-1.0) mg/dl AST (13-39) U/L ALT (7-52) U/L Alkaline Phosphatase (34-104) U/L Troponin I High Sens (0-20) pg/ml Total Protein (6.0-8.3) gm/dl Albumin (3.4-5.0) gm/dl Globulin (2.5-4.0) gm/dl Albumin/Globulin Ratio (0.9-2) Urine Color Urine Appearance (Clear) Urine pH (4.5-7.5) Ur Specific Mer[place]old (1.000-1.030) Urine Protein (Negative) Urine Glucose (UA) (Negative) Urine Ketones (Negative) Urine Blood (Negative) Urine Nitrite (Negative) Urine Bilirubin (Negative) Urine Urobilinogen (Negative) Ur Leukocyte Esterase (Negative) Administered Medications Acetaminophen (Acetaminophen 325 Mg Tab) 650 mg PO Q4H PRN PRN Reason: Pain or Fever Stop: 10/27/24 18:04 Last Admin: 09/28/24 08:03 Dose: 650 mg Documented By: Admin: 09/28/24 02:16 Dose: 650 mg Documented By: Admin: 09/27/24 18:22 Dose: 650 mg Documented By: JELANI Aspirin (Aspirin 81 Mg Ectab) 81 mg PO [facility] Stop: 10/28/24 08:59 Last Admin: 09/28/24 08:03 Dose: 81 mg Documented By: JELANI Clopidogrel Bisulfate (Clopidogrel Bisulfate 75 Mg Tab) 75 mg PO [facility] Stop: 10/28/24 08:59 Last Admin: 09/28/24 08:03 Dose: 75 mg Documented By: JELANI Ezetimibe (Ezetimibe 10 Mg Tab) 10 mg PO [facility] Stop: 10/28/24 08:59 Last Admin: 09/28/24 08:03 Dose: 10 mg Documented By: JELANI Gabapentin (Gabapentin 300 Mg Cap) 300 mg PO BID [facility] Stop: 10/27/24 20:59 Last Admin: 09/28/24 08:03 Dose: 300 mg Documented By: Admin: 09/27/24 21:06 Dose: 300 mg Documented By: KELLEN Insulin Aspart (Insulin Aspart Per Unit Charge) 0 units SC ACHS [facility] Stop: 10/27/24 20:59 Last Admin: 09/28/24 08:39 Dose: 9 units Documented By: JELANI Co-signed By: RADHAMES Admin: 09/28/24 00:13 Dose: 1 units Documented By: KELLEN Co-signed By: GRACIELA Insulin Glargine (Lantus Per Unit Charge) 20 units SQ BID [facility] Stop: 10/28/24 08:59 Last Admin: 09/28/24 08:39 Dose: 20 units Documented By: JELANI Co-signed By: RADHAMES Metoprolol Succinate (Metoprolol Succ 25mg Ext Rel Tab) 25 mg PO [facility] Stop: 10/28/24 08:59 Last Admin: 09/28/24 08:03 Dose: 25 mg Documented By: JELANI Ranolazine (Ranolazine 500 Mg Er Tab) 500 mg PO [facility] Stop: 10/28/24 08:59 Last Admin: 12/29/24 08:03 Dose: 500 mg Documented By: JELANI Rosuvastatin Calcium (Rosuvastatin Calcium 20 Mg Tab) 40 mg PO QAM JOIE Stop: 10/28/24 08:59 Last Admin: 09/28/24 08:03 Dose: 40 mg Documented By: JELANI Discontinued Medications Insulin Aspart (Insulin Aspart Per Unit Charge) 0 units SC ONE ONE Stop: 09/27/24 19:31 Last Admin: 09/27/24 21:17 Dose: 14 units Documented By: KELLEN Co-signed By: GRACIELA Insulin Glargine (Lantus Per Unit Charge) 40 units SQ ONE ONE Stop: 09/27/24 21:16 Last Admin: 09/27/24 21:17 Dose: 40 units Documented By: KELLEN Co-signed By: GRACIELA Insulin Human Regular (Novolin-R Insulin Per Unit Charge) 6 units IV NOW STA Stop: 09/27/24 14:46 Last Admin: 09/27/24 15:52 Dose: 6 units Documented By: ADAM Co-signed By: NOLA Ioversol (Optiray 320 125ml) 112 ml IV ONCE ONE Stop: 09/27/24 13:32 Last Admin: 09/27/24 13:31 Dose: 112 ml Documented By: CAROLYNN Imaging Data Attestation: I personally reviewed and interpreted this imaging study as follows: My Impression: 1 view chest x-ray was obtained in the emergency department. My interpretation is no free air or definite infiltrate, final report below. CT of the brain was obtained in the emergency department. My interpretation is no intracranial hemorrhage or mass effect, final report below. Radiologist's Impression: Chest X-Ray 09/27/24 13:11 XR chest 1V portable CLINICAL HISTORY: neuro deficit, acute stroke suspected TECHNIQUE: Single frontal radiograph of the chest was obtained. Comparison: Comparison is made to chest radiograph 07/01/2024 FINDINGS: Median sternotomy wires are unchanged. Calcified aortic knob is seen. The lungs are clear. No evidence of pleural effusion or pneumothorax. IMPRESSION: No acute chest disease. ACT 112: Negative or not required by law. Electronically signed by: Jesús Steele M.D. 09/27/2024 2:[address] 09/27/24 13:11 CT angio neck with con, CT head/brain wo con, CT angio head w con CLINICAL HISTORY: neuro deficit, acute stroke suspected TECHNIQUE: Contiguous axial CT images of the head were acquired from the base of the skull to the vertex without intravenous contrast administration. CT angiography of the head and neck was performed following intravenous administration of iodinated contrast. Coronal and sagittal MIPS were obtained from the axial data set and were submitted for review. Automated dose lowering techniques and/or adjustment according to patient size were utilized for this examination. All measurements were calculated based on NASCET criteria. CT DOSE: 1145.83 mGy.cm Comparison: None available at the time of this dictation. FINDINGS: CT head: There is no acute intracranial hemorrhage or evidence of acute territorial infarction. No shift of the midline structures, mass effect, or extra-axial abnormalities are shown. Lungs and soft tissues are unremarkable. CTA Neck: A 3 vessel aortic arch is shown. There is no significant atherosclerotic plaque in the aortic arch or the origins of the innominate, left common carotid, and left subclavian arteries. There is approximately 60% stenosis of the left internal carotid artery owing to atherosclerosis at the carotid bifurcation. There is approximately 80% stenosis in the right internal carotid artery at the bifurcation. The vertebral arteries are codominant. CTA Head: The anterior and posterior cerebral circulations are patent. No hemodynamically significant stenosis, aneurysm, dissection, or arteriovenous malformation is shown. IMPRESSION: 1. No acute intracranial hemorrhage, evidence of acute territorial infarction, or other acute intracranial disease process. 2. 80% right and 60% left carotid artery stenosis is seen, likely on a chronic basis 3. No occlusion, hemodynamically significant stenosis, aneurysm, dissection, or arteriovenous malformation in the major intracranial arteries. Assessment of stenosis of the internal carotid arteries is based on NASCET criteria. ACT 112: Negative or not required by law. Electronically signed by: Jesús Steele M.D. 09/27/2024 2:44 PM Head CTA 09/27/24 13:11 CT angio neck with con, CT head/brain wo con, CT angio head w con CLINICAL HISTORY: neuro deficit, acute stroke suspected TECHNIQUE: Contiguous axial CT images of the head were acquired from the base of the skull to the vertex without intravenous contrast administration. CT angiography of the head and neck was performed following intravenous administration of iodinated contrast. Coronal and sagittal MIPS were obtained from the axial data set and were submitted for review. Automated dose lowering techniques and/or adjustment according to patient size were utilized for this examination. All measurements were calculated based on NASCET criteria. CT DOSE: 1145.83 mGy.cm Comparison: None available at the time of this dictation. FINDINGS: CT head: There is no acute intracranial hemorrhage or evidence of acute territorial infarction. No shift of the midline structures, mass effect, or extra-axial abnormalities are shown. Lungs and soft tissues are unremarkable. CTA Neck: A 3 vessel aortic arch is shown. There is no significant atherosclerotic plaque in the aortic arch or the origins of the innominate, left common carotid, and left subclavian arteries. There is approximately 60% stenosis of the left internal carotid artery owing to atherosclerosis at the carotid bifurcation. There is approximately 80% stenosis in the right internal carotid artery at the bifurcation. The vertebral arteries are codominant. CTA Head: The anterior and posterior cerebral circulations are patent. No hemodynamically significant stenosis, aneurysm, dissection, or arteriovenous malformation is shown. IMPRESSION: 1. No acute intracranial hemorrhage, evidence of acute territorial infarction, or other acute intracranial disease process. 2. 80% right and 60% left carotid artery stenosis is seen, likely on a chronic basis 3. No occlusion, hemodynamically significant stenosis, aneurysm, dissection, or arteriovenous malformation in the major intracranial arteries. Assessment of stenosis of the internal carotid arteries is based on NASCET criteria. ACT 112: Negative or not required by law. Electronically signed by: Jesús Steele M.D. 09/27/2024 2:44 PM Neck CTA 09/27/24 13:11 CT angio neck with con, CT head/brain wo con, CT angio head w con CLINICAL HISTORY: neuro deficit, acute stroke suspected TECHNIQUE: Contiguous axial CT images of the head were acquired from the base of the skull to the vertex without intravenous contrast administration. CT angiography of the head and neck was performed following intravenous administration of iodinated contrast. Coronal and sagittal MIPS were obtained from the axial data set and were submitted for review. Automated dose lowering techniques and/or adjustment according to patient size were utilized for this examination. All measurements were calculated based on NASCET criteria. CT DOSE: 1145.83 mGy.cm Comparison: None available at the time of this dictation. FINDINGS: CT head: There is no acute intracranial hemorrhage or evidence of acute territorial infarction. No shift of the midline structures, mass effect, or extra-axial abnormalities are shown. Lungs and soft tissues are unremarkable. CTA Neck: A 3 vessel aortic arch is shown. There is no significant atherosclerotic plaque in the aortic arch or the origins of the innominate, left common carotid, and left subclavian arteries. There is approximately 60% stenosis of the left internal carotid artery owing to atherosclerosis at the carotid bifurcation. There is approximately 80% stenosis in the right internal carotid artery at the bifurcation. The vertebral arteries are codominant. CTA Head: The anterior and posterior cerebral circulations are patent. No hemodynamically significant stenosis, aneurysm, dissection, or arteriovenous malformation is shown. IMPRESSION: 1. No acute intracranial hemorrhage, evidence of acute territorial infarction, or other acute intracranial disease process. 2. 80% right and 60% left carotid artery stenosis is seen, likely on a chronic basis 3. No occlusion, hemodynamically significant stenosis, aneurysm, dissection, or arteriovenous malformation in the major intracranial arteries. Assessment of stenosis of the internal carotid arteries is based on NASCET criteria. ACT 112: Negative or not required by law. Electronically signed by: Jesús Steele M.D. 09/27/2024 2:44 PM Discharge Plan Visit Data Chief Complaint: Neuro Symptoms/Deficit Stated Complaint: CAN'T WALK, "I WALK LIKE A DRUNK", REF BY DOC ED Provider: Bishop Jc Discharge Problem: Ataxia, Bilateral carotid artery disease Patient Disposition: Admitted As Inpatient Discharge Instructions Interventions: ED Discharge Assessment Last Done: 09/27/24 18:03 Discharge Problem: Bilateral carotid artery disease Qualifiers: Carotid artery disease type: unspecified Qualified Code(s): I77.9 - Disorder of arteries and arterioles, unspecified
[2024-09-27] MEDS: OPTIRAY 320 125ml IV ONE (13:31)
[2024-09-27 13:36] LABS: iSTAT Hemoglobin 15.3 g/dl (14.0-18.0); iSTAT Ionized Calcium 1.15 mmol/l (1.12-1.32); iSTAT Potassium 4.5 mmol/L (3.3-5.0)
[2024-09-27 13:37] LABS: Basophils # (auto) 0.02 K/uL (0.00-0.20); Basophils % (auto) 0.4 %; Eosinophils # (auto) 0.07 K/uL (0.00-0.50); Eosinophils % (auto) 1.3 %; Hematocrit (blood only) 44.2 % (42.0-52.0); Hemoglobin 15.1 g/dl (14.0-18.0); Immature Granulocytes # (auto) 0.01 K/uL (0.01-0.20); Immature Granulocytes % (auto) 0.2 %; Lymphocytes # (auto) 1.17 K/uL (1.20-3.40); Lymphocytes % (auto) 22.4 %; Mean Corpuscular Hgb Conc 34.2 g/dL (32.0-36.0); Mean Corpuscular Volume 87.7 fL (80.0-100.0); Mean Platelet Volume 10.1 fL (9.4-12.4); Monocytes # (auto) 0.36 K/uL (0.11-0.59); Monocytes % (auto) 6.9 %; Neutrophils # (auto) 3.59 K/uL (1.40-6.50); Neutrophils % (auto) 68.8 %; Platelet Count 162 K/uL (130-400); RDW Coefficient of Variation 13.1 % (11.5-14.5); RDW Standard Deviation 41.7 fL (36.4-46.3); Red Blood Count 5.04 M/uL (4.70-6.10); White Blood Count 5.22 K/ul (4.8-10.8)
[2024-09-27 14:01] LABS: Albumin Level 4.1 gm/dl (3.4-5.0); Anion Gap 7 (3-11); Bilirubin,Total 0.6 mg/dl (0.2-1.0); Calcium 8.9 mg/dl (8.6-10.3); Carbon Dioxide 29 mmol/L (21-32); Chloride 102 mmol/L (98-107); Magnesium 2.3 mg/dl (1.7-2.4); Sodium 138 mmol/L (136-145)
[2024-09-27 14:04] LABS: INR 0.9 (0.9-1.1); Partial Thromboplastin Ratio 0.9; Partial Thromboplastin Time 25 Seconds (21-31); Prothrombin Time 10.1 Seconds (9.0-12.0)
[2024-09-27 14:10] LABS: Alanine Aminotransferase 14 U/L (7-52); Albumin Globulin Ratio 1.4 (0.9-2); Alkaline Phosphatase 81 U/L (34-104); Aspartate Aminotransferase 20 U/L (13-39); BUN Creatinine Ratio 13.9 (10-20); Blood Urea Nitrogen 15 mg/dl (6-23); Glucose 492 mg/dl (70-99(Fasting)); Total Protein 7.1 gm/dl (6.0-8.3)
--- NOTE | 2024-09-27 14:35 | XRay Report ---
XR chest 1V portable CLINICAL HISTORY: neuro deficit, acute stroke suspected TECHNIQUE: Single frontal radiograph of the chest was obtained. Comparison: Comparison is made to chest radiograph 07/01/2024 FINDINGS: Median sternotomy wires are unchanged. Calcified aortic knob is seen. The lungs are clear. No evidenc e of pleural effusion or pneumothorax. IMPRESSION: No acute chest disease. ACT 112: Negative or not required by law. Electronically signed by: Jesús Steele M.D. 09/27/2024 2:33 PM
--- NOTE | 2024-09-27 14:46 | CT Scan Report ---
CT angio neck with con, CT head/brain wo con, CT angio head w con CLINICAL HISTORY: neuro deficit, acute stroke suspected TECHNIQUE: Contiguous axial CT images of the head were acquired from the base of the skull to the markell ally without intravenous contrast administration. CT angiography of the head and neck was performed f ollowing intravenous administration of iodinated contrast. Coronal and sagittal MIPS were obtained fr om the axial data set and were submitted for review. Automated dose lowering techniques and/or adjus tment according to patient size were utilized for this examination. All measurements were calculated based on NASCET criteria. CT DOSE: 1145.83 mGy.cm Comparison: None available at the time of this dictation. FINDINGS: CT head: There is no acute intracranial hemorrhage or evidence of acute territorial infarction. No sh ift of the midline structures, mass effect, or extra-axial abnormalities are shown. Lungs and soft tissues are unremarkable. CTA Neck: A 3 vessel aortic arch is shown. There is no significant atherosclerotic plaque in the aor tic arch or the origins of the innominate, left common carotid, and left subclavian arteries. There is approximately 60% stenosis of the left internal carotid artery owing to atherosclerosis at the car otid bifurcation. There is approximately 80% stenosis in the right internal carotid artery at the bif urcation. The vertebral arteries are codominant. CTA Head: The anterior and posterior cerebral circulations are patent. No hemodynamically significan t stenosis, aneurysm, dissection, or arteriovenous malformation is shown. IMPRESSION: 1. No acute intracranial hemorrhage, evidence of acute territorial infarction, or other acute intrac ranial disease process. 2. 80% right and 60% left carotid artery stenosis is seen, likely on a chronic basis 3. No occlusion, hemodynamically significant stenosis, aneurysm, dissection, or arteriovenous malfor mation in the major intracranial arteries. Assessment of stenosis of the internal carotid arteries is based on NASCET criteria. ACT 112: Negative or not required by law. Electronically signed by: Jesús Steele M.D. 09/27/2024 2:44 PM
--- NOTE | 2024-09-27 15:28 | History & Physical Report ---
Date of Service September 27, 2024 Assessment & Plan (1) Ataxia: (2) Uncontrolled diabetes mellitus with hyperglycemia: (3) History of cerebellar stroke: Plan Rm Rothman is a 74-year-old male with past medical history significant for uncontrolled DM type II, diabetic polyneuropathy, dyslipidemia, diabetic retinopathy of both eyes without macular edema, OSKAR on CPAP, severe CAD s/p CABG x 4 in 2006 + multiple coronary interventions, history of CO, peripheral vascular disease, chronic ischemic heart disease, bilateral carotid artery stenosis, history of cerebellar infarctions, history of NSVT, vitamin D deficiency and history of second left toe partial amputation secondary to osteomyelitis who presented to the ED on 09/27/2024 secondary to ataxia. History as per HPI. Ataxia, C/F Possible Acute CVA Chronic Bilateral Carotid Artery Stenosis: Initial laboratory evaluation unremarkable except for hyperglycemia as mentioned below. CXR negative. Head CT negative. Head CTA unremarkable. Neck CTA noted 80% right and 60% left carotid artery stenosis which is chronic per chart review. Patient has already been evaluated by [facility] as an outpatient - recommended medical management rather than surgical intervention back in May 2024. Will proceed with stroke workup including brain MRI and resting echocardiogram. Check lipid panel in the AM. Neurology consult pending. PT/OT evaluations ordered. Continue neurochecks Q2H. Already on DAPT - continue. Aspiration and fall precautions on board. Hyperglycemia, Uncontrolled DM Type II: BSG 454 on presentation. Was administered 6U of Novolin-R in the ED, BSG improved to 217. Patient with history of poorly controlled DM type II; recent Hgb A1c was 10.7% approximately 3 weeks ago. He is currently on 42U insulin glargine BID and no other diabetic medications. Patient endorses poor BSG monitoring at home. Basal/bolus regimen ordered. Glycemic pharmacy consulted for assistance with insulin management. ict educator also consulted. Continue BSG checks ACHS. H/O Cerebellar Infarctions: Appears from chart review the patient had previously been complaining of episodic lightheadedness/altered gait in the spring however he denies this during our conversation. Patient follows with [facility] [Abigail Pierre PA-C] as an outpatient. Patient had a previous brain MRI in March 2024 that revealed findings suggestive of acute on chronic small right cerebellar infarcts. 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 Currently on DAPT - continue. There is certainly question as to whether or not these known cerebellar infarctions are the primary cause of his ataxia vs the possibility of an acute CVA - further workup pending as per above. Other Chronic Medical Conditions: * Diabetic Polyneuropathy - Continue gabapentin. OSKAR - Continue CPAP HS. * HTN - Appears controlled, continue metoprolol succinate. HLD/Severe CAD - Continue DAPT as per above, ezetimibe and ranolazine. DVT Prophylaxis: SCDs/TEDs for now. Code Status: FULL CODE PCP: Lele Alanis MD Disposition: Observation in PCU/Telemetry for further inpatient evaluation. Patient seen in collaboration with Dr. Horner. Please see addendum. I spent a total of 65 minutes coordinating, documenting, and providing care for this patient excluding time spent in the performance of separately billed services. This included personally reviewing all current laboratories and imaging studies, medical reconciliation, outpatient chart review and discussion with specialists. This chart was completed in part utilizing Speech Voice Recognition Software. Grammatical errors, random word insertions, pronoun errors, and incomplete sentences are an occasional consequence of this system due to software limitations, ambient noise, and hardware issues. Any formal questions or concerns about the content, text, or information contained within the body of this dictation should be directly addressed to the provider for clarification. History of Present Illness Chief Complaint: Gait Instability/Ataxia Primary Care Provider: Lele Alanis MD Rm Rothman is a 74-year-old male with past medical history significant for uncontrolled DM type II, diabetic polyneuropathy, dyslipidemia, diabetic retinopathy of both eyes without macular edema, OSKAR on CPAP, severe CAD s/p CABG x 4 in 2006 + multiple coronary interventions, history of CO, peripheral vascular disease, chronic ischemic heart disease, bilateral carotid artery stenosis, history of cerebellar infarctions, history of NSVT, vitamin D deficiency and history of second left toe partial amputation secondary to osteomyelitis who presented to the ED on 09/27/2024 secondary to ataxia. History obtained from the patient, at bedside and associated chart review. Patient reports that he woke up this morning and was unable to walk appropriately. Mentions he was feeling completely fine and was in his normal state of health when he went to bed last evening around 8PM. States he feels as if he is "off balance" and lacks any sense of coordination. No falls or trauma at home. He denies any dizziness, lightheadedness, headache or visual disturbances. reports that he has not exhibited any other focal deficits such as speech difficulty, facial drooping or weakness/loss of strength in his extremities. Patient denies ever experiencing an event like this in the past. Patient got up to use the restroom while in the ED and required significant assistance from nursing staff whilst doing so as a result of his ataxia. He denies any chest pain, shortness of breath, fevers/chills or urinary/bowel habit changes. CXR was unremarkable. Head CT without any evidence of acute intracranial abnormalities. Head CTA was also unremarkable. Neck CTA noted chronic right (80%) and left (60%) carotid artery stenosis. Allergies Allergy/AdvReac Type Severity Reaction Status Date / Time clarithromycin AdvReac Unknown nausea/vomi Verified 07/30/23 09:52 t metformin AdvReac Unknown DIARHEA Verified 07/30/23 09:52 Home Medications Medication Instructions Recorded Confirmed Type aspirin 81 mg tablet,delayed 81 mg PO QAM 02/10/19 09/27/24 History release (Aspir-) clopidogrel 75 mg tablet (Plavix) 75 mg PO QAM 02/10/19 09/27/24 History rosuvastatin 40 mg tablet 40 mg PO QAM 02/10/19 09/27/24 History ezetimibe 10 mg tablet 10 mg PO QAM 09/27/24 09/27/24 History gabapentin 300 mg tablet 300 mg PO BID 09/27/24 09/27/24 History insulin glargine 100 unit/mL (3 42 unit subcut BID 09/27/24 09/27/24 History mL) subcutaneous pen metoprolol succinate 25 mg 25 mg PO QAM 09/27/24 09/27/24 History tablet,extended release 24 hr ranolazine 500 mg tablet,extended 500 mg PO QAM 09/27/24 09/27/24 History release,12 hr Past Med/Surg History Problem List History of cerebellar stroke Uncontrolled diabetes mellitus with hyperglycemia Gait instability Bilateral carotid artery disease (Acute) Ataxia (Acute) Bradyarrhythmia Encounter for pre-operative examination Encounter for pre-operative examination CAD (coronary artery disease) (Chronic) "10/1999-N STEMI, S/P PTCA/stent to LAD 12/1999-repeat cardiac catheterization, S/P PCI/stent to RCA 08/2016-cardiac catheterization, S/P PCI/JELANI stent to RCA, PCI/stent to LAD, no in-stent restenosis of previous stents 11/2006-cardiac catheterization demonstrated diffuse disease, was referred for CABG 2007-cardiac catheterization demonstrated patent grafts and severe [place] disease 10/2012-dobutamine stress echo negative for ischemia" GERD (gastroesophageal reflux disease) (Chronic) DM type 2 (diabetes mellitus, type 2) (Chronic) IDDM Dyslipidemia (Chronic) OSKAR (obstructive sleep apnea) (Chronic) CPAP HS H/O Achilles tendon repair (Chronic) H/O vasectomy (Chronic) Medical History Pressure ulcer of left foot follows with [facility] wound clinic, no signs of infection per 07/25 note History of pneumothorax traumatic, 2019 Surgical History Hx of left cataract extraction Hx of right cataract extraction History of cardiac cath X 5-TOTAL 4 STENTS 10/1999,12/1999,11/2006,2007,08/2016 History of coronary artery bypass graft 4 VESSELS 2006-[facility] – [place]-F/U DR CHEEMA History of colonoscopy Family History Other Family history non-contributory Social History Smoking Status: Never smoker Second Hand Exposure: Yes (in the past); Do You Dip or Chew Tobacco: No; Hx Alcohol Use: No Hx Substance Use: No Preferred Language: Setswana Communication Ability: Effective [employer] Inspector Required: No Beliefs That Will Affect Care: None Current Living Situation: Spouse Feels Safe at Home: Yes Safety Concerns: Feels Safe At This Time Assistive Devices: CPAP, Denture - Upper, Denture - Lower and Glasses Review of Systems Review of Systems: At least ten systems reviewed and negative, except as noted in the HPI. Physical Exam Physical Exam: General: Vitals as above, NAD, laying down in bed, conversing appropriately. at beside. A+Ox3, euthymic affect. HEENT: Normocephalic, atraumatic. Conjunctivae normal. External ear and nose normal, oropharynx normal. Respiratory: Normal respiratory effort, lungs clear to auscultation, no wheeze/rales/rhonchi. No accessory muscle use. Cardiovascular: Regular rate, rhythm, normal peripheral pulses, no BLE edema. Vessels: No JVD. Abdomen/GI: Normal bowel sounds, soft, nondistended nontender to palpation in all quadrants. Extremities/Musculoskeletal: Extremity motor strength intact (5/5 throughout), did not visualize gait, able to lift BUE/BLE off bed. Neurologic: No facial drooping or speech difficulties, mentation normal, CN's II-XI not formally tested but appear grossly intact bilaterally. Results & Data Results & Data Vital Signs (Past 12 Hours) Vital Signs Temp Pulse Resp BP Pulse Ox O2 Del Method 09/27/24 14:02 74 09/27/24 13:04 36.8 C 71 20 111/73 95 Room Air Laboratory Results Short CBC 09/27/24 Range/Units 13:15 WBC 5.22 (4.8-10.8) K/ul Hgb 15.1 (14.0-18.0) g/dl Hct 44.2 (42.0-52.0) % Plt Count 162 (130-400) K/uL BMP 09/27/24 13:15 Sodium 138 Potassium 5.0 Chloride 102 Carbon Dioxide 29 BUN 15 Creatinine 1.08 Glucose 492 H* Calcium 8.9 Liver Function 09/27/24 Range/Units 13:15 Total Bilirubin 0.6 (0.2-1.0) mg/dl AST 20 (13-39) U/L ALT 14 (7-52) U/L Alkaline Phosphatase 81 (34-104) U/L Albumin 4.1 (3.4-5.0) gm/dl Diagnostic Findings Chest X-Ray 09/27/24 13:11 XR chest 1V portable CLINICAL HISTORY: neuro deficit, acute stroke suspected TECHNIQUE: Single frontal radiograph of the chest was obtained. Comparison: Comparison is made to chest radiograph 07/01/2024 FINDINGS: Median sternotomy wires are unchanged. Calcified aortic knob is seen. The lungs are clear. No evidence of pleural effusion or pneumothorax. IMPRESSION: No acute chest disease. ACT 112: Negative or not required by law. Electronically signed by: Jesús Steele M.D. 09/27/2024 2:[address] 09/27/24 13:11 CT angio neck with con, CT head/brain wo con, CT angio head w con CLINICAL HISTORY: neuro deficit, acute stroke suspected TECHNIQUE: Contiguous axial CT images of the head were acquired from the base of the skull to the vertex without intravenous contrast administration. CT angiography of the head and neck was performed following intravenous administration of iodinated contrast. Coronal and sagittal MIPS were obtained from the axial data set and were submitted for review. Automated dose lowering techniques and/or adjustment according to patient size were utilized for this examination. All measurements were calculated based on NASCET criteria. CT DOSE: 1145.83 mGy.cm Comparison: None available at the time of this dictation. FINDINGS: CT head: There is no acute intracranial hemorrhage or evidence of acute territorial infarction. No shift of the midline structures, mass effect, or extra-axial abnormalities are shown. Lungs and soft tissues are unremarkable. CTA Neck: A 3 vessel aortic arch is shown. There is no significant atherosclerotic plaque in the aortic arch or the origins of the innominate, left common carotid, and left subclavian arteries. There is approximately 60% stenosis of the left internal carotid artery owing to atherosclerosis at the carotid bifurcation. There is approximately 80% stenosis in the right internal carotid artery at the bifurcation. The vertebral arteries are codominant. CTA Head: The anterior and posterior cerebral circulations are patent. No hemodynamically significant stenosis, aneurysm, dissection, or arteriovenous malformation is shown. IMPRESSION: 1. No acute intracranial hemorrhage, evidence of acute territorial infarction, or other acute intracranial disease process. 2. 80% right and 60% left carotid artery stenosis is seen, likely on a chronic basis 3. No occlusion, hemodynamically significant stenosis, aneurysm, dissection, or arteriovenous malformation in the major intracranial arteries. Assessment of stenosis of the internal carotid arteries is based on NASCET criteria. ACT 112: Negative or not required by law. Electronically signed by: Jesús Steele M.D. 09/27/2024 2:44 PM Head CTA 09/27/24 13:11 CT angio neck with con, CT head/brain wo con, CT angio head w con CLINICAL HISTORY: neuro deficit, acute stroke suspected TECHNIQUE: Contiguous axial CT images of the head were acquired from the base of the skull to the vertex without intravenous contrast administration. CT angiography of the head and neck was performed following intravenous administration of iodinated contrast. Coronal and sagittal MIPS were obtained from the axial data set and were submitted for review. Automated dose lowering techniques and/or adjustment according to patient size were utilized for this examination. All measurements were calculated based on NASCET criteria. CT DOSE: 1145.83 mGy.cm Comparison: None available at the time of this dictation. FINDINGS: CT head: There is no acute intracranial hemorrhage or evidence of acute territorial infarction. No shift of the midline structures, mass effect, or extra-axial abnormalities are shown. Lungs and soft tissues are unremarkable. CTA Neck: A 3 vessel aortic arch is shown. There is no significant atherosclerotic plaque in the aortic arch or the origins of the innominate, left common carotid, and left subclavian arteries. There is approximately 60% stenosis of the left internal carotid artery owing to atherosclerosis at the carotid bifurcation. There is approximately 80% stenosis in the right internal carotid artery at the bifurcation. The vertebral arteries are codominant. CTA Head: The anterior and posterior cerebral circulations are patent. No h emodynamically significant stenosis, aneurysm, dissection, or arteriovenous malformation is shown. IMPRESSION: 1. No acute intracranial hemorrhage, evidence of acute territorial infarction, or other acute intracranial disease process. 2. 80% right and 60% left carotid artery stenosis is seen, likely on a chronic basis 3. No occlusion, hemodynamically significant stenosis, aneurysm, dissection, or arteriovenous malformation in the major intracranial arteries. Assessment of stenosis of the internal carotid arteries is based on NASCET criteria. ACT 112: Negative or not required by law. Electronically signed by: Jesús Steele M.D. 09/27/2024 2:44 PM Neck CTA 09/27/24 13:11 CT angio neck with con, CT head/brain wo con, CT angio head w con CLINICAL HISTORY: neuro deficit, acute stroke suspected TECHNIQUE: Contiguous axial CT images of the head were acquired from the base of the skull to the vertex without intravenous contrast administration. CT angiography of the head and neck was performed following intravenous administration of iodinated contrast. Coronal and sagittal MIPS were obtained from the axial data set and were submitted for review. Automated dose lowering techniques and/or adjustment according to patient size were utilized for this examination. All measurements were calculated based on NASCET criteria. CT DOSE: 1145.83 mGy.cm Comparison: None available at the time of this dictation. FINDINGS: CT head: There is no acute intracranial hemorrhage or evidence of acute territorial infarction. No shift of the midline structures, mass effect, or extra-axial abnormalities are shown. Lungs and soft tissues are unremarkable. CTA Neck: A 3 vessel aortic arch is shown. There is no significant atherosclerotic plaque in the aortic arch or the origins of the innominate, left common carotid, and left subclavian arteries. There is approximately 60% stenosis of the left internal carotid artery owing to atherosclerosis at the carotid bifurcation. There is approximately 80% stenosis in the right internal carotid artery at the bifurcation. The vertebral arteries are codominant. CTA Head: The anterior and posterior cerebral circulations are patent. No hemodynamically significant stenosis, aneurysm, dissection, or arteriovenous malformation is shown. IMPRESSION: 1. No acute intracranial hemorrhage, evidence of acute territorial infarction, or other acute intracranial disease process. 2. 80% right and 60% left carotid artery stenosis is seen, likely on a chronic basis 3. No occlusion, hemodynamically significant stenosis, aneurysm, dissection, or arteriovenous malformation in the major intracranial arteries. Assessment of stenosis of the internal carotid arteries is based on NASCET criteria. ACT 112: Negative or not required by law. Electronically signed by: Jesús Steele M.D. 09/27/2024 2:44 PM Medications Administered Discontinued Medications Ioversol (Optiray 320 125ml) 112 ml IV ONCE ONE Stop: 09/27/24 13:32 Last Admin: 09/27/24 13:31 Dose: 112 ml Documented By: J Code Status & VTE Plan Code Status FULL CODE Supervising Physician Co-Signing Physician Notes Attending Addendum: Case reviewed with the advanced practitioner. I have personally performed a history and physical examination on the patient. I have reviewed the advanced practitioner's documentation on the date of service referenced in note, and I agree with, and take responsibility for the plan of care. please refer to her notes for full details patient seen and examined, records reviewed by myself as well ASSESSMENT AND PLAN Ataxia Possible acute CVA CT head: Negative CT angio head and neck: Bilateral carotid artery stenosis, 80% right, 60% left Brain MRI: Pending Echocardiogram: Pending Already on aspirin, Plavix, statin, continue Blood pressure control Neurology service consulted other diagnoses and plan of care as per advanced practitioner's notes Jonathan Horner MD (2) Uncontrolled diabetes mellitus with hyperglycemia Diabetes mellitus type: type 2 Qualified Code(s): E11.65 - Type 2 diabetes mellitus with hyperglycemia
[2024-09-27 15:31] LABS: Appearance Urine Clear (Clear); Bilirubin Urine Negative (Negative); Blood Urine Negative (Negative); Color Urine Yellow; Glucose Urine UA 3+ (Negative); Ketones Urine Negative (Negative); Leukocyte Esterase Urine Negative (Negative); Nitrite Urine Negative (Negative); Protein Urine Negative (Negative); Specific Gravity Urine 1.034 (1.000-1.030); Urobilinogen Urine Negative (Negative)
[2024-09-27] MEDS: NovoLIN-R INSULIN PER UNIT CHARGE IV STA (15:52)
--- NOTE | 2024-09-27 16:50 | Electrocardiogram Report ---
Test Reason : Blood Pressure : */* mmHG Vent. Rate : 77 BPM Atrial Rate : 77 BPM P-R Int : 184 ms QRS Dur : 92 ms QT Int : 416 ms P-R-T Axes : 102 14 50 degrees QTcB Int : 470 ms Sinus rhythm with Premature atrial complexes Otherwise normal ECG When compared with ECG of 01-Jul-2024 09:33, No significant change was found Confirmed by Dea Velez (Nano) on 09/27/2024 4:49:53 PM Referred By: Lele Alanis Confirmed By: Dea Velez
[2024-09-27] MEDS ORDERED: POLYETHYLENE (MIRALAX) 17 GM PACK PO PRN (18:05)
[2024-09-27] MEDS ORDERED: PHARMACIST DISCHARGE MED REC CONSULT PRN (18:05)
[2024-09-27] MEDS ORDERED: MAGNESIUM HYDROXIDE SUSP 30 ML UDC PO PRN (18:05)
[2024-09-27] MEDS: ACETAMINOPHEN 325 MG TAB PO PRN (18:22)
[2024-09-27] MEDS ORDERED: GLUCOSE 10 TAB/TUBE PO PRN (18:47)
[2024-09-27] MEDS ORDERED: GLUCAGON FOR INJ 1 MG VIAL SQ PRN (18:47)
[2024-09-27] MEDS ORDERED: GLUCOSE 40% GEL 15 GM TUBE PO PRN (18:47)
[2024-09-27] MEDS ORDERED: PHARMACY GLYCEMIC MGMT CONSULT PRN (18:47)
[2024-09-27] MEDS ORDERED: DEXTROSE 50% 50 ML SYRINGE IV PRN (18:47)
[2024-09-27] MEDS ORDERED: CARBOHYDRATES FOR HYPOGLYCEMIA PO PRN (18:47)
[2024-09-27] MEDS ORDERED: LANTUS PER UNIT CHARGE SQ SCH (21:00)
[2024-09-27] MEDS: GABAPENTIN 300 MG CAP PO SCH (21:06)
[2024-09-27] MEDS: LANTUS PER UNIT CHARGE SQ ONE (21:17)
[2024-09-27] MEDS: INSULIN ASPART PER UNIT CHARGE SC ONE (21:17)
[2024-09-28] MEDS: INSULIN ASPART PER UNIT CHARGE SC SCH (00:13)
[2024-09-28 04:35] LABS: Hematocrit (blood only) 40.6 % (42.0-52.0); Mean Corpuscular Hemoglobin 29.8 pg (25.0-34.0); Mean Corpuscular Hgb Conc 34.5 g/dL (32.0-36.0); Mean Corpuscular Volume 86.4 fL (80.0-100.0); Mean Platelet Volume 10.1 fL (9.4-12.4); Platelet Count 140 K/uL (130-400); RDW Coefficient of Variation 13.2 % (11.5-14.5); RDW Standard Deviation 41.2 fL (36.4-46.3); White Blood Count 5.92 K/ul (4.8-10.8)
[2024-09-28 04:49] LABS: BUN Creatinine Ratio 15.2 (10-20); Calcium 8.7 mg/dl (8.6-10.3); Chol HDL Ratio 4.1 (0-5); Creatinine Clr Calc Pharmacy 79.4 ml/min; Magnesium 2.3 mg/dl (1.7-2.4); Phosphorus 4.2 mg/dl (2.5-4.9); Potassium 3.7 mmol/L (3.5-5.1)
--- NOTE | 2024-09-28 07:51 | Pharmacy Report ---
Pharmacy Glycemic Short Note 2 - Date of Service September 28, 2024 - Glycemic Short BSG Results (Last 24 hours): 09/27/24 09/27/24 09/27/24 13:15 13:24 15:55 Glucose 492 H* POC Glucose 289 H POC Glucose (other) 454 H* 09/27/24 09/27/24 09/27/24 18:37 20:55 20:58 Glucose POC Glucose 263 H 328 H* 285 H POC Glucose (other) 09/28/24 09/28/24 00:11 03:47 Glucose 178 H POC Glucose 141 H POC Glucose (other) OUTPATIENT ANTIDIABETIC REGIMEN: * Lantus 42 units SQ BID * A1c 10.7% approximately 3 weeks ago per H&P ASSESSMENT: * 74 yo M admitted for ataxia/ possible CVA, Uncontrolled Type 2 DM, BG 454 on presentation. 6U IV Novolin-R in the ED, BG improved to 217. Patient endorses poor BSG monitoring at home. * 40 units of Lantus given last night, then will only give 50% of home dose to start today since patient will also receive prandial/correctional insulin with NovoLog while inpatient. * Titrate insulin dosing to goal blood sugar. * Type 2 DM diet ordered, CDE consulted. PLAN FOR INPATIENT GLYCEMIC CONTROL: * Basal insulin * Lantus 40 units SQ x 1 last night, then 20 units BID starting this AM * Bolus insulin * NovoLog per scale ACHS or Q6hrs while NPO * Goal Range: Low 110 mg/dL - High 140 mg/dL * Correction Factor: 20 mg/dL/unit * Nutritional / Prandial insulin per carb ratio of 1 unit per 6 grams CHO consumed
[2024-09-28] MEDS: CLOPIDOGREL BISULFATE 75 MG TAB PO SCH (08:03)
[2024-09-28] MEDS: ASPIRIN 81 MG ECTAB PO SCH (08:03)
[2024-09-28] MEDS: EZETIMIBE 10 MG TAB PO SCH (08:03)
[2024-09-28] MEDS: RANOLAZINE 500 MG ER TAB PO SCH (08:03)
[2024-09-28] MEDS: METOPROLOL SUCC 25MG EXT REL TAB PO SCH (08:03)
[2024-09-28] MEDS: ROSUVASTATIN CALCIUM 20 MG TAB PO SCH (08:03)
[2024-09-28] MEDS: LANTUS PER UNIT CHARGE SQ SCH (08:39)
--- NOTE | 2024-09-28 12:20 | Neurology Consultation ---
Date of Consultation September 28, 2024 Assessment & Plan (1) Stroke-like symptom: Gait instibility in a 74M with a PMH of HTN, HLD and DM. HIs exam is non-focal but he continues to report instability with ambulation. CTA shows right carotid stenosis of 80% but no evolving stroke. He does have a penile implant but has had numerous MRI scans since. 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 After connecting through interactive tele-video, patient was identified by name and date of and/or wristband check.Patient (or authorized healthcare represe ntative) was informed that this was a telemedicine visit and it was being conducted confidentially over secure lines. My office door was closed and no one else was present in the room with me.Patient (or authorized healthcare phone representative) provided consent to proceed with the visit, expressed an understanding of privacy and security of the telemedicine visit, and gave permission to have a hospital phone representative in the room in order to assist with the visit and to conduct portions of the visit, as needed. I informed the patient (or authorized healthcare phone representative) that I reviewed their record and presented the opportunity for them to ask any questions regarding the visit today. The patient agreed to participate. History of Present Illness Reason for Consultation: Stroke like symptoms Attending Physician: Bernabe Keith DO History of Present Illness Rm Rothman is a 74M with a PMH of CAD, bilateral carotid disease, DM2, prior stroke, HLD and OSKAR who presents with stroke like symptoms. he reports that on Sunday night feeling fine and then woke up on sunday morning and couldn't. He reports feeling imbalanced, but his legs felt strong. He couldn't walk in a straight line. He denies room spinning, speech changes, double vision, and dysphagia. Currently he reports that his symptoms have gotten no better and the walking may have gotten worse. He denies feeling clumsy with his hands. No new medication, and he denies recent illnesses. Allergies Allergy/AdvReac Type Severity Reaction Status Date / Time clarithromycin AdvReac Unknown nausea/vomi Verified 07/30/23 09:52 t metformin AdvReac Unknown DIARHEA Verified 07/30/23 09:52 Home Medications Medication Instructions Recorded Confirmed Type aspirin 81 mg tablet,delayed 81 mg PO QAM 02/10/19 09/27/24 History release (Aspir-) clopidogrel 75 mg tablet (Plavix) 75 mg PO QAM 02/10/19 09/27/24 History rosuvastatin 40 mg tablet 40 mg PO QAM 02/10/19 09/27/24 History ezetimibe 10 mg tablet 10 mg PO QAM 09/27/24 09/27/24 History gabapentin 300 mg tablet 300 mg PO BID 09/27/24 09/27/24 History insulin glargine 100 unit/mL (3 42 unit subcut BID 09/27/24 09/27/24 History mL) subcutaneous pen metoprolol succinate 25 mg 25 mg PO QAM 09/27/24 09/27/24 History tablet,extended release 24 hr ranolazine 500 mg tablet,extended 500 mg PO QAM 09/27/24 09/27/24 History release,12 hr Patient History Medical History Pressure ulcer of left foot follows with [facility] wound clinic, no signs of infection per 07/25 note History of pneumothorax traumatic, 2019 Surgical History Hx of left cataract extraction Hx of right cataract extraction History of cardiac cath X 5-TOTAL 4 STENTS 10/1999,12/1999,11/2006,2007,08/2016 History of coronary artery bypass graft 4 VESSELS 2006-[facility] [place]-F/U DR CHEEMA History of colonoscopy Family History Other Family history non-contributory Social History Smoking Status: Never smoker Second Hand Exposure: Yes (in the past); Do You Dip or Chew Tobacco: No; Hx Alcohol Use: No Hx Substance Use: No Preferred Language: Welsh Communication Ability: Effective Dental Laboratory Manager Required: No Beliefs That Will Affect Care: None Current Living Situation: Spouse Feels Safe at Home: Yes Safety Concerns: Feels Safe At This Time Assistive Devices: CPAP, Denture - Upper, Denture - Lower and Glasses Review of Systems See HPI Physical Exam NEUROLOGIC EXAMINATION: Mental Status:alert, oriented to time, place, person, normal recent memory, normal remote memory, normal attention span, normal concentration, normal language, and normal fund of knowledge Cranial Nerves: CN 2 - no visual defect on confrontation and pupils round, equal, reactive to light CN 3, 4, 6 - extra-ocular movements intact and no nystagmus CN 5 - facial sensation intact CN 7 - no facial asymmetry CN 8 - intact hearing CN 9, 10 - palate symmetric, normal gag CN 11 - good shoulder shrug CN 12 - tongue midline MOTOR: Strength was at least antigravity throughout, Pronator drift was absent, and There were no abnormal movements SENSATION: intact GAIT: deferred COORDINATION: no ataxia with finger to nose testing and heel to rios testing REFLEXES: cannot assess over telemedicine Results & Data Vital Signs (Past 12 Hours) Vital Signs Temp Pulse Pulse Resp BP BP Pulse Ox 09/28/24 12:13 36.3 C L 70 18 106/66 97 09/28/24 07:55 69 09/28/24 07:50 36.5 C 76 18 146/70 H 96 09/28/24 02:22 36.3 C L 80 20 144/72 H 97 O2 Del Method 09/28/24 12:13 Room Air 09/28/24 07:55 09/28/24 07:50 Room Air 09/28/24 02:22 Room Air Laboratory Results Abnormal Lab Results 09/27/24 09/27/24 09/27/24 13:15 13:24 15:18 WBC 5.22 RBC 5.04 Hgb 15.1 POC Hgb 15.3 Hct 44.2 POC Hct 45 MCV 87.7 MCH 30.0 MCHC 34.2 RDW Std Deviation 41.7 RDW Coeff of Ashwini 13.1 Plt Count 162 MPV 10.1 Immature Gran % (Auto) 0.2 Neut % (Auto) 68.8 Lymph % (Auto) 22.4 [place] % (Auto) 6.9 Eos % (Auto) 1.3 Baso % (Auto) 0.4 Neut # (Auto) 3.59 Lymph # (Auto) 1.17 L [place] # (Auto) 0.36 Eos # (Auto) 0.07 Baso # (Auto) 0.02 Immature Gran # (Auto) 0.01 PT 10.1 INR 0.9 APTT 25 PTT Ratio 0.9 POC Sodium 139 Sodium 138 POC Potassium 4.5 Potassium 5.0 POC Chloride 102 Chloride 102 Carbon Dioxide 29 POC Total CO2 26 Anion Gap 7 POC Anion Gap 15.0 L POC BUN 14 BUN 15 Creatinine 1.08 POC Creatinine 1.0 Est Cr Clr Drug Dosing Not Reportable eGFR 72.91 BUN/Creatinine Ratio 13.9 Glucose 492 H* POC Glucose POC Glucose (other) 454 H* Calcium 8.9 POC Ioniz Calcium Edmund 1.15 Phosphorus Magnesium 2.3 Total Bilirubin 0.6 AST 20 ALT 14 Alkaline Phosphatase 81 Troponin I High Sens 5.0 Total Protein 7.1 Albumin 4.1 Globulin 3.0 Albumin/Globulin Ratio 1.4 Triglycerides Cholesterol LDL Cholesterol, Calc VLDL Cholesterol, Calc HDL Cholesterol Cholesterol/HDL Ratio Urine Color Yellow Urine Appearance Clear Urine pH 5.0 Ur Specific [place] 1.034 H Urine Protein Negative Urine Glucose (UA) 3+ H Urine Ketones Negative Urine Blood Negative Urine Nitrite Negative Urine Bilirubin Negative Urine Urobilinogen Negative Ur Leukocyte Esterase Negative 09/27/24 09/27/24 09/27/24 15:55 18:37 20:55 WBC RBC Hgb POC Hgb Hct POC Hct MCV MCH MCHC RDW Std Deviation RDW Coeff of Ashwini Plt Count MPV Immature Gran % (Auto) Neut % (Auto) Lymph % (Auto) [place] % (Auto) Eos % (Auto) Baso % (Auto) Neut # (Auto) Lymph # (Auto) [place] # (Auto) Eos # (Auto) Baso # (Auto) Immature Gran # (Auto) PT INR APTT PTT Ratio POC Sodium Sodium POC Potassium Potassium POC Chloride Chloride Carbon Dioxide POC Total CO2 Anion Gap POC Anion Gap POC BUN BUN Creatinine POC Creatinine Est Cr Clr Drug Dosing eGFR BUN/Creatinine Ratio Glucose POC Glucose 289 H 263 H 328 H* POC Glucose (other) Calcium POC Ioniz Calcium Edmund Phosphorus Magnesium Total Bilirubin AST ALT Alkaline Phosphatase Troponin I High Sens Total Protein Albumin Globulin Albumin/Globulin Ratio Triglycerides Cholesterol LDL Cholesterol, Calc VLDL Cholesterol, Calc HDL Cholesterol Cholesterol/HDL Ratio Urine Color Urine Appearance Urine pH Ur Specific [place] Urine Protein Urine Glucose (UA) Urine Ketones Urine Blood Urine Nitrite Urine Bilirubin Urine Urobilinogen Ur Leukocyte Esterase 09/27/24 09/28/24 09/28/24 20:58 00:11 03:47 WBC 5.92 RBC 4.70 Hgb 14.0 POC Hgb Hct 40.6 L POC Hct MCV 86.4 MCH 29.8 MCHC 34.5 RDW Std Deviation 41.2 RDW Coeff of Ashwini 13.2 Plt Count 140 MPV 10.1 Immature Gran % (Auto) Neut % (Auto) Lymph % (Auto) [place] % (Auto) Eos % (Auto) Baso % (Auto) Neut # (Auto) Lymph # (Auto) [place] # (Auto) Eos # (Auto) Baso # (Auto) Immature Gran # (Auto) PT INR APTT PTT Ratio POC Sodium Sodium 139 POC Potassium Potassium 3.7 D POC Chloride Chloride 105 Carbon Dioxide 28 POC Total CO2 Anion Gap 6 POC Anion Gap POC BUN BUN 14 Creatinine 0.92 POC Creatinine Est Cr Clr Drug Dosing 79.4 eGFR 88.38 BUN/Creatinine Ratio 15.2 Glucose 178 H POC Glucose 285 H 141 H POC Glucose (other) Calcium 8.7 POC Ioniz Calcium Edmund Phosphorus 4.2 Magnesium 2.3 Total Bilirubin AST ALT Alkaline Phosphatase Troponin I High Sens Total Protein Albumin Globulin Albumin/Globulin Ratio Triglycerides 221 H Cholesterol 134 LDL Cholesterol, Calc 57 VLDL Cholesterol, Calc 44 H HDL Cholesterol 33 Cholesterol/HDL Ratio 4.1 Urine Color Urine Appearance Urine pH Ur Specific [place] Urine Protein Urine Glucose (UA) Urine Ketones Urine Blood Urine Nitrite Urine Bilirubin Urine Urobilinogen Ur Leukocyte Esterase 09/28/24 09/28/24 07:48 12:03 WBC RBC Hgb POC Hgb Hct POC Hct MCV MCH MCHC RDW Std Deviation RDW Coeff of Ashwini Plt Count MPV Immature Gran % (Auto) Neut % (Auto) Lymph % (Auto) [place] % (Auto) Eos % (Auto) Baso % (Auto) Neut # (Auto) Lymph # (Auto) [place] # (Auto) Eos # (Auto) Baso # (Auto) Immature Gran # (Auto) PT INR APTT PTT Ratio POC Sodium Sodium POC Potassium Potassium POC Chloride Chloride Carbon Dioxide POC Total CO2 Anion Gap POC Anion Gap POC BUN BUN Creatinine POC Creatinine Est Cr Clr Drug Dosing eGFR BUN/Creatinine Ratio Glucose POC Glucose 155 H 199 H POC Glucose (other) Calcium POC Ioniz Calcium Edmund Phosphorus Magnesium Total Bilirubin AST ALT Alkaline Phosphatase Troponin I High Sens Total Protein Albumin Globulin Albumin/Globulin Ratio Triglycerides Cholesterol LDL Cholesterol, Calc VLDL Cholesterol, Calc HDL Cholesterol Cholesterol/HDL Ratio Urine Color Urine Appearance Urine pH Ur Specific [place] Urine Protein Urine Glucose (UA) Urine Ketones Urine Blood Urine Nitrite Urine Bilirubin Urine Urobilinogen Ur Leukocyte Esterase Diagnostic Findings Chest X-Ray 09/27/24 13:11 XR chest 1V portable CLINICAL HISTORY: neuro deficit, acute stroke suspected TECHNIQUE: Single frontal radiograph of the chest was obtained. Comparison: Comparison is made to chest radiograph 07/01/2024 FINDINGS: Median sternotomy wires are unchanged. Calcified aortic knob is seen. The lungs are clear. No evidence of pleural effusion or pneumothorax. IMPRESSION: No acute chest disease. ACT 112: Negative or not required by law. Electronically signed by: Jesús Steele M.D. 09/27/2024 2:[address] 09/27/24 13:11 CT angio neck with con, CT head/brain wo con, CT angio head w con CLINICAL HISTORY: neuro deficit, acute stroke suspected TECHNIQUE: Contiguous axial CT images of the head were acquired from the base of the skull to the vertex without intravenous contrast administration. CT angiography of the head and neck was performed following intravenous administration of iodinated contrast. Coronal and sagittal MIPS were obtained from the axial data set and were submitted for review. Automated dose lowering techniques and/or adjustment according to patient size were utilized for this examination. All measurements were calculated based on NASCET criteria. CT DOSE: 1145.83 mGy.cm Comparison: None available at the time of this dictation. FINDINGS: CT head: There is no acute intracranial hemorrhage or evidence of acute territorial infarction. No shift of the midline structures, mass effect, or extra-axial abnormalities are shown. Lungs and soft tissues are unremarkable. CTA Neck: A 3 vessel aortic arch is shown. There is no significant atherosclerotic plaque in the aortic arch or the origins of the innominate, left common carotid, and left subclavian arteries. There is approximately 60% steno sis of the left internal carotid artery owing to atherosclerosis at the carotid bifurcation. There is approximately 80% stenosis in the right internal carotid artery at the bifurcation. The vertebral arteries are codominant. CTA Head: The anterior and posterior cerebral circulations are patent. No hemodynamically significant stenosis, aneurysm, dissection, or arteriovenous malformation is shown. IMPRESSION: 1. No acute intracranial hemorrhage, evidence of acute territorial infarction, or other acute intracranial disease process. 2. 80% right and 60% left carotid artery stenosis is seen, likely on a chronic basis 3. No occlusion, hemodynamically significant stenosis, aneurysm, dissection, or arteriovenous malformation in the major intracranial arteries. Assessment of stenosis of the internal carotid arteries is based on NASCET criteria. ACT 112: Negative or not required by law. Electronically signed by: Jesús Steele M.D. 09/27/2024 2:44 PM Head CTA 09/27/24 13:11 CT angio neck with con, CT head/brain wo con, CT angio head w con CLINICAL HISTORY: neuro deficit, acute stroke suspected TECHNIQUE: Contiguous axial CT images of the head were acquired from the base of the skull to the vertex without intravenous contrast administration. CT angiography of the head and neck was performed following intravenous administration of iodinated contrast. Coronal and sagittal MIPS were obtained from the axial data set and were submitted for review. Automated dose lowering techniques and/or adjustment according to patient size were utilized for this examination. All measurements were calculated based on NASCET criteria. CT DOSE: 1145.83 mGy.cm Comparison: None available at the time of this dictation. FINDINGS: CT head: There is no acute intracranial hemorrhage or evidence of acute territorial infarction. No shift of the midline structures, mass effect, or extra-axial abnormalities are shown. Lungs and soft tissues are unremarkable. CTA Neck: A 3 vessel aortic arch is shown. There is no significant atherosclerotic plaque in the aortic arch or the origins of the innominate, left common carotid, and left subclavian arteries. There is approximately 60% stenosis of the left internal carotid artery owing to atherosclerosis at the carotid bifurcation. There is approximately 80% stenosis in the right internal carotid artery at the bifurcation. The vertebral arteries are codominant. CTA Head: The anterior and posterior cerebral circulations are patent. No hemodynamically significant stenosis, aneurysm, dissection, or arteriovenous malformation is shown. IMPRESSION: 1. No acute intracranial hemorrhage, evidence of acute territorial infarction, or other acute intracranial disease process. 2. 80% right and 60% left carotid artery stenosis is seen, likely on a chronic basis 3. No occlusion, hemodynamically significant stenosis, aneurysm, dissection, or arteriovenous malformation in the major intracranial arteries. Assessment of stenosis of the internal carotid arteries is based on NASCET criteria. ACT 112: Negative or not required by law. Electronically signed by: Jesús Steele M.D. 09/27/2024 2:44 PM Neck CTA 09/27/24 13:11 CT angio neck with con, CT head/brain wo con, CT angio head w con CLINICAL HISTORY: neuro deficit, acute stroke suspected TECHNIQUE: Contiguous axial CT images of the head were acquired from the base of the skull to the vertex without intravenous contrast administration. CT angiography of the head and neck was performed following intravenous administration of iodinated contrast. Coronal and sagittal MIPS were obtained from the axial data set and were submitted for review. Automated dose lowering techniques and/or adjustment according to patient size were utilized for this examination. All measurements were calculated based on NASCET criteria. CT DOSE: 1145.83 mGy.cm Comparison: None available at the time of this dictation. FINDINGS: CT head: There is no acute intracranial hemorrhage or evidence of acute territorial infarction. No shift of the midline structures, mass effect, or extra-axial abnormalities are shown. Lungs and soft tissues are unremarkable. CTA Neck: A 3 vessel aortic arch is shown. There is no significant atherosclerotic plaque in the aortic arch or the origins of the innominate, left common carotid, and left subclavian arteries. There is approximately 60% stenosis of the left internal carotid artery owing to atherosclerosis at the carotid bifurcation. There is approximately 80% stenosis in the right internal carotid artery at the bifurcation. The vertebral arteries are codominant. CTA Head: The anterior and posterior cerebral circulations are patent. No hem odynamically significant stenosis, aneurysm, dissection, or arteriovenous malformation is shown.
--- NOTE | 2024-09-28 16:09 | Magnetic Resonance Report ---
Clinical History: Rule out stroke Technique: Multiple T1 and T2-weighted magnetic resonance images were obtained of the brain without gadolinium contrast Comparison is made to the head CT dated 02/10/2019 Findings: There is no sign of acute or old infarction with normal-appearing diffusion weighted images. There is cerebral atrophy, within expected limits for the patient's age. There are focal and confluent areas of increased T2 signal intensity within the periventricular white matter of the cerebral hemispheres bilaterally. This is most likely due to chronic small vessel ischemic disease. No definite mass lesion is seen on this noncontrast study. There is no intracranial hemorrhage or other fluid collection. No midline shift or other form of herniation is seen. There is no hydrocephalus. Normal flow-voids are seen within the arteries of the [id number]. The orbits and paranasal sinuses appear normal. There is partial opacification of left mastoid air cells Impression: 1. Cerebral atrophy and chronic small vessel ischemic disease 2. Mild partial opacification of the left mastoid air cells, which may be due to inflammatory mastoiditis 3. No sign of infarction Electronically signed by Raymond Virk 09-28-2024 4:09 PM
--- NOTE | 2024-09-28 16:50 | Hospitalist Progress Note ---
Date of Service September 28, 2024 Assessment & Plan (1) Cerebellar stroke, acute: (2) Ataxia: (3) Uncontrolled diabetes mellitus with hyperglycemia: (4) Diabetic neuropathy: (5) History of cerebellar stroke: (6) Gait instability: (7) Bilateral carotid artery disease: (8) OSKAR (obstructive sleep apnea): Plan Patient continues with significant ataxia. Unsafe to go home. Communication with neurology, reviewed MRI, suspect patient may have an MRI negative acute cerebellar stroke based on clinical exam. Continue with dual antiplatelet therapy Continue with secondary stroke prevention measures with diabetes management and hypertension management Physical therapy and Occupational Therapy evaluations pending and patient aware that he may need a rehab stay prior to returning home Admission and Anticipated Discharge Date Admission Date: September 27, 2024 Subjective Patient states that he suddenly woke up with a ataxia on Sunday. Reports going to bed Sunday night normal. Very concerned that we may find cancer Physical Exam Physical Exam: Constitutional: Alert HEENT: Mucous membranes moist. Lungs: Clear to auscultation, decreased, no wheezes rales or rhonchi CV: S1-S2, regular Abdomen: Soft, nontender, nondistended Extremities: No significant edema Neuro: No focal deficits, strength intact in all 4 extremities, ataxia with ambulation listing to the back and right Psych: Cooperative, anxious Results & Data Results & Data Vital Signs (Past 12 Hours) Vital Signs Temp Pulse Pulse Resp BP Pulse Ox O2 Del Method 09/28/24 14:21 74 09/28/24 14:17 36.4 C L 72 17 158/82 H 97 Room Air 09/28/24 12:13 36.3 C L 70 18 106/66 97 Room Air 09/28/24 07:55 69 09/28/24 07:50 36.5 C 76 18 146/70 H 96 Room Air Diagnostic Findings Reviewed imaging, laboratory and diagnostic studies. Pertinent findings as below. CBC, BMP stable Triglycerides 221 MRI brain negative for acute findings I reviewed outside EMR Echocardiogram done 09/25/2024 shows normal ejection fraction, no evidence of ASD/PFO, mildly dilated atrium, no significant valvular dysfunction Reviewed previous MRI from June, questionable cerebellar stroke at that time Reviewed outpatient neurology office visit notes. They recommended ongoing vascular risk reduction (3) Uncontrolled diabetes mellitus with hyperglycemia Diabetes mellitus type: type 2 Qualified Code(s): E11.65 - Type 2 diabetes mellitus with hyperglycemia (7) Bilateral carotid artery disease Carotid artery disease type: unspecified Qualified Code(s): I77.9 - Disorder of arteries and arterioles, unspecified
[2024-09-28] MEDS: lisinopril 5 MG TAB PO SCH (17:23)
[2024-09-28] MEDS: oxyCODONE HCL IR 5 MG TAB (IMMEDIATE RELEASE) PO PRN (17:32)
[2024-09-29] MEDS: LANTUS PER UNIT CHARGE SQ SCH (08:42)
--- NOTE | 2024-09-29 10:23 | Communication Note ---
Date of Service: September 29, 2024 MRI reviewed and shows no acute ischemic infarct to contribute to the patient's ambulatory dysfunction. Right ICA stenosis of 80% can be followed up by neuroendovascular as outpatient. Can de-escalate antiplatelets to aspirin 81 mg in addition to statins. PT OT. Rule out underlying infectious etiology. Neurology will sign off
[2024-09-29] MEDS: ONDANSETRON INJ 2 MG/ML 2 ML VIAL IV PRN (12:46)
--- NOTE | 2024-09-29 13:56 | Pharmacy Report ---
Pharmacy Glycemic Short Note 2 - Date of Service September 29, 2024 - Glycemic Short BSG Results (Last 24 hours): 09/28/24 09/28/24 09/29/24 17:02 20:20 07:08 POC Glucose 201 H 177 H 271 H 09/29/24 12:05 POC Glucose 214 H OUTPATIENT ANTIDIABETIC REGIMEN: * Lantus 42 units SQ BID * A1c 10.7% approximately 3 weeks ago per H&P ASSESSMENT: 09/29 * Rm received 81 units of insulin yesterday (40 were basal) * Fasting BSG this AM significantly elevated, increase basal insulin by 20% * Novolog tightened, no glycemic stressors noted at this time. 09/28 * 74 yo M admitted for ataxia/ possible CVA, Uncontrolled Type 2 DM, BG 454 on presentation. 6U IV Novolin-R in the ED, BG improved to 217. Patient endorses poor BSG monitoring at home. * 40 units of Lantus given last night, then will only give 50% of home dose to start today since patient will also receive prandial/correctional insulin with NovoLog while inpatient. * Titrate insulin dosing to goal blood sugar. * Type 2 DM diet ordered, CDE consulted. PLAN FOR INPATIENT GLYCEMIC CONTROL: * Basal insulin * Lantus 40 units SQ x 1 last night, then 20 units BID starting this AM * Bolus insulin * NovoLog per scale ACHS or Q6hrs while NPO * Goal Range: Low 110 mg/dL - High 140 mg/dL * Correction Factor: 20 mg/dL/unit * Nutritional / Prandial insulin per carb ratio of 1 unit per 6 grams CHO consumed
--- NOTE | 2024-09-29 16:18 | Hospitalist Progress Note ---
Date of Service September 29, 2024 Assessment & Plan (1) Cerebellar stroke, acute: (2) Ataxia: (3) Uncontrolled diabetes mellitus with hyperglycemia: (4) Diabetic neuropathy: (5) History of cerebellar stroke: (6) Gait instability: (7) Bilateral carotid artery disease: (8) OSKAR (obstructive sleep apnea): Plan Reviewed neurology communication report today. Low suspicion for any infectious process. Will continue with dual antiplatelet therapy and treating as clinical cerebellar stroke. Continue therapies Restart Jardiance for better diabetes control, high suspicion that uncontrolled diabetes contributed to patient's clinical presentation Case management pursuing possible rehab placement updated via phone while visiting with patient earlier today Discontinue oxycodone, makes patient nauseated, trial of tramadol and ibuprofen for headache Admission and Anticipated Discharge Date Admission Date: September 28, 2024 Subjective Patient still with significant ataxia. He reports that he has been on Jardiance he had stopped it because it thought he was making it dizzy. He was to restart it every other day. Reports that the oxycodone makes him nauseated. Still with a frontal headache. Physical Exam Physical Exam: Constitutional: Alert, nontoxic HEENT: Mucous membranes moist. Lungs: Clear to auscultation, decreased, no wheezes rales or rhonchi CV: S1-S2, regular Abdomen: Soft, nontender, nondistended Extremities: No significant edema Neuro: Ataxia Psych: Cooperative, normal mood Results & Data Results & Data Vital Signs (Past 12 Hours) Vital Signs Temp Pulse Pulse Resp BP Pulse Ox O2 Del Method 09/29/24 15:09 36.5 C 70 18 119/71 98 Room Air 09/29/24 14:30 79 09/29/24 12:03 36.5 C 82 18 132/73 95 Room Air 09/29/24 09:19 Room Air 09/29/24 07:34 76 09/29/24 07:09 36.6 C 18 96 Room Air Diagnostic Findings Reviewed imaging, laboratory and diagnostic studies. Pertinent findings as below. Glucoses reviewed, improved from admission (3) Uncontrolled diabetes mellitus with hyperglycemia Diabetes mellitus type: type 2 Qualified Code(s): E11.65 - Type 2 diabetes mellitus with hyperglycemia (7) Bilateral carotid artery disease Carotid artery disease type: unspecified Qualified Code(s): I77.9 - Disorder of arteries and arterioles, unspecified
[2024-09-29] MEDS: traMADol HCL 50 MG TABLET PO PRN (17:52)
[2024-09-30 06:27] LABS: Hematocrit (blood only) 41.3 % (42.0-52.0); Hemoglobin 13.9 g/dl (14.0-18.0); Mean Corpuscular Hemoglobin 29.5 pg (25.0-34.0); Mean Corpuscular Hgb Conc 33.7 g/dL (32.0-36.0); Mean Corpuscular Volume 87.7 fL (80.0-100.0); Mean Platelet Volume 10.1 fL (9.4-12.4); Platelet Count 138 K/uL (130-400); RDW Coefficient of Variation 13.3 % (11.5-14.5); RDW Standard Deviation 42.7 fL (36.4-46.3); Red Blood Count 4.71 M/uL (4.70-6.10); White Blood Count 5.54 K/ul (4.8-10.8)
[2024-09-30 06:40] LABS: BUN Creatinine Ratio 20.3 (10-20); Calcium 8.8 mg/dl (8.6-10.3); Creatinine Clr Calc Pharmacy 98.8 ml/min
[2024-09-30] MEDS ORDERED: EMPAGLIFLOZIN 25 MG TAB PO SCH (09:00)
[2024-09-30] MEDS: IBUPROFEN 200 MG TAB PO PRN (10:00)
--- NOTE | 2024-09-30 14:03 | Pharmacy Report ---
- Date of Service September 30, 2024 - Pharmacy CVA/TIA Medication Review Medications to Prevent Stroke handout has been added to the patients discharge packet. Antiplatelet(s) * aspirin 81 mg * plavix 75 mg daily Cholesterol * rosuvastatin 40 mg daily DVT Prophylaxis * SCD knee Therapeutic Anticoagulation * No history of Afib/Aflutter noted * Potential Zio patch for discharge Type 2 Diabetes * Patient has T2DM. Per notes, provider planning on adding empagliflozin at discharge
--- NOTE | 2024-09-30 15:49 | Hospitalist Progress Note ---
Date of Service September 30, 2024 Assessment & Plan (1) Cerebellar stroke, acute: Plan: Clinical diagnosis based on ataxia, MRI negative (2) Ataxia: (3) Uncontrolled diabetes mellitus with hyperglycemia: (4) Diabetic neuropathy: (5) History of cerebellar stroke: (6) Gait instability: (7) Bilateral carotid artery disease: (8) OSKAR (obstructive sleep apnea): Plan Continue with current care and therapy Lisinopril added and blood pressure improved Jardiance will be started outpatient, not started here in hospital due to the fact that it is being used for his diabetes. Patient has been accepted and authorization from insurance obtained for [facility] tomorrow Continue CPAP at rehab Admission and Anticipated Discharge Date Admission Date: September 28, 2024 Subjective Patient still somewhat ataxic with ambulation. Therapist at bedside during exam and confirms. Patient still complains of headache but improving Physical Exam Physical Exam: Constitutional: Alert, nontoxic HEENT: Mucous membranes moist. Lungs: Clear to auscultation, decreased, no wheezes rales or rhonchi CV: S1-S2, regular Abdomen: Soft, nontender, nondistended Extremities: No significant edema Neuro: Ataxic gait Psych: Cooperative, normal mood Results & Data Results & Data Vital Signs (Past 12 Hours) Vital Signs Temp Pulse Pulse Resp BP Pulse Ox O2 Del Method 09/30/24 11:00 Room Air, CPAP 09/30/24 10:58 36.4 C L 84 17 115/73 94 Room Air 09/30/24 07:47 36.6 C 82 17 120/74 96 Room Air 09/30/24 05:18 78 Diagnostic Findings Reviewed imaging, laboratory and diagnostic studies. Pertinent findings as below. Glucose was reviewed Electrolytes stable Creatinine 0.74 CBC stable (3) Uncontrolled diabetes mellitus with hyperglycemia Diabetes mellitus type: type 2 Qualified Code(s): E11.65 - Type 2 diabetes mellitus with hyperglycemia (7) Bilateral carotid artery disease Carotid artery disease type: unspecified Qualified Code(s): I77.9 - Disorder of arteries and arterioles, unspecified
[2024-10-01 04:55] VITALS: RESP 18; TEMP 97.7
[2024-10-01 07:48] VITALS: O2SAT 98
[2024-10-01] MEDS: LANTUS PER UNIT CHARGE SQ SCH (08:49)
[2024-10-01] MEDS ORDERED: STROKE PATIENT DISCHARGE STA (09:50)
--- NOTE | 2024-10-01 09:51 | Discharge Summary ---
Discharge Summary Date of Service October 01, 2024 Principal Dx & Hospital Course #1 = Principal Diagnosis (1) Cerebellar stroke, acute: Clinical diagnosis based on ataxia, MRI negative (2) Ataxia: (3) Uncontrolled diabetes mellitus with hyperglycemia: (4) Diabetic neuropathy: (5) History of cerebellar stroke: (6) Gait instability: (7) Bilateral carotid artery disease: (8) OSKAR (obstructive sleep apnea): Plan Rm Rothman is a 74-year-old male with past medical history significant for uncontrolled DM type II, diabetic polyneuropathy, dyslipidemia, diabetic retinopathy of both eyes without macular edema, OSKAR on CPAP, severe CAD s/p CABG x 4 in 2006 + multiple coronary interventions, history of WI, peripheral vascular disease, chronic ischemic heart disease, bilateral carotid artery stenosis, history of cerebellar infarctions, history of NSVT, vitamin D deficiency and history of second left toe partial amputation secondary to osteomyelitis who presented to the ED on 09/27/2024 secondary to ataxia. MRI did not reveal sign of infarction, however CTA did note 80% right and 60% left carotid artery stenosis is seen, likely on a chronic basis Infection was ruled out and no other clear etiology remarked. Neurology evaluated patient recommended continuing DAPT (though later in lieu of negative mri recommended deescalatrion, however, patient with atherosclerotic disease s/p interventions therefore continued.) PT recommeneded rehab. Advised follow up with Neurovascular specialist given carotid stenosis above Lisinopril added and blood pressure improved Jardiance will be started outpatient, not started here in hospital due to the fact that it is being used for his diabetes. Continue CPAP at rehab Patient doing well on day of discharge without acute concerns Notes For Next Care Provider Referral to Neurovascular specialist recommended given R ICA stenosis Medication Changes From Visit Lisinopril 5mg daily Admission HPI Per Admitting Provider Rm Rothman is a 74-year-old male with past medical history significant for uncontrolled DM type II, diabetic polyneuropathy, dyslipidemia, diabetic retinopathy of both eyes without macular edema, OSKAR on CPAP, severe CAD s/p CABG x 4 in 2006 + multiple coronary interventions, history of WI, peripheral vascular disease, chronic ischemic heart disease, bilateral carotid artery stenosis, history of cerebellar infarctions, history of NSVT, vitamin D deficiency and history of second left toe partial amputation secondary to osteomyelitis who presented to the ED on 09/27/2024 secondary to ataxia. History obtained from the patient, at bedside and associated chart review. Patient reports that he woke up this morning and was unable to walk appropriately. Mentions he was feeling completely fine and was in his normal state of health when he went to bed last evening around 8PM. States he feels as if he is "off balance" and lacks any sense of coordination. No falls or trauma at home. He denies any dizziness, lightheadedness, headache or visual disturbances. reports that he has not exhibited any other focal deficits such as speech difficulty, facial drooping or weakness/loss of strength in his extremities. Patient denies ever experiencing an event like this in the past. Patient got up to use the restroom while in the ED and required significant assistance from nursing staff whilst doing so as a result of his ataxia. He denies any chest pain, shortness of breath, fevers/chills or urinary/bowel habit changes. CXR was unremarkable. Head CT without any evidence of acute intracranial abnormalities. Head CTA was also unremarkable. Neck CTA noted chronic right (80%) and left (60%) carotid artery stenosis. Admission Exam Per Admitting Provider General: Vitals as above, NAD, laying down in bed, conversing appropriately. at beside. A+Ox3, euthymic affect. HEENT: Normocephalic, atraumatic. Conjunctivae normal. External ear and nose normal, oropharynx normal. Respiratory: Normal respiratory effort, lungs clear to auscultation, no wheeze/rales/rhonchi. No accessory muscle use. Cardiovascular: Regular rate, rhythm, normal peripheral pulses, no BLE edema. Vessels: No JVD. Abdomen/GI: Normal bowel sounds, soft, nondistended nontender to palpation in all quadrants. Extremities/Musculoskeletal: Extremity motor strength intact (5/5 throughout), did not visualize gait, able to lift BUE/BLE off bed. Neurologic: No facial drooping or speech difficulties, mentation normal, CN's II-XI not formally tested but appear grossly intact bilaterally. Discharge Exam Constitutional WD/WN, vitals as above Respiratory normal respiratory effort, lungs clear to auscultation Cardiovascular RRR, no murmur, no edema Gastrointestinal (Abdomen) normal bowel sounds, soft, nontender, no hepatosplenomegaly Updated Medication List Medication Instructions Recorded Confirmed Type aspirin 81 mg tablet,delayed 81 mg PO QAM 02/10/19 09/27/24 History release (Aspir-) clopidogrel 75 mg tablet (Plavix) 75 mg PO QAM 02/10/19 09/27/24 History rosuvastatin 40 mg tablet 40 mg PO QAM 02/10/19 09/27/24 History ezetimibe 10 mg tablet 10 mg PO QAM 09/27/24 09/27/24 History gabapentin 300 mg tablet 300 mg PO BID 09/27/24 09/27/24 History metoprolol succinate 25 mg 25 mg PO QAM 09/27/24 09/27/24 History tablet,extended release 24 hr ranolazine 500 mg tablet,extended 500 mg PO QAM 09/27/24 09/27/24 History release,12 hr empagliflozin 10 mg tablet 10 mg PO DAILY #30 tabs 09/30/24 Rx (Jardiance) insulin glargine 100 unit/mL (3 25 unit (0.25 mL) subcut BID #0 mL 09/30/24 09/27/24 Rx mL) subcutaneous pen lisinopril 5 mg tablet (Zestril) 5 mg PO QAM #30 tabs 09/30/24 Rx Hospital Stay Data Consultations 09/27/24 15:29 ED Decision to Admit Stat 09/27/24 16:06 Consult Neurology Routine Diagnostic Imagining Performed 09/27/24 13:11 CT angio head w con Stat CT angio neck with con Stat CT head/brain wo con Stat 09/28/24 09:22 MR brain wo con Routine Pending Results Patient Have Any Pending Studies at Discharge: No Discharge Instructions Given to Patient (Per Discharging Provider) Continue with therapies at rehab Continue with CPAP at rehab facility Right ICA stenosis of 80% can be followed up by neuroendovascular as outpatie nt. Please discuss with your PCP above a referral Please continue aspirin and plavix Total Time Total Time Spent Total Time Spent (In Minutes): 35
[2024-10-01 10:51] VITALS: BP 106/66; PULSE 77
== END 2024-10-01 11:33 | DRG 66 ==
LOC: EDINP 13:03 → ED 13:03 → SUATTDRO 16:05 → 4W 18:03 → SUATTDRO 09-28 16:50